=== PATIENT | female | born 1980 | race Caucasian/White ===

== ENCOUNTER → 2016-12-29 | Outpatient (CLI) | payer MEDICAID ==
[~2016-12-29] MED LIST: AMOX500C2 PO; BMSB30 PO; CYCL10TA9 PO; DIPH1TAB PO; DIPH1TAB25 PO; DIPH1TAB45 PO; HYDR-34 PO; HYDR-3812 PO; HYDR-623 PO; HYDR1TAB PO; LITH300C PO; LITH8SOL6 PO; LTH450TCR PO; METH4TAB PO; NAPR-243 PO; NAPR500T PO; PENI500T PO; PHEN16.297 PO; PRD20T PO; PRED20TA PO; THYR15TA PO; TRM50T PO; VENL75CA PO; VORT5TAB PO; ZOLP5TAB PO
[2016-12-29 13:12] LABS: ALANINE AMINOTRANSFERASE 8 U/L (0-55); ALBUMIN 3.8 G/DL (3.2-4.5); ANION GAP 7 MMOL/L (5-14); ASPARTATE AMINO TRANSFERASE 16 U/L (5-34); BILIRUBIN,TOTAL 0.2 MG/DL (0.1-1.0); BLOOD UREA NITROGEN 5 MG/DL (7-18); BUN/CREATININE RATIO 7; CARBON DIOXIDE 22 MMOL/L (21-32); CHLORIDE 108 MMOL/L (98-107); CREATININE SERUM 0.76 MG/DL (0.60-1.30); GFR ESTIMATED > 60; GLUCOSE 95 MG/DL (70-105); POTASSIUM 3.8 MMOL/L (3.6-5.0); SODIUM 137 MMOL/L (135-145); TOTAL PROTEIN 7.2 G/DL (6.4-8.2)
[2016-12-29 13:32] LABS: THYROID STIMULATING HORMONE 2.45 UIU/ML (0.35-4.94)
== END ==
LOC: LAB 12:37
PROVIDERS: ATTEND Nurse Practitioner Psychiatric/Mental Health
DX: Z51.81 Encounter for therapeutic drug level monitoring (principal); Z79.899 Other long term (current) drug therapy
CPT/HCPCS: 36415; 80053; 80178; 84443

== ENCOUNTER 2017-01-01 19:39 | Emergency (ER) | payer MEDICAID ==
[~2017-01-01] VITALS: Ht 162.6 cm; Wt 59.0 kg
[~2017-01-01 19:39] MED LIST changes: -NAPR500T PO
--- NOTE | 2017-01-01 19:51 | ED Hip Pain/Injury ---
General Chief Complaint: Hip/Pelvic Problems Stated Complaint: R LEG PAIN Source: patient Exam Limitations: no limitations History of Present Illness Time seen by provider: 19:48 Initial Comments To ER ambulatory with reports of right hip pain. She has intermittently had this problem for many years but states that it would be very brief and would go away on its own after only a few minutes. Today the pain has been persistent and worsened with any weightbearing of the right leg. She denies any known injury. Denies fevers or chills. She states that while she is walking she sometimes feels as though the hip is popped out of place and will go back into place. Timing/Duration: intermittent Severity: moderate Location: hip (R) Associated Symptoms: denies symptoms Allergies and Home Medications Allergies Coded Allergies: vancomycin (Unverified Allergy, Severe, 05/11/10) metoclopramide (Unverified Adverse Reaction, Intermediate, 05/11/10) Uncoded Allergies: DARVOCET (Allergy, Intermediate, 05/11/10) Home Medications No Active Prescriptions or Reported Meds Constitutional: see HPI EENTM: see HPI Respiratory: no symptoms reported Cardiovascular: no symptoms reported Genitourinary: no symptoms reported Musculoskeletal: see HPI Skin: no symptoms reported Psychiatric/Neurological: No Symptoms Reported Past Ioysfah-Gmjrns-Xmbccl Hx Patient Social History Type Used: Cigarettes Recent Foreign Travel: No Contact w/Someone Who Travel: No Recent Hopitalizations: No Immunizations Up To Date Tetanus Booster (TDap): Unknown Seasonal Allergies Seasonal Allergies: No Surgeries HX Surgeries: Yes (SMALL BOWEL RESECTION FOR CROHN'S ) Surgeries: Abdominal, Tubal Ligation Respiratory Hx Respiratory Disorders: No Cardiovascular Hx Cardiac Disorders: No Neurological Hx Neurological Disorders: No 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 System Hx 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 Disorders: 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 Genitourinary Hx Genitourinary Disorders: No Gastrointestinal Hx Gastrointestinal Disorders: Yes Gastrointestinal Disorders: Crohns Disease Musculoskeletal Hx Musculoskeletal Disorders: No Endocrine Hx Endocrine Disorders: Yes Endocrine Disorders: Hypothyroidsim HEENT HX ENT Disorders: No Cancer Hx Cancer: No Psychosocial Hx Psychiatric Problems: Yes (EXTREME NON-COMPLICANCE WITH MEDICATIONS ) Behavioral Health Disorders: Anxiety, Bipolar, Depression Integumentary HX Skin/Integumentary Disorder: No Blood Transfusions Hx Blood Disorders: No Adverse Reaction to a Blood Tr: No Physical Exam Vital Signs Vital Sign - Last 12Hours 01/01/17 19:45 Temp 97.9 Pulse 87 Resp 18 B/P (MAP) 145/97 Pulse Ox 99 O2 Delivery Room Air Capillary Refill : General Appearance: No Apparent Distress, WD/WN HEENT: PERRL/EOMI, TMs Normal Neck: Full Range of Motion, Normal Inspection Respiratory: No Accessory Muscle Use, No Respiratory Distress Gastrointestinal: Normal Bowel Sounds, Non Tender, Soft Extremity: Normal Capillary Refill, Normal Inspection Neurologic/Psychiatric: Alert, Oriented x3, No Motor/Sensory Deficits Skin: Normal Color, Warm/Dry Progress/Results/Core Measures Results/Orders My Orders Orders - IGOR MARIANO APRN Ct Extremity Lower Right Wo (01/01/17 19:47) Pelvis (01/01/17 19:47) Ketorolac Injection (Toradol Injection) (01/01/17 20:00) Orphenadrine Injection (Norflex Injectio (01/01/17 20:00) Medications Given in ED Current Medications Medications Dose Ordered Sig/Amaris Route Start Time Stop Time Status Last Admin Dose Admin Ketorolac Tromethamine 60 mg ONCE ONCE IM 01/01/17 20:00 01/01/17 20:01 DC 01/01/17 20:18 60 MG Orphenadrine Citrate 60 mg ONCE ONCE IM 01/01/17 20:00 01/01/17 20:01 DC 01/01/17 20:17 60 MG Vital Signs/I&O Vital Sign - Last 12Hours 01/01/17 19:45 Temp 97.9 Pulse 87 Resp 18 B/P (MAP) 145/97 Pulse Ox 99 O2 Delivery Room Air Departure Impression Impression: Primary Impression: Hip pain Qualified Codes: M25.551 - Pain in right hip Disposition: HOME, SELF-CARE Condition: Stable Departure-Patient Inst. Decision time for Depature: 20:31 Referrals: DAVID SNYDER MD [facility] (PCP/Family) Primary Care Physician KIM WOOD MD,ANGELA POTTS,NAHED Price MD Patient Instructions: Hip Pain Add. Discharge Instructions: 1. Medication as directed 2. Follow-up with one of the orthopedic surgeons next week. Call on Wednesday morning and orthopedic surgeon of your choosing to make an appointment for follow-up. All discharge instructions reviewed with patient and/or family. Voiced understanding. Scripts Naproxen (Naprosyn) 500 Mg Tablet 500 MG PO BID Y for PAIN, #30 TAB Prov: IGOR MARIANO APRN 01/01/17 IGOR MARIANO APRN Jan 01, 2017 19:50
[2017-01-01] MEDS ORDERED: KETOROLAC 60 MG/2 ML VIAL IM ONE (20:00)
[2017-01-01] MEDS ORDERED: ORPHENADRINE 60 MG/2 ML (NORFLEX) AMP IM ONE (20:00)
--- NOTE | 2017-01-01 20:28 | Diagnostic Imaging Report ---
PROCEDURE: CT right lower extremity without contrast. TECHNIQUE: Axially acquired CT was obtained through the right lower extremity without intravenous contrast. Coronal and sagittal reformations were also performed. INDICATION: Right hip pain. FINDINGS: The articular surfaces are smooth. The joint spaces appear even. There is no appreciable effusion. There is no fracture or dislocation. IMPRESSION: Negative CT of the right hip. Dictated by: Dictated on workstation # [id number]
--- NOTE | 2017-01-01 20:31 | Diagnostic Imaging Report ---
INDICATION: Right hip pain Shows asymmetric widening of the medial joint space of the hip. This could be due to an effusion. There is no fracture seen. IMPRESSION: Laterally displaced femur. Etiologies include possibility of an effusion. Dictated by: Dictated on workstation # [id number]
[2017-01-01] MEDS ORDERED: NAPR500T PO (20:32)
[2017-01-01 20:45] VITALS: BP 0/0
== END 2017-01-01 20:45 | disposition home or self-care (01) ==
LOC: EDUNIT# 19:39 → ER 19:40
DX: M25.551 Pain in right hip (principal)
CPT/HCPCS: 72170; 73700; 96372; 99283

== ENCOUNTER → 2017-02-08 | Outpatient (CLI) | payer MEDICAID ==
[~2017-02-08] MED LIST changes: +NAPR500T PO
--- NOTE | 2017-02-08 16:19 | Diagnostic Imaging Report ---
Bilateral breast ultrasound. Indication the left breast lump. Questionable asymmetry in the outer aspect of the right breast. Dense breasts. Findings: The four-quadrant and retroareolar region of each breast were scanned including the area of lump in the left breast at 2:00 zone 5 cm from the nipple with no underlying or mass seen. Impression: Negative study. Clinical followup of the palpable area is recommended. BI-RADS 1. Dictated by: Dictated on workstation # [id number]
--- NOTE | 2017-02-08 20:06 | Diagnostic Imaging Report ---
Bilateral diagnostic mammogram. INDICATION: Outer left breast palpable lump. The current study was also evaluated with a Computer Aided Detection (CAD) system. COMPARISON: No prior studies are available for comparison. FINDINGS: There is an asymmetry along the outer aspect of the right breast with focal compression view demonstrating no definite underlying abnormality which is suggestive of summation artifact of parenchyma. The palpable area is marked in the left breast with no underlying abnormality seen. IMPRESSION: Heterogeneously dense parenchyma with no definite underlying lesion. Ultrasound evaluation pending. ACR BI-RADS Category 0: Incomplete. (Needs additional imaging evaluation). Result letter will be mailed to the patient. Note: At least 10% of breast cancer is not imaged by mammography. Dictated by: Dictated on workstation # [id number]
== END ==
LOC: RAD 13:56
PROVIDERS: ATTEND Nurse Practitioner Adult Health
DX: N63 Unspecified lump in breast (principal)
CPT/HCPCS: 77066

== ENCOUNTER 2017-11-11 09:23 | Emergency (ER) | payer MEDICAID ==
[~2017-11-11] VITALS: Ht 162.6 cm; Wt 59.0 kg
[~2017-11-11 09:23] MED LIST changes: +ACHD5005 PO; -HYDR-3812 PO; +NAPR-1071 PO; -NAPR500T PO
[2017-11-11] MEDS ORDERED: LOPE1LIQ7 PO (09:53)
[2017-11-11] MEDS ORDERED: NS IV 1000 ML 1,000 ML IV ONE (10:04)
[2017-11-11] MEDS ORDERED: fentaNYL INJECTION 100 MCG/2 ML AMP IVP STA (10:05)
[2017-11-11 10:11] LABS: BASOPHILS % (AUTO) 1 % (0-10); EOSINOPHILS # (AUTO) 0.2 10^3/uL (0.0-0.3); EOSINOPHILS % (AUTO) 2 % (0-10); HEMATOCRIT 38 % (35-52); HEMOGLOBIN 12.6 G/DL (11.5-16.0); LYMPHOCYTES # (AUTO) 1.3 X 10^3 (1.0-4.0); LYMPHOCYTES % (AUTO) 15 % (12-44); MEAN CORPUSCULAR HEMOGLOBIN 27 PG (25-34); MEAN CORPUSCULAR HGB CONC 33 G/DL (32-36); MEAN CORPUSCULAR VOLUME 82 FL (80-99); MEAN PLATELET VOLUME 9.8 FL (7.4-10.4); MONOCYTES # (AUTO) 0.5 X 10^3 (0.0-1.0); MONOCYTES % (AUTO) 6 % (0-12); NEUTROPHILS # (AUTO) 6.5 X 10^3 (1.8-7.8); NEUTROPHILS % (AUTO) 76 % (42-75); PLATELET COUNT 433 10^3/uL (130-400); RED BLOOD COUNT 4.67 10^6/uL (4.35-5.85); RED CELL DISTRIBUTION WIDTH 13.7 % (10.0-14.5); WHITE BLOOD COUNT 8.6 10^3/uL (4.3-11.0)
[2017-11-11] MEDS ORDERED: NS 250 ML (IVPB) BAG IV ONE (10:30)
[2017-11-11] MEDS ORDERED: IOHEXOL 350 MG/ML 100 ML (OMNIPAQUE 350) VIAL IV ONE (10:30)
[2017-11-11 10:34] LABS: ALANINE AMINOTRANSFERASE 9 U/L (0-55); ALBUMIN 3.8 GM/DL (3.2-4.5); ALKALINE PHOSPHATASE 49 U/L (40-136); AMYLASE 92 U/L (25-125); BILIRUBIN,TOTAL 0.4 MG/DL (0.1-1.0); BUN/CREATININE RATIO 9; CALCIUM 8.9 MG/DL (8.5-10.1); CARBON DIOXIDE 23 MMOL/L (21-32); CHLORIDE 107 MMOL/L (98-107); CREATININE SERUM 0.69 MG/DL (0.60-1.30); GFR ESTIMATED > 60; GLUCOSE 87 MG/DL (70-105); LIPASE 26 U/L (8-78); POTASSIUM 4.4 MMOL/L (3.6-5.0); SODIUM 139 MMOL/L (135-145); TOTAL PROTEIN 7.2 GM/DL (6.4-8.2)
--- NOTE | 2017-11-11 10:35 | ED Abdominal Pain ---
General Chief Complaint: Abdominal/GI Problems Stated Complaint: PROBLEMS WITH CROHN'S Nursing Triage Note: PT HAS HX OF CROHN'S. DOES NOT SEE PCP FOR IT. SELF TREATS. TAKES IMODIUM DAILY. HAD GI "BUG" 2 WEEKS AGO. EVER SINCE, ABD HAS BEEN AN ISSUE. LAST NIGHT C/O GENERALIZED, DULL ABD PAIN ALL OVER. SHARP PAIN TO RUQ. Sepsis Screen: No Definite Risk Source of Information: Patient Exam Limitations: No Limitations History of Present Illness Date Seen by Provider: Nov 11, 2017 Time Seen by Provider: 10:32 Initial Comments To ER with diffuse abdominal pain nausea vomiting. Symptoms began last night. She vomited once last night has not vomited today. Last night the pain began sharp on the right side, today pain is more diffuse and she states her abdomen feels bloated. She denies fevers or chills. She denies bloody diarrhea. Timing/Duration: Getting Worse, Intermittent Severity/Quality: Moderate Radiation: No Radiation Activities at Onset: None Allergies and Home Medications Allergies Coded Allergies: vancomycin (Unverified Allergy, Severe, 05/11/10) metoclopramide (Unverified Adverse Reaction, Intermediate, 05/11/10) Uncoded Allergies: DARVOCET (Allergy, Intermediate, 05/11/10) Home Medications Loperamide HCl 1 Mg/7.5 Ml Liquid, 1 MG PO DAILY, (Reported) Review of Systems Constitutional: see HPI EENTM: No Symptoms Reported Respiratory: No Symptoms Reported Cardiovascular: No Symptoms Reported Gastrointestinal: See HPI, Abdominal Pain, Diarrhea, Nausea Genitourinary: No Symptoms Reported Skin: no symptoms reported Psychiatric/Neurological: No Symptoms Reported Past Mahnxje-Cilekp-Hhnwaw Hx Patient Social History Alcohol Use: Denies Use Number of Drinks Today: GG Alcohol Beverage of Choice: Whiskey Recreational Drug Use: Yes Type Used: Cigarettes Recent Foreign Travel: No Contact w/Someone Who Travel: No Recent Infectious Disease Expo: No Recent Hopitalizations: No Immunizations Up To Date Tetanus Booster (TDap): Unknown Seasonal Allergies Seasonal Allergies: No Surgeries History of Surgeries: Yes (SMALL BOWEL RESECTION FOR CROHN'S ) Surgeries: Abdominal, Tubal Ligation Respiratory History of Respiratory Disorde: No Cardiovascular History of Cardiac Disorders: No Neurological History of Neurological Disord: No 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 System Hx 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 Disorders: No 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 Genitourinary History of Genitourinary Disor: No Gastrointestinal History of Gastrointestinal Di: Yes Gastrointestinal Disorders: Crohns Disease Musculoskeletal History of Musculoskeletal Dis: No Endocrine History of Endocrine Disorders: Yes Endocrine Disorders: Hypothyroidsim HEENT History of HEENT Disorders: No Cancer History of Cancer: No Psychosocial History of Psychiatric Problem: Yes Behavioral Health Disorders: Bipolar Integumentary History of Skin or Integumenta: No Blood Transfusions History of Blood Disorders: No Adverse Reaction to a Blood Tr: No Physical Exam Vital Signs VS - Last 72 Hours, by Label 11/11/17 09:48 Temp 98.6 Pulse 82 Resp 18 B/P (MAP) 98/67 (77) Pulse Ox 98 O2 Delivery Room Air Capillary Refill : Less Than 3 Seconds General Appearance: WD/WN, no apparent distress HEENT: PERRL/EOMI, normal ENT inspection Neck: non-tender, full range of motion Respiratory: no respiratory distress, no accessory muscle use Gastrointestinal: normal bowel sounds, soft Extremities: normal range of motion, non-tender Neurologic/Psychiatric: alert, normal mood/affect, oriented x 3 Skin: normal color, warm/dry Progress/Results/Core Measures Results/Orders Lab Results Laboratory Tests Test 11/11/17 10:03 Range/Units White Blood Count 8.6 4.3-11.0 10^3/uL Red Blood Count 4.67 4.35-5.85 10^6/uL Hemoglobin 12.6 11.5-16.0 G/DL Hematocrit 38 35-52 % Mean Corpuscular Volume 82 80-99 FL Mean Corpuscular Hemoglobin 27 25-34 PG Mean Corpuscular Hemoglobin Concent 33 32-36 G/DL Red Cell Distribution Width 13.7 10.0-14.5 % Platelet Count 433 H 130-400 10^3/uL Mean Platelet Volume 9.8 7.4-10.4 FL Neutrophils (%) (Auto) 76 H 42-75 % Lymphocytes (%) (Auto) 15 12-44 % Monocytes (%) (Auto) 6 0-12 % Eosinophils (%) (Auto) 2 0-10 % Basophils (%) (Auto) 1 0-10 % Neutrophils # (Auto) 6.5 1.8-7.8 X 10^3 Lymphocytes # (Auto) 1.3 1.0-4.0 X 10^3 Monocytes # (Auto) 0.5 0.0-1.0 X 10^3 Eosinophils # (Auto) 0.2 0.0-0.3 10^3/uL Basophils # (Auto) 0.0 0.0-0.1 10^3/uL Erythrocyte Sedimentation Rate 12 0-20 MM/HR Sodium Level 139 135-145 MMOL/L Potassium Level 4.4 3.6-5.0 MMOL/L Chloride Level 107 98-107 MMOL/L Carbon Dioxide Level 23 21-32 MMOL/L Anion Gap 9 5-14 MMOL/L Blood Urea Nitrogen 6 L 7-18 MG/DL Creatinine 0.69 0.60-1.30 MG/DL Estimat Glomerular Filtration Rate > 60 BUN/Creatinine Ratio 9 Glucose Level 87 70-105 MG/DL Calcium Level 8.9 8.5-10.1 MG/DL Total Bilirubin 0.4 0.1-1.0 MG/DL Aspartate Amino Transf (AST/SGOT) 16 5-34 U/L Alanine Aminotransferase (ALT/SGPT) 9 0-55 U/L Alkaline Phosphatase 49 40-136 U/L C-Reactive Protein High Sensitivity 0.97 H 0.00-0.50 MG/DL Total Protein 7.2 6.4-8.2 GM/DL Albumin 3.8 3.2-4.5 GM/DL Amylase Level 92 25-125 U/L Lipase 26 8-78 U/L Serum Alcohol < 10 <10 MG/DL My Orders Orders - IGOR MARIANO APRN Alcohol (11/11/17 10:20) Erythrocyte Sedimentation Rate (11/11/17 10:20) Hs C Reactive Protein (11/11/17 10:20) Iohexol Injection (Omnipaque 350 Mg/Ml 1 (11/11/17 10:30) Ns (Ivpb) (Sodium Chloride 0.9%) (11/11/17 10:30) Ct Abdomen/Pelvis W (11/11/17 10:35) Diatrizoate Meglum/Sodium 37% (Gastrogra (11/11/17 11:15) Methylprednisolone Sod Succ (Solu-Medrol (11/11/17 12:30) Medications Given in ED Current Medications Medications Dose Ordered Sig/Amaris Route Start Time Stop Time Status Last Admin Dose Admin Diatrizoate Meglum/ Diatrizoate Sod 30 ml ONCE ONCE PO 11/11/17 11:15 11/11/17 11:16 DC 11/11/17 12:05 30 ML Iohexol 100 ml ONCE ONCE IV 11/11/17 10:30 11/11/17 10:31 DC 11/11/17 12:05 100 ML Sodium Chloride 250 ml ONCE ONCE IV 11/11/17 10:30 11/11/17 10:31 DC 11/11/17 12:05 80 ML Sodium Chloride 1,000 ml @ 0 mls/hr Q0M ONCE IV 11/11/17 10:04 11/11/17 10:05 DC 11/11/17 10:11 0 MLS/HR Vital Signs/I&O Vital Sign - Last 12Hours 11/11/17 09:48 Temp 98.6 Pulse 82 Resp 18 B/P (MAP) 98/67 (77) Pulse Ox 98 O2 Delivery Room Air Blood Pressure Mean: 77 Departure Communication (Admissions) Progress Notes 1241- I did review the CT images with Dr. Huertas on-call for surgery. He agrees with discharging patient to home on steroids plus or minus antibiotics. Impression Impression: Primary Impression: Crohns disease Disposition: HOME, SELF-CARE Condition: Improved Departure-Patient Inst. Decision time for Depature: 12:41 Referrals: MIKKI NANCE DO (PCP) Primary Care Physician FUNMILAYO SEO (Family) Primary Care Physician Patient Instructions: Crohn's Disease (DC) Add. Discharge Instructions: 1. You must follow-up with [facility] of next week. Call today to make an appointment. You will need referral to a neurological surgery teacher to better manage her Crohn's disease. If this is not better managed starting now he will end up with a second bowel resection in the very near future. Return to ER for any worsening pain or fevers. Take steroids antibiotics and pain medication as directed. Do not use alcohol with the antibiotics. All discharge instructions reviewed with patient and/or family. Voiced understanding. Scripts Prednisone (Prednisone) 5 Mg Tablet 60 MG PO UD, #78 TAB Prov: IGOR MARIANO PACKING AND FINAL ASSEMBLY SUPERVISOR 11/11/17 Metronidazole (Flagyl) 500 Mg Tablet 500 MG PO TID, #21 TAB Prov: IGOR MARIANO PACKING AND FINAL ASSEMBLY SUPERVISOR 11/11/17 Ciprofloxacin HCl (Cipro) 500 Mg Tablet 500 MG PO BID, #14 TAB Prov: IGOR MARIANO APRN 11/11/17 Hydrocodone/Acetaminophen ([place] 5-325 Tablet) 1 Each Tablet 1 EACH PO Q4H Y for PAIN-SEVERE, #14 TAB Do not fill unless Cipro, Flagyl, prednisone are also filled Prov: IGOR MARIANO APRN 11/11/17 IGOR MARIANO APRN Nov 11, 2017 10:34
[2017-11-11] MEDS ORDERED: DIATRIZOATE MEGLUM/SODIUM 37% 120 ML (GASTROGRAFIN) PO ONE (11:15)
[2017-11-11] MEDS ORDERED: methylPREDNISolone 125 MG (Solu-MEDROL) VIAL IVP ONE (12:30)
--- NOTE | 2017-11-11 12:35 | Diagnostic Imaging Report ---
PROCEDURE: CT abdomen and pelvis with contrast. TECHNIQUE: Multiple contiguous axial images were obtained through the abdomen and pelvis after administration of intravenous contrast. INDICATION: Abdominal pain for 2 days with nausea, vomiting and diarrhea. Patient has a history of Crohn's disease. Correlation is made with prior CT from 09/29/2015. FINDINGS: The lung bases are clear. No discrete liver mass is identified. The gallbladder is unremarkable. The pancreas and spleen are unremarkable. No adrenal mass is detected. The kidneys are unremarkable. Aorta is nonaneurysmal. Postsurgical changes in the right lower quadrant are again noted. There is a long segment of circumferential wall thickening involving the terminal ileum with adjacent inflammatory stranding and mucosal hyperenhancement suggestive of active Crohn's disease. There are prominent lymph nodes in the right lower quadrant as well. No fluid collection to suggest abscess formation is seen. No free air is identified. There is a small amount of free fluid in the dependent portion of the pelvis. A left adnexal cyst is seen measuring 3.7 cm. The bladder and uterus are unremarkable. IMPRESSION: 1. Long segment of circumferential wall thickening involving the terminal ileum with adjacent inflammatory stranding, mucosal hyperenhancement as well as adjacent right lower quadrant lymphadenopathy. Findings are suggestive of active inflammatory bowel disease. No abscess formation or free air is detected. 2. 3.7 cm left ovarian cyst. Dictated by: Dictated on workstation # [id number]
[2017-11-11] MEDS ORDERED: HYDR-757 PO (12:46)
[2017-11-11] MEDS ORDERED: METR500T PO (12:46)
[2017-11-11] MEDS ORDERED: PRED5TAB PO (12:46)
[2017-11-11] MEDS ORDERED: CIPR-225 PO (12:46)
[2017-11-11 13:07] VITALS: BP 123/70
== END 2017-11-11 13:07 | disposition home or self-care (01) ==
LOC: EDUNIT# 09:23 → ER 09:25
DX: K50.90 Crohn's disease, unspecified, without complications (principal); E03.9 Hypothyroidism, unspecified; F31.9 Bipolar disorder, unspecified; Z98.51 Tubal ligation status; Z87.19 Personal history of other diseases of the digestive system; Z88.1 Allergy status to other antibiotic agents; Z88.8 Allergy status to other drugs, medicaments and biological substances; Z88.6 Allergy status to analgesic agent
CPT/HCPCS: 36415; 74177; 80053; 80320; 82150; 83690; 85025; 85652; 86141; 96361; 96374; 96375

== ENCOUNTER 2018-01-02 01:59 | Emergency (ER) | payer MEDICAID ==
[~2018-01-02] VITALS: Ht 162.6 cm; Wt 59.0 kg
[~2018-01-02 01:59] MED LIST changes: +CIPR-225 PO; +HYDR-757 PO; +LOPE1LIQ7 PO; +METR500T PO; +PRED5TAB PO
[2018-01-02] MEDS ORDERED: LACTATED RINGERS 1,000 ML IV ONE (02:03)
[2018-01-02 02:05] VITALS: BP 169/118
[2018-01-02] MEDS ORDERED: LITH150C PO (02:05)
[2018-01-02] MEDS ORDERED: PANTOPRAZOLE 40 MG/10 ML (PROTONIX) VIAL IV ONE (02:15)
[2018-01-02] MEDS ORDERED: ONDANSETRON 4 MG/2 ML (SDV) Z0FRAN IVP ONE (02:15)
[2018-01-02 02:20] LABS: BILIRUBIN,URINE NEGATIVE (NEGATIVE); CLARITY,URINE CLEAR; GLUCOSE, URINE (UA) NEGATIVE (NEGATIVE); KETONES,URINE NEGATIVE (NEGATIVE); LEUKOCYTE ESTERASE ,URINE 1+ (NEGATIVE); NITRITE,URINE NEGATIVE (NEGATIVE); PH,URINE 6 (5-9); PROTEIN,URINE 2+ (NEGATIVE); UROBILINOGEN,URINE NORMAL (NORMAL)
--- NOTE | 2018-01-02 02:20 | ED General ---
General Chief Complaint: Abdominal/GI Problems Stated Complaint: GEN Nursing Triage Note: abdominal pain, Nursing Sepsis Screen: No Definite Risk Source of Information: Patient, Old Records Exam Limitations: Other (SOMEWHAT DIFFICULT HISTORIAN) History of Present Illness Date Seen by Provider: Jan 02, 2018 Time Seen by Provider: 01:58 Initial Comments PT ARRIVES VIA EMS FROM HOME PT WITH MULTIPLE COMPLAINTS PT STATES SHE IS BIPOLAR AND IS "FEELING OFF" STATES "I'M NOT MYSELF AT ALL" "DON'T FEEL LIKE MY MEDICINE IS WORKING AT ALL" STATES "I'M ON LITHIUM FOR BIPOLAR" STATES SHE THINKS HER MEDICATIONS ARE NOT BEING ABSORBED BECAUSE SHE HAS CROHN' S DENIES ANY MISSED DOSES OF MEDICATIONS OR CHANGES IN MEDICATIONS STATES SHE HAS HAD GENERALIZED ABDOMINAL PAIN FOR 12 HOURS C/O NAUSEA AND VOMITING X 1 WITH DRY HEAVES HAS CHRONIC DIARRHEA--HAS HAD 4 STOOLS TODAY. NO BLACK/BLOODY/TARRY STOOLS NO FEVER NO URINARY SYMPTOMS LMP--NOW ON REVIEW OF OLD RECORDS, PT HAS LONG HISTORY OF EXTREME NON-COMPLIANCE IN ALL ASPECTS OF CARE POLICE ARE FAMILIAR WITH PT PCP: DR. CURTIS PSYCH; Naseem LUCAS AT [facility] Allergies and Home Medications Allergies Coded Allergies: vancomycin (Unverified Allergy, Severe, 05/11/10) metoclopramide (Unverified Adverse Reaction, Intermediate, 05/11/10) Uncoded Allergies: DARVOCET (Allergy, Intermediate, 05/11/10) Home Medications Loperamide HCl 1 Mg/7.5 Ml Liquid, 1 MG PO DAILY, (Reported) Patient Home Medication List Home Medication List Reviewed: Yes Review of Systems Constitutional: no symptoms reported EENTM: no symptoms reported Respiratory: no symptoms reported Cardiovascular: no symptoms reported Gastrointestinal: see HPI, abdominal pain, diarrhea; No loss of appetite; nausea, vomiting Genitourinary: no symptoms reported LMP: Jan 02, 2018 Musculoskeletal: no symptoms reported Skin: no symptoms reported Psychiatric/Neurological: See HPI, Anxiety, Emotional Problems Hematologic/Lymphatic: No Symptoms Reported Immunological/Allergic: no symptoms reported Past Lrsjebp-Athfnb-Rbgzcl Hx Patient Social History Alcohol Use: Occasionally Uses (CLAIMS "OCCASIONAL" ALCOHOL USE--PT HAS BEEN HEAVILY INTOXICATED ON PREVIOUS ER VISITS) Number of Drinks Today: GG Alcohol Beverage of Choice: Whiskey Recreational Drug Use: No Smoking Status: Current Everyday Smoker (1 PPD) Type Used: Cigarettes 2nd Hand Smoke Exposure: Yes Recent Foreign Travel: No Contact w/Someone Who Travel: No Recent Infectious Disease Expo: No Recent Hopitalizations: No Immunizations Up To Date Tetanus Booster (TDap): Unknown Seasonal Allergies Seasonal Allergies: No Past Medical History Surgeries: Yes (SMALL BOWEL RESECTION FOR CROHN'S ) Abdominal, Bowel Surgery, Tubal Ligation Respiratory: No Cardiac: No Neurological: No : No 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 Disorders: No 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 ) Bipolar Integumentary: No Blood Disorders: No Adverse Reaction/Blood Tranf: No Physical Exam Vital Signs Capillary Refill : Less Than 3 Seconds General Appearance: No Apparent Distress, Anxious, Thin, Other (PT RANTING AND SCREAMING, NON-STOP DURING COURSE OF ER STAY; SPEECH CLEAR, GAIT STEADY; + ODOR OF ALCOHOL) HEENT: PERRL/EOMI, Other (ORAL MUCOSA MOIST) Neck: Normal Inspection Respiratory: Normal Breath Sounds, No Accessory Muscle Use, No Respiratory Distress Cardiovascular: Regular Rate, Rhythm, No Edema, No JVD, No Murmur, Normal Peripheral Pulses Gastrointestinal: Normal Bowel Sounds, No Organomegaly, No Pulsatile Mass, Non Tender, Soft Extremity: Normal Inspection Neurologic/Psychiatric: Alert, Oriented x3, No Motor/Sensory Deficits, anesthetist II- XII Norm as Tested, Other ( ABOVE) Skin: Normal Color, Warm/Dry Progress/Results/Core Measures Suspected Sepsis Recent Fever Within 48 Hours: No Infection Criteria Present: None New/Unexplained Altered Menta: No Sepsis Screen: No Definite Risk SIRS Temperature:98.5 Pulse: 119 Respiratory Rate: 22 Blood Pressure 169 /118 Mean: 135 Results/Orders My Orders Medications Given in ED Vital Signs/I&O Capillary Refill : Less Than 3 Seconds Blood Pressure Mean: 135 Progress Note : Progress Note [place] [employer] ALREADY HERE IN ER, AND ARE IN ROOM WITH PT, TRYING TO CALM HER DOWN PT CONTINUES TO RANT AND SCREAM FOR NO APPARENT REASON 0240--PT RIPPED OUT IV AND LEFT BUILDING, THEN CAME BACK IN A SHORT TIME LATER, SCREAMING AND YELLLING, EXTREMELY BELLIGERENT AND CURSING, STATING "NO ONE'S HELPING ME" ( PT HAD ALREADY BEEN SEEN AND EXAMINED AND TESTS ORDERED AND EXPLAINED WHAT WE WOULD BE DOING IN ER, AND NO RESULTS ARE BACK YET) 0258--PT SIGNED OUT AMA. PT HAS EXHIBITED THIS TYPE BEHAVIOR ON PREVIOUS ER VISITS--BELLIGERENT, CURSING , RIPPING OUT HER IV AND LEAVING AMA ECG Initial ECG Impression Date: Jan 02, 2018 Initial ECG Impression Time: 02:06 Initial ECG Rate: 103 Initial ECG Rhythm: Normal Sinus Departure Impression Primary Impression: Left against medical advice Additional Impressions: Alcohol intoxication BELLIGERENT BEHAVIOR HISTORY OF NON-COMPLIANCE Disposition: 09 ADMITTED INPATIENT Condition: Against Medical Advice Departure-Patient Inst. Referrals: MIKKI NANCE DO (PCP) Primary Care Physician FUNMILAYO SEO (Family) Primary Care Physician TRISH JOLLEY DO Jan 02, 2018 02:20
[2018-01-02 02:25] LABS: BASOPHILS % (AUTO) 0 % (0-10); EOSINOPHILS # (AUTO) 0.2 10^3/uL (0.0-0.3); EOSINOPHILS % (AUTO) 2 % (0-10); HEMATOCRIT 38 % (35-52); HEMOGLOBIN 12.7 G/DL (11.5-16.0); LYMPHOCYTES # (AUTO) 2.6 X 10^3 (1.0-4.0); LYMPHOCYTES % (AUTO) 27 % (12-44); MEAN CORPUSCULAR HEMOGLOBIN 27 PG (25-34); MEAN CORPUSCULAR HGB CONC 34 G/DL (32-36); MEAN CORPUSCULAR VOLUME 79 FL (80-99); MEAN PLATELET VOLUME 8.9 FL (7.4-10.4); MONOCYTES # (AUTO) 0.4 X 10^3 (0.0-1.0); MONOCYTES % (AUTO) 4 % (0-12); NEUTROPHILS # (AUTO) 6.3 X 10^3 (1.8-7.8); NEUTROPHILS % (AUTO) 66 % (42-75); PLATELET COUNT 567 10^3/uL (130-400); RED CELL DISTRIBUTION WIDTH 15.3 % (10.0-14.5); WHITE BLOOD COUNT 9.5 10^3/uL (4.3-11.0)
[2018-01-02 02:33] LABS: BACTERIA,URINE TRACE /HPF; COLOR,URINE DARK YELLOW; RBC,URINE >100 /HPF
[2018-01-02 02:36] LABS: AMPHETAMINE SCREEN, URINE NEGATIVE (NEGATIVE); BARBITURATE SCREEN URINE NEGATIVE (NEGATIVE); BENZODIAZEPINES SCREEN URINE NEGATIVE (NEGATIVE); CANNABINOID SCREEN, URINE NEGATIVE (NEGATIVE); COCAINE SCREEN URINE NEGATIVE (NEGATIVE); METHADONE STAT NEGATIVE (NEGATIVE); METHAMPHETAMINE SCREEN URINE S NEGATIVE (NEGATIVE); OPIATE SCREEN URINE NEGATIVE (NEGATIVE); OXYCODONE STAT NEGATIVE (NEGATIVE); PROPOXYPHENE STAT NEGATIVE (NEGATIVE); TRICYCLIC ANTIDEPRESSANTS SCRE NEGATIVE (NEGATIVE)
[2018-01-02 02:46] LABS: ALANINE AMINOTRANSFERASE 13 U/L (0-55); ALKALINE PHOSPHATASE 58 U/L (40-136); AMYLASE 69 U/L (25-125); BILIRUBIN,TOTAL 0.3 MG/DL (0.1-1.0); BUN/CREATININE RATIO 12; CALCIUM 8.5 MG/DL (8.5-10.1); CARBON DIOXIDE 21 MMOL/L (21-32); CHLORIDE 108 MMOL/L (98-107); CREATININE SERUM 0.68 MG/DL (0.60-1.30); GFR ESTIMATED > 60; GLUCOSE 86 MG/DL (70-105); LIPASE 33 U/L (8-78); MAGNESIUM 2.1 MG/DL (1.8-2.4); SALICYLATE < 5.0 MG/DL (5.0-20.0); SODIUM 140 MMOL/L (135-145); TOTAL PROTEIN 7.2 GM/DL (6.4-8.2)
[2018-01-02 02:48] LABS: ACETAMINOPHEN < 10 UG/ML (10-30)
[2018-01-02 03:05] LABS: TSH (THYROID ANALYZER) 1.42 UIU/ML (0.35-4.94)
--- NOTE | 2018-01-10 07:41 | Physician Query-Final Dx ---
BIA IRENE 01/10/18 0741: Clinic Account Progress/Dx Physician Query: Please give diagnosis Date of Service Jan 02, 2018 at 02:01 Progress Note: Bia [phone] TRISH JOLLEY DO 01/22/18 0818: Clinic Account Progress/Dx DIAGNOSIS: Diagnosis LEFT CAMIMarylin BIA IRENE Jan 10, 2018 07:41 TRISH JOLLEY DO Jan 22, 2018 08:18
== END 2018-01-02 03:00 | disposition left against medical advice (07) ==
LOC: EDUNIT# 01:59 → ER 02:01
DX: F10.129 Alcohol abuse with intoxication, unspecified (principal); F91.1 Conduct disorder, childhood-onset type; F31.9 Bipolar disorder, unspecified; E03.9 Hypothyroidism, unspecified; F17.210 Nicotine dependence, cigarettes, uncomplicated; Z98.51 Tubal ligation status; Z91.14 Patient's other noncompliance with medication regimen; Z87.19 Personal history of other diseases of the digestive system; Z88.1 Allergy status to other antibiotic agents; Z88.8 Allergy status to other drugs, medicaments and biological substances
CPT/HCPCS: 36415; 80053; 80178; 80306; 80320; 80329; 81000; 82150; 83690; 83735; 84443; 84484; 85025; 93005; 96374; 96375

== ENCOUNTER 2018-04-03 11:06 | Emergency (ER) | payer MEDICAID ==
[~2018-04-03] VITALS: Ht 160 cm; Wt 59.0 kg
[~2018-04-03 11:06] MED LIST changes: +LITH150C PO
[2018-04-03] MEDS ORDERED: LACTATED RINGERS 1,000 ML IV ONE ×2 (11:23→12:54)
[2018-04-03] MEDS ORDERED: ONDANSETRON 4 MG/2 ML (SDV) Z0FRAN IVP ONE (11:30)
[2018-04-03] MEDS ORDERED: fentaNYL INJECTION 100 MCG/2 ML AMP IVP ONE (11:30)
[2018-04-03] MEDS ORDERED: methylPREDNISolone 40 MG/ML (Solu-MEDROL) VIAL IV ONE (11:30)
--- NOTE | 2018-04-03 11:31 | ED Abdominal Pain ---
General Stated Complaint: CROHNS DISEASE/PAIN/BLEEDING Source of Information: Patient, Family Exam Limitations: No Limitations History of Present Illness Date Seen by Provider: Apr 03, 2018 Time Seen by Provider: 11:15 Initial Comments The patient presents to the ER by private conveyance with a chief complaint she' s been having for the past several days abdominal pain so she never right lower quadrant with copious loose stools, dumping syndrome, and now last couple days some bright red blood at the rectum when wiping. She does not have a history of fissures but she does have a history of Crohn's disease for several years now. She is not on any anti-rheumatologic's. She about 6 weeks ago finished a 6 week course of prednisone that was prescribed to her from this ER. 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 She's been having copious frequent loose stools and today she vomited times one. She's been using loperamide all day long with no significant benefit. Patient says she's had partial colectomy secondary to her Crohn's several years ago and at that time they took her gallbladder as well. She still has her appendix. She's also had a tubal ligation. Allergies and Home Medications Allergies Coded Allergies: vancomycin (Unverified Allergy, Severe, 05/11/10) metoclopramide (Unverified Adverse Reaction, Intermediate, 05/11/10) Uncoded Allergies: DARVOCET (Allergy, Intermediate, 05/11/10) Home Medications Loperamide HCl 1 Mg/7.5 Ml Liquid, 1 MG PO DAILY, (Reported) Patient Home Medication List Home Medication List Reviewed: Yes Review of Systems Constitutional: No chills, No diaphoresis, No fever; malaise EENTM: No Blurred Vision, No Double Vision Respiratory: Denies Cough, Denies Shortness of Air Cardiovascular: Denies Chest Pain, Denies Edema Gastrointestinal: Denies Abdomen Distended; Abdominal Pain; Denies Constipated ; Diarrhea; Denies Difficulty Swallowing; Nausea, Rectal Bleeding, Vomiting Genitourinary: Denies Burning, Denies Discharge, Denies Drainage Musculoskeletal: No back pain, No joint pain Skin: No pruritus, No rash Psychiatric/Neurological: Denies Anxiety, Denies Depressed, Denies Headache, Denies Numbness Past Znakqpc-Ekfvhb-Ovzyrp Hx Patient Social History Alcohol Use: Denies Use Smoking Status: Former Smoker Type Used: Cigarettes Former Smoker, Quit: Feb 25, 2018 2nd Hand Smoke Exposure: Yes Recent Foreign Travel: No Contact w/Someone Who Travel: No Recent Hopitalizations: No Immunizations Up To Date Tetanus Booster (TDap): Unknown Seasonal Allergies Seasonal Allergies: No Past Medical History Surgeries: Yes (SMALL BOWEL RESECTION FOR CROHN'S ) Abdominal, Bowel Surgery, Tubal Ligation Respiratory: No Cardiac: No Neurological: No 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 Disorders: No [employer] History: Tubal Ligation Genitourinary: No Gastrointestinal: Yes Crohns Disease Musculoskeletal: No Endocrine: Yes Hypothyroidsim HEENT: No Cancer: No Psychosocial: Yes Bipolar Integumentary: No Blood Disorders: No Adverse Reaction/Blood Tranf: No Physical Exam Vital Signs Vital Signs - First Documented 04/03/18 11:11 Pulse 122 Resp 20 B/P (MAP) 105/80 (88) Pulse Ox 98 O2 Delivery Room Air Capillary Refill : Height/Weight/BMI Height: 5', 4.00" Weight: 130lbs oz, 58.309000xa Method:Stated ,21.79BMI General Appearance: WD/WN, mild distress HEENT: PERRL/EOMI, pharynx normal (dry oral mucosa) Neck: non-tender, normal inspection Respiratory: chest non-tender, lungs clear, normal breath sounds, no respiratory distress, no accessory muscle use Cardiovascular: normal peripheral pulses, regular rate, rhythm, no edema Peripheral Pulses: 2+ Dorsalis Pedis (R), 2+ Left Dors-Pedis (L) Gastrointestinal: normal bowel sounds (active), no organomegaly, no pulsatile mass, guarding; No rebound; tenderness (right lower quadrant generally as well as McBurney's point); No mass; other (right psoas sign is positive. Rovsing sign positive.) Genital/Rectal: other (6:00 position small superficial fissure without involvement of the muscularis.) Extremities: normal range of motion, non-tender, normal inspection, normal capillary refill Neurologic/Psychiatric: alert, normal mood/affect Skin: normal color, warm/dry Progress/Results/Core Measures Results/Orders Lab Results Laboratory Tests Test 04/03/18 11:24 04/03/18 11:27 Range/Units Urine Color YELLOW Urine Clarity SLIGHTLY CLOUDY Urine pH 7 5-9 Urine Specific [place] 1.005 L 1.016-1.022 Urine Protein NEGATIVE NEGATIVE Urine Glucose (UA) 1+ H NEGATIVE Urine Ketones NEGATIVE NEGATIVE Urine Nitrite NEGATIVE NEGATIVE Urine Bilirubin NEGATIVE NEGATIVE Urine Urobilinogen NORMAL NORMAL MG/DL Urine Leukocyte Esterase NEGATIVE NEGATIVE Urine RBC (Auto) NEGATIVE NEGATIVE Urine RBC NONE /HPF Urine WBC NONE /HPF Urine Squamous Epithelial Cells RARE /HPF Urine Crystals NONE /LPF Urine Bacteria NEGATIVE /HPF Urine Casts NONE /LPF Urine Mucus NEGATIVE /LPF Urine Culture Indicated NO White Blood Count 7.9 4.3-11.0 10^3/uL Red Blood Count 4.84 4.35-5.85 10^6/uL Hemoglobin 12.7 11.5-16.0 G/DL Hematocrit 39 35-52 % Mean Corpuscular Volume 80 80-99 FL Mean Corpuscular Hemoglobin 26 25-34 PG Mean Corpuscular Hemoglobin Concent 33 32-36 G/DL Red Cell Distribution Width 14.7 H 10.0-14.5 % Platelet Count 460 H 130-400 10^3/uL Mean Platelet Volume 10.0 7.4-10.4 FL Neutrophils (%) (Auto) 76 H 42-75 % Lymphocytes (%) (Auto) 16 12-44 % Monocytes (%) (Auto) 7 0-12 % Eosinophils (%) (Auto) 1 0-10 % Basophils (%) (Auto) 1 0-10 % Neutrophils # (Auto) 6.0 1.8-7.8 X 10^3 Lymphocytes # (Auto) 1.3 1.0-4.0 X 10^3 Monocytes # (Auto) 0.5 0.0-1.0 X 10^3 Eosinophils # (Auto) 0.1 0.0-0.3 10^3/uL Basophils # (Auto) 0.0 0.0-0.1 10^3/uL Sodium Level 144 135-145 MMOL/L Potassium Level 2.8 L 3.6-5.0 MMOL/L Chloride Level 115 H 98-107 MMOL/L Carbon Dioxide Level 19 L 21-32 MMOL/L Anion Gap 10 5-14 MMOL/L Blood Urea Nitrogen 4 L 7-18 MG/DL Creatinine 0.75 0.60-1.30 MG/DL Estimat Glomerular Filtration Rate > 60 BUN/Creatinine Ratio 5 Glucose Level 117 H 70-105 MG/DL Calcium Level 9.7 8.5-10.1 MG/DL Magnesium Level 2.5 H 1.8-2.4 MG/DL Total Bilirubin 0.3 0.1-1.0 MG/DL Aspartate Amino Transf (AST/SGOT) 15 5-34 U/L Alanine Aminotransferase (ALT/SGPT) 7 0-55 U/L Alkaline Phosphatase 57 40-136 U/L Total Protein 7.4 6.4-8.2 GM/DL Albumin 4.1 3.2-4.5 GM/DL My Orders Orders - LOS HENSON Ct Abdomen/Pelvis W (04/03/18 11:23) Cbc With Automated Diff (04/03/18 11:23) Comprehensive Metabolic Panel (04/03/18 11:23) Magnesium (04/03/18 11:23) Ua Culture If Indicated (04/03/18 11:23) Saline Lock/Iv-Start (04/03/18 11:23) Lactated Ringers (Lr 1000 Ml Iv Solution (04/03/18 11:23) Fentanyl Injection (Sublimaze Injection (04/03/18 11:30) Ondansetron Injection (Zofran Injectio (04/03/18 11:30) Methylprednisolone Sod Succ (Solu-Medrol (04/03/18 11:30) Iohexol Injection (Omnipaque 350 Mg/Ml 1 (04/03/18 11:45) Ns (Ivpb) (Sodium Chloride 0.9%) (04/03/18 11:45) Pharmacy Communication (Pharmacy Communi (04/03/18 11:32) Potassium Cl 10meq/50ml Ivpb (Kcl 10 Meq (04/03/18 13:00) Saline Lock/Iv-Start (04/03/18 12:54) Lactated Ringers (Lr 1000 Ml Iv Solution (04/03/18 12:54) Ondansetron Oral Dissolve Tab (Zofran (04/03/18 13:15) Medications Given in ED Current Medications Medications Dose Ordered Sig/Amaris Route Start Time Stop Time Status Last Admin Dose Admin Fentanyl Citrate 50 mcg ONCE ONCE IVP 04/03/18 11:30 04/03/18 11:31 DC 04/03/18 11:36 50 MCG Iohexol 100 ml ONCE ONCE IV 04/03/18 11:45 04/03/18 11:46 DC 04/03/18 12:09 100 ML Lactated Ringer's 1,000 ml @ 0 mls/hr Q0M ONCE IV 04/03/18 11:23 04/03/18 11:28 DC 04/03/18 11:34 1,000 MLS/HR Lactated Ringer's 1,000 ml @ 0 mls/hr Q0M ONCE IV 04/03/18 12:54 04/03/18 12:55 DC 04/03/18 13:01 1,000 MLS/HR Methylprednisolone Sodium Succinate 40 mg ONCE ONCE IV 04/03/18 11:30 04/03/18 11:31 DC 04/03/18 11:35 40 MG Ondansetron HCl 4 mg ONCE ONCE IVP 04/03/18 11:30 04/03/18 11:31 DC 04/03/18 11:36 4 MG Ondansetron HCl 4 mg ONCE ONCE PO 04/03/18 13:15 04/03/18 13:16 DC 04/03/18 13:13 4 MG Potassium Chloride 50 ml @ 50 mls/hr ONCE ONCE IV 04/03/18 13:00 04/03/18 13:59 04/03/18 13:01 50 MLS/HR Sodium Chloride 250 ml ONCE ONCE IV 04/03/18 11:45 04/03/18 11:46 DC 04/03/18 12:09 80 ML Vital Signs/I&O 04/03/18 11:11 Pulse 122 Resp 20 B/P (MAP) 105/80 (88) Pulse Ox 98 O2 Delivery Room Air Progress Progress Note #1: Time: 11:39 Progress Note The patient's tachycardic. Crohn's flare versus appendicitis versus abscess. Really get a CT with contrast started with a liter of fluids and some fentanyl for pain. We'll also start her on some steroids and if necessary to start her on anti-infective. We'll give her some Zofran for her nausea and obtain basic labs and urinalysis. Because of her tubal ligation we can dispense with the hCG. Progress Note #2: Time: 12:03 Progress Note Crohn's disease activity index score of 376 putting her in the moderate to severe activity range for Crohn's disease. Progress Note #3: Time: 12:53 Progress Note Potassium is low at 2.8 or any give her 10 mEq IV since she's had dumping syndrome in addition to the LR she has received and another bag of LR for 2 L total. She's feeling better her nausea is improve or any give her 1 more dose and then let her go home with a plan to follow up outpatient with her primary care doctor. Diagnostic Imaging Diagonstic Imaging: CT (with contrast) Plain Films/CT/US/NM/MRI: abdomen, pelvis Comments VIA [facility]. [place], [place] NAME: ELLIS GANT [facility] REC#: [id number] PT STATUS: REG ER : 1980 PHYSICIAN: LOS HENSON MD ADMIT DATE: 04/03/18/ER Draft Date of Exam:04/03/18 CT ABDOMEN/PELVIS W PROCEDURE: CT abdomen and pelvis with contrast. TECHNIQUE: Multiple contiguous axial images were obtained through the abdomen and pelvis after administration of intravenous contrast. INDICATION: Crohn's disease. Stricture in the intestines. Loose painful stools and bleeding. EXAMINATION: CT abdomen and pelvis with contrast 04/03/2018 COMPARISON: 11/11/2017 FINDINGS: The lung bases demonstrate no evidence for acute abnormality. They appear clear. Within the abdomen and the pelvis the liver demonstrates fatty infiltration and is somewhat prominent in appearance. The spleen, adrenal glands and pancreas are unremarkable. The kidneys demonstrate no acute abnormality. The right ureter is slightly prominent but similar to previous with no distal obstructive process seen and contrast seen along its entire course into the bladder on delayed imaging. There is no free fluid or air in the abdomen. Within the lower abdomen into the pelvis, postoperative changes seen with a suture line in the cecum. There is an enlarged loop of bowel within the right lower quadrant which demonstrates marked wall thickening similar to the prior examination. No adjacent free air or fluid collection to suggest abscess noted. There is minimal free fluid in the pelvis, perhaps physiologic or reactive in nature. There is a cystic lesion in the left adnexa approximately 3.7 cm in greatest dimension. This is unchanged from the prior, likely ovarian in nature. Followup with sonography could be performed to assure resolution and/or stability at a short-term interval as clinically warranted. Within the right lower quadrant multiple prominent lymph nodes are seen which are likely reactive in nature. The osseous structures demonstrate no evidence for acute abnormality. IMPRESSION: 1. Circumferential wall thickening and enhancement in the terminal ileum and distal small bowel loops with minimal adjacent inflammatory change as well as reactive lymphadenopathy suggesting exacerbation of the patient's known Crohn's disease. No free air identified. 2. Stable-appearing cystic lesion, left adnexa. See above discussion. 3. Oval hypodense area noted anterior to the liver and immediately inferior to the ribs measuring almost 16 mm in greatest dimension and is stable from previous imaging. This is of uncertain etiology. It could represent a small hematoma. Abscess is felt to be unlikely given its stability in the last 5 months. A benign cystic lesion is possible, as well. Continued followup of this area would be recommended to exclude an enlarging cystic mass Dictated on workstation # [id number] Dict: 04/03/18 1212 Trans: 04/03/18 1235 [facility] [id number] Interpreted by: GÉNESIS DAVID MD Electronically signed by: Reviewed: Reviewed by Me Departure Impression Primary Impression: Crohn's colitis Qualified Codes: K50.111 - Crohn's disease of large intestine with rectal bleeding Additional Impressions: Fissure in ano Hypokalemia Dehydration, mild Disposition: 01 HOME, SELF-CARE Condition: Improved Departure-Patient Inst. Decision time for Depature: 13:52 Referrals: BARTOLO CURTIS MD (PCP/Family) Primary Care Physician MARY GRACE MARRERO DO Patient Instructions: Crohn's Disease (DC) Add. Discharge Instructions: Make sure drinking plenty of fluids. 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 catalyst supervisor the prednisone and start taking 40 mg a day for 2 weeks. Then start taking 3 of the 10 mg prednisone's daily for one. Then take one 20 mg tablet daily for one week. Finally take one 10 mg tablet daily for one week. Avoid NSAIDs such as ibuprofen, Naprosyn, Aleve. Take the prescription to a compounding pharmacy and have them make the nifedipine gel. Apply 1 g of the gel to the rectum up to 4 times a day for relief of your fissure pain until it goes away. Try and eat a high-fiber diet. If you have breakthrough pain you can use 1-2 tablets of the hydrocodone every 6 hours as needed to control your pain. Scripts Potassium Chloride (Potassium Chloride) 20 Meq Tablet.er 20 MEQ PO BID for 7 Days, #14 TAB 0 Refills Prov: LOS HENSON 04/03/18 Hydrocodone Bit/Acetaminophen (Hydrocodone/Acetaminophen 5/325mg Tablet) 1 Tab Tab 1-2 EACH PO Q6H PRN for BREAKTHROUGH PAIN, #15 TAB 0 Refills Prov: LOS HENSON 04/03/18 Ondansetron (Ondansetron Odt) 4 Mg Tab.rapdis 4 MG PO Q6H PRN for NAUSEA/VOMITING, #10 TAB 0 Refills Prov: LOS HENSON 04/03/18 Prednisone (Prednisone) 10 Mg Tab 10 MG PO DAILY, #28 TAB 40mg day for 2 weeks. 2x20mg tab 30mg day for 1 week. 3x10mg tab 20mg day for 1 week. 1x20mg tab 10mg day for 1 week. Prov: LOS HENSON 04/03/18 Prednisone (Prednisone) 20 Mg Tab 40 MG PO DAILY, #35 TAB 0 Refills 40mg day for 2 weeks. 2x20mg tab 30mg day for 1 week. 3x10mg tab 20mg day for 1 week. 1x20mg tab 10mg day for 1 week. Prov: LOS HENSON 04/03/18 Work/School Note: Work Release Form Date Seen in the Emergency Department: Apr 03, 2018 Return to Work: Apr 04, 2018 Restrictions: No Restrictions Copy Copies To 1: BARTOLO CURTIS MD, TITUS J Apr 03, 2018 11:31
[2018-04-03 11:34] LABS: BASOPHILS % (AUTO) 1 % (0-10); EOSINOPHILS # (AUTO) 0.1 10^3/uL (0.0-0.3); EOSINOPHILS % (AUTO) 1 % (0-10); HEMATOCRIT 39 % (35-52); HEMOGLOBIN 12.7 G/DL (11.5-16.0); LYMPHOCYTES # (AUTO) 1.3 X 10^3 (1.0-4.0); LYMPHOCYTES % (AUTO) 16 % (12-44); MEAN CORPUSCULAR HEMOGLOBIN 26 PG (25-34); MEAN CORPUSCULAR HGB CONC 33 G/DL (32-36); MEAN CORPUSCULAR VOLUME 80 FL (80-99); MONOCYTES # (AUTO) 0.5 X 10^3 (0.0-1.0); MONOCYTES % (AUTO) 7 % (0-12); NEUTROPHILS % (AUTO) 76 % (42-75); PLATELET COUNT 460 10^3/uL (130-400); RED BLOOD COUNT 4.84 10^6/uL (4.35-5.85); RED CELL DISTRIBUTION WIDTH 14.7 % (10.0-14.5); WHITE BLOOD COUNT 7.9 10^3/uL (4.3-11.0)
[2018-04-03 11:34] LABS: BILIRUBIN,URINE NEGATIVE (NEGATIVE); CLARITY,URINE SLIGHTLY CLOUDY; COLOR,URINE YELLOW; GLUCOSE, URINE (UA) 1+ (NEGATIVE); KETONES,URINE NEGATIVE (NEGATIVE); LEUKOCYTE ESTERASE ,URINE NEGATIVE (NEGATIVE); NITRITE,URINE NEGATIVE (NEGATIVE); PH,URINE 7 (5-9); PROTEIN,URINE NEGATIVE (NEGATIVE); UROBILINOGEN,URINE NORMAL (NORMAL)
[2018-04-03 11:40] LABS: BACTERIA,URINE NEGATIVE /HPF; SQUAMOUS EPITHELIAL CELL,UR RARE /HPF
[2018-04-03] MEDS ORDERED: NS 250 ML (IVPB) BAG IV ONE (11:45)
[2018-04-03] MEDS ORDERED: IOHEXOL 350 MG/ML 100 ML (OMNIPAQUE 350) VIAL IV ONE (11:45)
[2018-04-03 11:53] LABS: ALANINE AMINOTRANSFERASE 7 U/L (0-55); ALBUMIN 4.1 GM/DL (3.2-4.5); ALKALINE PHOSPHATASE 57 U/L (40-136); BILIRUBIN,TOTAL 0.3 MG/DL (0.1-1.0); BUN/CREATININE RATIO 5; CALCIUM 9.7 MG/DL (8.5-10.1); CARBON DIOXIDE 19 MMOL/L (21-32); CHLORIDE 115 MMOL/L (98-107); CREATININE SERUM 0.75 MG/DL (0.60-1.30); GFR ESTIMATED > 60; GLUCOSE 117 MG/DL (70-105); MAGNESIUM 2.5 MG/DL (1.8-2.4); POTASSIUM 2.8 MMOL/L (3.6-5.0); SODIUM 144 MMOL/L (135-145); TOTAL PROTEIN 7.4 GM/DL (6.4-8.2)
--- NOTE | 2018-04-03 12:35 | Diagnostic Imaging Report ---
PROCEDURE: CT abdomen and pelvis with contrast. TECHNIQUE: Multiple contiguous axial images were obtained through the abdomen and pelvis after administration of intravenous contrast. INDICATION: Crohn's disease. Stricture in the intestines. Loose painful stools and bleeding. EXAMINATION: CT abdomen and pelvis with contrast 04/03/2018 COMPARISON: 11/11/2017 FINDINGS: The lung bases demonstrate no evidence for acute abnormality. They appear clear. Within the abdomen and the pelvis the liver demonstrates fatty infiltration and is somewhat prominent in appearance. The spleen, adrenal glands and pancreas are unremarkable. The kidneys demonstrate no acute abnormality. The right ureter is slightly prominent but similar to previous with no distal obstructive process seen and contrast seen along its entire course into the bladder on delayed imaging. There is no free fluid or air in the abdomen. Within the lower abdomen into the pelvis, postoperative changes seen with a suture line in the cecum. There is an enlarged loop of bowel within the right lower quadrant which demonstrates marked wall thickening similar to the prior examination. No adjacent free air or fluid collection to suggest abscess noted. There is minimal free fluid in the pelvis, perhaps physiologic or reactive in nature. There is a cystic lesion in the left adnexa approximately 3.7 cm in greatest dimension. This is unchanged from the prior, likely ovarian in nature. Followup with sonography could be performed to assure resolution and/or stability at a short-term interval as clinically warranted. Within the right lower quadrant multiple prominent lymph nodes are seen which are likely reactive in nature. The osseous structures demonstrate no evidence for acute abnormality. IMPRESSION: 1. Circumferential wall thickening and enhancement in the terminal ileum and distal small bowel loops with minimal adjacent inflammatory change as well as reactive lymphadenopathy suggesting exacerbation of the patient's known Crohn's disease. No free air identified. 2. Stable-appearing cystic lesion, left adnexa. See above discussion. 3. Oval hypodense area noted anterior to the liver and immediately inferior to the ribs measuring almost 16 mm in greatest dimension and is stable from previous imaging. This is of uncertain etiology. It could represent a small hematoma. Abscess is felt to be unlikely given its stability in the last 5 months. A benign cystic lesion is possible, as well. Continued followup of this area would be recommended to exclude an enlarging cystic mass Dictated by: Dictated on workstation # [id number]
[2018-04-03] MEDS ORDERED: POTASSIUM CL 10MEQ/50ML IVPB 50 ML IV ONE (13:00)
[2018-04-03] MEDS ORDERED: ONDANSETRON 4 MG (ZOFRAN) ORAL DISSOLVE TAB PO ONE (13:15)
[2018-04-03] MEDS ORDERED: PRD20T PO (13:52)
[2018-04-03] MEDS ORDERED: ONDA4TAB11 PO (13:52)
[2018-04-03] MEDS ORDERED: PRD10T PO (13:52)
[2018-04-03] MEDS ORDERED: ACHD5005 PO (13:52)
[2018-04-03] MEDS ORDERED: POTA-51 PO (13:53)
[2018-04-03 14:03] VITALS: BP 105/80
== END 2018-04-03 14:03 | disposition home or self-care (01) ==
LOC: EDUNIT# 11:06 → ER 11:09
DX: K50.90 Crohn's disease, unspecified, without complications (principal); K60.2 Anal fissure, unspecified; E87.6 Hypokalemia; E86.0 Dehydration; E03.9 Hypothyroidism, unspecified; F31.9 Bipolar disorder, unspecified; Z98.51 Tubal ligation status; Z88.1 Allergy status to other antibiotic agents; Z88.8 Allergy status to other drugs, medicaments and biological substances; Z87.891 Personal history of nicotine dependence; Z90.49 Acquired absence of other specified parts of digestive tract
CPT/HCPCS: 36415; 74177; 80053; 81000; 83735; 85025; 96361; 96365; 96375

== ENCOUNTER 2018-11-02 11:31 | Emergency (ER) | payer BC, OTHER ==
[~2018-11-02] VITALS: Ht 162.6 cm; Wt 54.4 kg
[~2018-11-02 11:31] MED LIST changes: +HYDR-4226 PO; -HYDR-757 PO; +ONDA4TAB11 PO; +POTA-51 PO; +PRD10T PO
--- NOTE | 2018-11-02 11:33 | NUR ---
ATTEMPT TO CALL PT INTO TRIAGE ET PT WENT OUTSIDE TO GET HER PHONE.
[2018-11-02] MEDS ORDERED: ACETAMINOPHEN 325 MG TABLET PO STA (12:12)
[2018-11-02] MEDS ORDERED: TETANUS,DIPTH,PERTUSS P/F (BOOSTRIX) 0.5 ML VIAL IM STA (12:12)
[2018-11-02] MEDS ORDERED: CYCLOBENZAPRINE 10 MG (FLEXERIL) TAB PO STA (12:12)
--- NOTE | 2018-11-02 12:23 | ED Fall/Injury ---
General Chief Complaint: Trauma-Non Activation Stated Complaint: FALL Nursing Triage Note: PT SLIPPED ON ICE FALLING DOWN X6 STARIS CAUSING PAIN IN HER NECK AND PAIN IN TAIL BONE. HAS NOT TAKEN ANY MEDICATIONS FOR THE PAIN. History of Present Illness Date Seen by Provider: Nov 02, 2018 Time Seen by Provider: 12:05 Initial Comments 37 year old female reports that she was going down her stairs on the back of her house when she slipped on the ice causing her to fall and slide down approximately 6 stairs on her tailbone. She was trying to also catch her 10-year -old son who slipped and is unsure if she hit her head. She also has neck pain. She has not taken any medication prior to arrival. She was able to drive her to work but pain seems to be worsening. She is currently in a c-collar. She denies any paresthesias or radicular symptoms in her upper or lower extremities. She's had no previous neck or back problems. She denies a loss of consciousness, she has a mild headache since the incident, no nausea, vomiting, or seizure activity. Superficial abrasion above her right eyebrow. Occurred: this morning Injuries/Pain Location: head, neck, pelvis Context: slipped (ice) Loss of Consciousness: no loss of consciousness Associated Symptoms (Fall): Denies Symptoms Allergies and Home Medications Allergies Coded Allergies: vancomycin (Unverified Allergy, Severe, 05/11/10) metoclopramide (Unverified Adverse Reaction, Intermediate, 05/11/10) Uncoded Allergies: DARVOCET (Allergy, Intermediate, 05/11/10) Home Medications Cyclobenzaprine HCl 10 Mg Tablet, 10 MG PO Q8H Prescribed by: MIKE VERDUGO on 11/02/18 1304 Tramadol HCl 50 Mg Tablet, 50 MG PO Q8H Prescribed by: MIKE VERDUGO on 11/02/18 1304 Patient Home Medication List Home Medication List Reviewed: Yes Review of Systems Review of Systems Constitutional: no symptoms reported, see HPI Musculoskeletal: see HPI, back pain (coccyx), neck pain All Other Systems Reviewed Negative Unless Noted: Yes Past Udahowb-Ogyqtl-Okbmap Hx Past Med/Social Hx: Reviewed Nursing Past Med/Soc Hx Patient Social History Alcohol Use: Denies Use Recreational Drug Use: No Smoking Status: Current Everyday Smoker Type Used: Cigarettes Former Smoker, Quit: Feb 25, 2018 2nd Hand Smoke Exposure: Yes Recent Foreign Travel: No Contact w/Someone Who Travel: No Recent Infectious Disease Expo: No Recent Hopitalizations: No Immunizations Up To Date Tetanus Booster (TDap): Unknown Seasonal Allergies Seasonal Allergies: No Past Medical History Surgeries: Yes (SMALL BOWEL RESECTION FOR CROHN'S ) Abdominal, Bowel Surgery, Gallbladder, Tubal Ligation, Valve Replacement Respiratory: No Cardiac: No Neurological: No : No 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 Disorders: No 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 oz. 54.614309yj; 21.79 BMI Method:Stated General Appearance: WD/WN, no apparent distress HEENT: PERRL/EOMI, normal ENT inspection, TMs normal, pharynx normal Neck: normal inspection, limited range of motion (secondary to c-collar), tender lateral, tender midline Cardiovascular: normal peripheral pulses, regular rate, rhythm, no murmur Respiratory: chest non-tender, lungs clear, normal breath sounds Gastrointestinal: normal bowel sounds, non tender, soft Neurologic/Psychiatric: option trader II-XII nml as tested (grossly intact), no motor/ sensory deficits, alert, normal mood/affect, oriented x 3 Skin: normal color, warm/dry Lymphatic: no adenopathy Corwin Coma Score Best Eye Response: (4) Open Spontaneously Best Verbal Response: (5) Oriented Best Motor Response: (6) Obeys Commands Corwin Total: 15 Progress/Results/Core Measures Results/Orders My Orders Orders - MIKE VERDUGO Ct Head/Cervical Spine Wo (11/02/18 12:12) Pelvis (11/02/18 12:12) Sacrum And Coccyx (11/02/18 12:12) Acetaminophen Tablet/Caplet (Tylenol T (11/02/18 12:12) Cyclobenzaprine Tablet (Flexeril Tablet) (11/02/18 12:12) Dipht,Pertuss(Acell),Tet Adult (Boostrix (11/02/18 12:12) Vital Signs/I&O 11/02/18 11/02/18 11:42 13:17 Temp 98.3 Pulse 99 71 Resp 16 16 B/P (MAP) 123/75 (91) 105/53 (70) Pulse Ox 98 98 O2 Delivery Room Air Blood Pressure Mean: 91 Progress Progress Note : Time: 12:05 Progress Note Patient seen and evaluated will maintain c-collar. We'll obtain CT of head and neck. X-ray of the pelvis and sacrum/coccyx. Tylenol 650 mg orally for pain and Flexeril 10 mg orally for muscle spasms. Tetanus booster for abrasion to right for head. 1252 CT head and neck negative, C-collar removed. Patient had trace limitation of motion secondary to pain and points. No paresthesias or radicular symptoms with cervical range of motion. Her neurovascular status remained intact bilaterally, upper and lower extremities. She reports mild pain through the cervical spine and trapezius muscles bilaterally. She reports decreased pain and muscle spasms since her medication. 1300 discharge instructions and return precautions reviewed with the patient. All questions answered. Diagnostic Imaging Diagonstic Imaging: CT Plain Films/CT/US/NM/MRI: c-spine, head Comments NAME: ELLIS GANT [facility] REC#: [id number] PT STATUS: REG ER : 1980 PHYSICIAN: MIKE VERDUGO ADMIT DATE: 11/02/18/ER Draft Date of Exam:11/02/18 CT HEAD/CERVICAL SPINE WO PROCEDURE: CT head and CT cervical spine without contrast. TECHNIQUE: Multiple contiguous axial images were obtained through the brain and cervical spine without the use of intravenous contrast. Sagittal and coronal reformations through the cervical spine were then performed. INDICATION: Fall on ice, striking the head. FINDINGS: There is no intracranial hemorrhage. There is no hydrocephalus, edema, mass, or mass effect. No calvarial fracture deformity apparent. No hemo-sinus. The orbits are unremarkable. Basilar cisterns are patent. There is no sulcal effacement. No mass. CT cervical spine: There is straightening of cervical curvature without dislocation or jeannie listhesis. Degenerative changes to the discs, endplates, and facets, greatest at the C4-C5, C5-C6, and C6-C7 levels where there is unfa-xp-fgxqiqqh canal and mild biforaminal stenoses. No high-grade stenosis. No fracture. No paravertebral hemorrhage. The bony skull base appeared intact. IMPRESSION: 1. CT head: No hemorrhage, fracture, or acute finding. 2. CT cervical spine: Degenerative changes without fracture, high-grade stenosis, or traumatic malalignment. Dictated on workstation # [id number] Dict: 11/02/18 1236 Trans: 11/02/18 1250 [facility] [phone] Interpreted by: LEIDY PEARSON Electronically signed by: Reviewed: Reviewed by Me Diagonstic Imaging: Xray Plain Films/CT/US/NM/MRI: other (sacrum/coccyx) Comments NAME: ELLIS GANT MED REC#: [id number] PT STATUS: REG ER : 1980 PHYSICIAN: MIKE VERDUGO ADMIT DATE: 11/02/18/ER Draft Date of Exam:11/02/18 SACRUM AND COCCYX INDICATION: Fall with tailbone pain. TIME OF EXAM: 12:36 p.m. FINDINGS: Sacrococcygeal alignment appears normal. No definite fracture is identified. Sacral arcuate lines are intact. SI joints are non-widened. IMPRESSION: No acute bony abnormality is detected. Dictated on workstation # [id number] Dict: 11/02/18 1248 Trans: 11/02/18 1252 [id number] Interpreted by: RUTHIE LOPEZ MD Electronically signed by: Reviewed: Reviewed by Ca Diagonstic Imaging: Xray Plain Films/CT/US/NM/MRI: pelvis Comments NAME: ELLIS GANT MED REC#: [id number] PT STATUS: REG ER : 1980 PHYSICIAN: MIKE VERDUGO ADMIT DATE: 11/02/18/ER Draft Date of Exam:11/02/18 PELVIS INDICATION: Fall. Trauma. COMPARISON: None. FINDINGS: A single AP view of the pelvis was performed. There is no radiographic evidence of acute fracture or dislocation. Pubic symphysis is within normal limits. SI joints are symmetric. Proximal femurs are intact, bilaterally. The femoro-acetabular joint spaces appear maintained on this single frontal view. Remainder of the bony pelvis is intact as well. No unexpected radiopaque foreign bodies are seen. Included small bowel loops are nondistended. IMPRESSION: 1. No radiographic evidence of acute fracture or dislocation of the bony pelvis. Dictated on workstation # [id number] Dict: 11/02/18 1243 Trans: 11/02/18 1259 [id number] Interpreted by: MARYSOL FULLER MD Electronically signed by: Reviewed: Discussed w/Radiologist Departure Impression Primary Impression: Fall Qualified Codes: W19.XXXA - Unspecified fall, initial encounter Additional Impressions: Cervical strain, acute Qualified Codes: S16.1XXA - Strain of muscle, fascia and tendon at neck level , initial encounter Abrasion Contusion of coccyx Qualified Codes: S30.0XXA - Contusion of lower back and pelvis, initial encounter Disposition: HOME, SELF-CARE Condition: Improved Departure-Patient Inst. Decision time for Depature: 12:55 Referrals: BARTOLO CURTIS MD (PCP/Family) Primary Care Physician Patient Instructions: Cervical Muscle Strain (DC), Contusion (DC), Neck Sprain (DC) Add. Discharge Instructions: You may take Tylenol 650 mg alternating with ibuprofen 600 mg every 4 hours for pain. If your pain is not controlled with Tylenol and ibuprofen may take tramadol every 8 hours. Take Flexeril every 8 hours for muscle relaxant. Alternate between heat and ice to your neck and tailbone, 20 minutes every 2 hours as needed. Follow-up with your primary care provider in 2-3 days if symptoms are not improving or worsen. Gentle range of motion to your neck. Progress activity as tolerated. Return to emergency department for new, urgent health care needs. All discharge instructions reviewed with patient and/or family. Voiced understanding. 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 MIKE VERDUGO Nov 02, 2018 12:23
--- NOTE | 2018-11-02 12:50 | Diagnostic Imaging Report ---
PROCEDURE: CT head and CT cervical spine without contrast. TECHNIQUE: Multiple contiguous axial images were obtained through the brain and cervical spine without the use of intravenous contrast. Sagittal and coronal reformations through the cervical spine were then performed. INDICATION: Fall on ice, striking the head. FINDINGS: There is no intracranial hemorrhage. There is no hydrocephalus, edema, mass, or mass effect. No calvarial fracture deformity apparent. No hemo-sinus. The orbits are unremarkable. Basilar cisterns are patent. There is no sulcal effacement. No mass. CT cervical spine: There is straightening of cervical curvature without dislocation or jeannie listhesis. Degenerative changes to the discs, endplates, and facets, greatest at the C4-C5, C5-C6, and C6-C7 levels where there is dbys-ye-dsrzpniw canal and mild biforaminal stenoses. No high-grade stenosis. No fracture. No paravertebral hemorrhage. The bony skull base appeared intact. IMPRESSION: 1. CT head: No hemorrhage, fracture, or acute finding. 2. CT cervical spine: Degenerative changes without fracture, high-grade stenosis, or traumatic malalignment. Dictated by: Dictated on workstation # [id number]
--- NOTE | 2018-11-02 12:53 | Diagnostic Imaging Report ---
INDICATION: Fall with tailbone pain. TIME OF EXAM: 12:36 p.m. FINDINGS: Sacrococcygeal alignment appears normal. No definite fracture is identified. Sacral arcuate lines are intact. SI joints are non-widened. IMPRESSION: No acute bony abnormality is detected. Dictated by: Dictated on workstation # [id number]
--- NOTE | 2018-11-02 12:59 | Diagnostic Imaging Report ---
INDICATION: Fall. Trauma. COMPARISON: None. FINDINGS: A single AP view of the pelvis was performed. There is no radiographic evidence of acute fracture or dislocation. Pubic symphysis is within normal limits. SI joints are symmetric. Proximal femurs are intact, bilaterally. The femoro-acetabular joint spaces appear maintained on this single frontal view. Remainder of the bony pelvis is intact as well. No unexpected radiopaque foreign bodies are seen. Included small bowel loops are nondistended. IMPRESSION: 1. No radiographic evidence of acute fracture or dislocation of the bony pelvis. Dictated by: Dictated on workstation # [id number]
[2018-11-02] MEDS ORDERED: CYCL10TA9 PO (13:04)
[2018-11-02] MEDS ORDERED: TRAM50TA2 PO (13:04)
[2018-11-02 13:17] VITALS: BP 105/53
== END 2018-11-02 13:17 | disposition home or self-care (01) ==
LOC: EDUNIT# 11:31 → ER 11:33
DX: S16.1XXA Strain of muscle, fascia and tendon at neck level, initial encounter (principal); S30.0XXA Contusion of lower back and pelvis, initial encounter; S00.81XA Abrasion of other part of head, initial encounter; E03.9 Hypothyroidism, unspecified; F31.9 Bipolar disorder, unspecified; R40.2142 Coma scale, eyes open, spontaneous, at arrival to emergency department; R40.2252 Coma scale, best verbal response, oriented, at arrival to emergency department; R40.2362 Coma scale, best motor response, obeys commands, at arrival to emergency department; Z23 Encounter for immunization; Z87.891 Personal history of nicotine dependence; Z87.19 Personal history of other diseases of the digestive system; Z98.51 Tubal ligation status; Z95.0 Presence of cardiac pacemaker; Z98.890 Other specified postprocedural states; Z88.1 Allergy status to other antibiotic agents; Z88.8 Allergy status to other drugs, medicaments and biological substances; W00.1XXA Fall from stairs and steps due to ice and snow, initial encounter; Y92.009 Unspecified place in unspecified non-institutional (private) residence as the place of occurrence of the external cause
CPT/HCPCS: 70450; 72125; 72170; 72220; 90715

== ENCOUNTER → 2019-07-31 | Outpatient (CLI) | payer BC ==
[~2019-07-31] MED LIST changes: +TRAM50TA2 PO
== END ==
LOC: CARD 08:33
PROVIDERS: ATTEND Nurse Practitioner Family
DX: R01.1 Cardiac murmur, unspecified (principal)
CPT/HCPCS: 93306

== ENCOUNTER 2019-11-12 11:25 | Emergency (ER) | payer BC ==
[~2019-11-12 11:25] MED LIST changes: -TRAM50TA2 PO
== END 2019-11-12 11:39 | disposition left against medical advice (07) ==
LOC: ER 11:25 → EDUNIT# 11:25 → ER 11:39
DX: R05 Cough (principal); R50.9 Fever, unspecified

== ENCOUNTER 2020-01-20 05:00 | Emergency (ER) | payer SELFPAY ==
[~2020-01-20] VITALS: Ht 163 cm; Wt 55.0 kg
[2020-01-20 05:01] VITALS: BP 115/86
[2020-01-20] MEDS ORDERED: ALPR0.5T7 (05:11)
[2020-01-20] MEDS ORDERED: HYDR-3820 (05:11)
[2020-01-20 05:29] LABS: BASOPHILS % (AUTO) 1 % (0-10); EOSINOPHILS # (AUTO) 0.1 10^3/uL (0.0-0.3); EOSINOPHILS % (AUTO) 1 % (0-10); HEMATOCRIT 37 % (35-52); HEMOGLOBIN 12.1 G/DL (11.5-16.0); LYMPHOCYTES # (AUTO) 2.3 X 10^3 (1.0-4.0); LYMPHOCYTES % (AUTO) 45 % (12-44); MEAN CORPUSCULAR HEMOGLOBIN 25 PG (25-34); MEAN CORPUSCULAR HGB CONC 33 G/DL (32-36); MEAN CORPUSCULAR VOLUME 78 FL (80-99); MEAN PLATELET VOLUME 8.8 FL (7.4-10.4); MONOCYTES # (AUTO) 0.4 X 10^3 (0.0-1.0); MONOCYTES % (AUTO) 7 % (0-12); NEUTROPHILS # (AUTO) 2.3 X 10^3 (1.8-7.8); NEUTROPHILS % (AUTO) 46 % (42-75); PLATELET COUNT 368 10^3/uL (130-400); RED CELL DISTRIBUTION WIDTH 16.2 % (10.0-14.5); WHITE BLOOD COUNT 5.1 10^3/uL (4.3-11.0)
--- NOTE | 2020-01-20 05:29 | ED Psychosocial ---
General Chief Complaint: Substance Abuse Stated Complaint: ETOH Nursing Triage Note: BROUGHT IN BY [facility] REPORTS WANTING ASSISSTANCE WITH DETOX. PT REPORTS STOPPING LITHIUM APPROX. 1MTH AGO D/T PALPATATIONS. PT LOST JOB 1 WEEK AGO ET. HAS BEEN DRINKING DLY SINCE D/T DEPRESSION. Source: patient Exam Limitations: no limitations History of Present Illness Date Seen by Provider: Jan 20, 2020 Time Seen by Provider: 05:03 Initial Comments Here by EMS with report of wanting assistance with alcohol and bipolar disorder. Currently she lost her job within the last few weeks. She stopped taking her lithium about a month ago because it was giving her palpitations. She then started drinking to control her bipolar and this has caused problems with her family at home and she lost her job. She denies suicidal ideation but has had suicidal thoughts in the past. Main concern is her bipolar is uncontrolled. Tonight she drank at least a fifth of vodka and took some Xanax of unknown strength and unknown quantity. EMS was summoned and they brought her here. She is drowsy but protecting her airway. She is answering questions but does have slurred speech. Does admit to drinking alcohol and using Xanax and states it was in an effort to control her bipolar and not to harm herself. Apparently things have been difficult at home and her and son are sequestering themselves in a different part of the house due to patient's erratic behavior related to uncontrolled bipolar and alcohol abuse. She reports that she's allegedly drinking heavily for the last week or so although I am unsure if she is long- term alcoholic or not. Timing/Duration: this morning Severity: severe Associated Symptoms: anxiety, impaired concentration Allergies and Home Medications Allergies Coded Allergies: vancomycin (Unverified Allergy, Severe, 05/11/10) metoclopramide (Unverified Adverse Reaction, Intermediate, 05/11/10) Uncoded Allergies: DARVOCET (Allergy, Intermediate, 05/11/10) Home Medications Olanzapine 10 Mg Tablet, 10 MG PO DAILY Prescribed by: IGOR MARIANO on 01/20/201957 Patient Home Medication List Home Medication List Reviewed: Yes Review of Systems Constitutional: see HPI; No chills, No fever EENTM: No nose congestion, No throat pain Respiratory: No cough, No short of breath Cardiovascular: no symptoms reported Gastrointestinal: No abdominal pain, No nausea, No vomiting Genitourinary: no symptoms reported Musculoskeletal: no symptoms reported Skin: no symptoms reported Psychiatric/Neurological: See HPI, Anxiety, Depressed, Emotional Problems All Other Systems Reviewed Negative Unless Noted: Yes Past [employer]-Kpzszr-Xulmfb Hx Past Med/Social Hx: Reviewed Nursing Past Med/Soc Hx Patient Social History Alcohol Use: Regular Use Number of Drinks Today: GG Alcohol Beverage of Choice: Vodka Recreational Drug Use: No Smoking Status: Current Everyday Smoker Type Used: Cigarettes Former Smoker, Quit: Feb 25, 2018 2nd Hand Smoke Exposure: Yes Recent Foreign Travel: No Contact w/Someone Who Travel: No Recent Infectious Disease Expo: No Recent Hopitalizations: No Physical Abuse: No Sexual Abuse: No Mistreated: No Fear: No Immunizations Up To Date Tetanus Booster (TDap): Unknown Seasonal Allergies Seasonal Allergies: No Past Medical History Surgeries: Yes (SMALL BOWEL RESECTION FOR CROHN'S, HEART) Abdominal, Bowel Surgery, Gallbladder, Tubal Ligation, Valve Replacement Respiratory: No Cardiac: No Neurological: No : No 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 Disorders: No 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 oz. 54.103224fk; 20.00 BMI Method:Stated General Appearance: no apparent distress HEENT: PERRL/EOMI, pharynx normal Neck: full range of motion, supple Respiratory: lungs clear, normal breath sounds Cardiovascular: regular rate, rhythm, no murmur Peripheral Pulses: 2+ Dorsalis Pedis (R), 2+ Left Dors-Pedis (L), 2+ Radial Pulses (R), 2+ Radial Pulses (L) Gastrointestinal: non tender, soft Extremities: non-tender, normal inspection Neurologic/Psychiatric: alert, other (slurred speech and somewhat discoordinated movements) Appearance/Memory: disheveled, impaired recent memory Behavior/Eye Contact: decreased rate of speech, other (slurred speech) Thoughts/Hallucinations: no apparent hallucination Skin: normal color, warm/dry Progress/Results/Core Measures Results/Orders My Orders Vital Signs/I&O Blood Pressure Mean: 96 Progress Progress Note : Progress Note Seen and evaluated. IV by EMS labs, UDS and EKG ordered. We will continue IV fluids initiated by EMS 1 L normal saline bolus.Monitor patient. 0540: Patient now sitting up and states that she does not want to be here and she is not stay. She knows where she is at and where she lives. She knows the date and time. She understands her challenges. When I asked her what her plan was, she states that she will call her doctor on Wednesday and get restarted on her medicines for her bipolar disease. She does not want inpatient evaluation and she wants no further evaluation here. I offered her multiple times continuation of care which she has declined. She will sign AMA paperwork. Walking without difficulty. Initial ECG Impression Date: Jan 20, 2020 Initial ECG Impression Time: 05:22 Initial ECG Rate: 76 Initial ECG Rhythm: Normal Sinus Comment Sinus rhythm with normal axis. No evidence of ST elevation MA. Similar to previous of 01/02/18. Interpreted by me. Departure Impression Primary Impression: Alcohol intoxication Qualified Codes: F10.920 - Alcohol use, unspecified with intoxication, uncomplicated Additional Impression: Bipolar disorder with depression Disposition: 07 AGAINST MEDICAL ADVICE Condition: Stable/Unchanged Departure-Patient Inst. Decision time for Depature: 05:42 Referrals: BARTOLO CURTIS MD (PCP/Family) Primary Care Physician Patient Instructions: ALCOHOL AND SUBSTANCE ABUSE, Bipolar Disorder (DC) Add. Discharge Instructions: All discharge instructions reviewed with patient and/or family. Voiced understanding. Return for any concerns. You are signing out AGAINST MEDICAL ADVICE but this does not mean he cannot return for further assistance. Please return if you have any problems. It is very important that he follow up with your doctor on Wednesday for recheck and further evaluation and to restart her bipolar medication. Avoid alcohol and do not take other drugs that are not prescribed to you. Copy Copies To 1: BARTOLO CURTIS MD, TIMOTHY D MD Jan 20, 2020 05:29
--- NOTE | 2020-01-20 05:37 | NUR ---
PT SPEAKING WITH ERP. STATES SHE WANTS TO SIGN OUT AMA.
[2020-01-20 05:42] LABS: CHLORIDE 112 MMOL/L (98-107); POTASSIUM 3.6 MMOL/L (3.6-5.0); SODIUM 144 MMOL/L (135-145)
[2020-01-20 05:43] LABS: ALBUMIN 3.1 GM/DL (3.2-4.5)
[2020-01-20 05:44] LABS: CALCIUM 7.5 MG/DL (8.5-10.1)
[2020-01-20 05:44] LABS: BILIRUBIN,URINE NEGATIVE (NEGATIVE); CLARITY,URINE CLEAR; COLOR,URINE YELLOW; GLUCOSE, URINE (UA) NEGATIVE (NEGATIVE); KETONES,URINE NEGATIVE (NEGATIVE); LEUKOCYTE ESTERASE ,URINE NEGATIVE (NEGATIVE); NITRITE,URINE NEGATIVE (NEGATIVE); PH,URINE 6.5 (5-9); PROTEIN,URINE NEGATIVE (NEGATIVE)
[2020-01-20 05:45] LABS: GLUCOSE 99 MG/DL (70-105); TOTAL PROTEIN 6.1 GM/DL (6.4-8.2)
--- NOTE | 2020-01-20 05:45 | NUR ---
PT'S CALLED ET. INFORMED THAT PT WANTED TO LEAVE HOSPITAL.
[2020-01-20 05:46] LABS: CARBON DIOXIDE 20 MMOL/L (21-32)
[2020-01-20 05:47] LABS: BILIRUBIN,TOTAL 0.3 MG/DL (0.1-1.0)
[2020-01-20 05:49] LABS: ALKALINE PHOSPHATASE 53 U/L (40-136); CREATININE SERUM 0.67 MG/DL (0.60-1.30); GFR ESTIMATED > 60
[2020-01-20 05:50] LABS: BUN/CREATININE RATIO 7
[2020-01-20 05:52] LABS: ALANINE AMINOTRANSFERASE 10 U/L (0-55); SALICYLATE < 5.0 MG/DL (5.0-20.0)
[2020-01-20 05:55] LABS: BACTERIA,URINE NEGATIVE /HPF; SQUAMOUS EPITHELIAL CELL,UR 0-2 /HPF
[2020-01-20 05:57] LABS: AMPHETAMINE SCREEN, URINE NEGATIVE (NEGATIVE); BARBITURATE SCREEN URINE NEGATIVE (NEGATIVE); BENZODIAZEPINES SCREEN URINE NEGATIVE (NEGATIVE); CANNABINOID SCREEN, URINE NEGATIVE (NEGATIVE); COCAINE SCREEN URINE NEGATIVE (NEGATIVE); METHADONE STAT NEGATIVE (NEGATIVE); METHAMPHETAMINE SCREEN URINE S NEGATIVE (NEGATIVE); OPIATE SCREEN URINE NEGATIVE (NEGATIVE); OXYCODONE STAT NEGATIVE (NEGATIVE); PROPOXYPHENE STAT NEGATIVE (NEGATIVE); TRICYCLIC ANTIDEPRESSANTS SCRE NEGATIVE (NEGATIVE)
[2020-01-20 05:59] LABS: ACETAMINOPHEN < 10 UG/ML (10-30)
[2020-01-20 06:12] LABS: TSH (THYROID ANALYZER) 1.24 UIU/ML (0.35-4.94)
[2020-01-20] MEDS ORDERED: OLAN10TA3 PO (19:58)
== END 2020-01-20 05:51 | disposition left against medical advice (07) ==
LOC: EDUNIT# 05:00 → ER 05:02
DX: F10.129 Alcohol abuse with intoxication, unspecified (principal); F31.9 Bipolar disorder, unspecified; F17.210 Nicotine dependence, cigarettes, uncomplicated; Z88.1 Allergy status to other antibiotic agents; Z88.8 Allergy status to other drugs, medicaments and biological substances
CPT/HCPCS: 36415; 80053; 80306; 80320; 80329; 81000; 84443; 84703; 85025; 93005; 93041

== ENCOUNTER 2020-01-20 18:42 | Emergency (ER) | payer SELFPAY ==
[~2020-01-20] VITALS: Ht 167.5 cm; Wt 49.8 kg
[~2020-01-20 18:42] MED LIST changes: +ALPR0.5T7; +HYDR-3820
--- NOTE | 2020-01-20 18:56 | ED Psychosocial ---
General Chief Complaint: Psych/Social Disorder Stated Complaint: BIPOLAR, INTOXICATED, Nursing Triage Note: Pt to ED via EMS. Pt reports having bipolar. Pt has not taken lithium for several months. Pt reports being on four day vodka driking binge. Pt reports hearing voices this morning. Source: patient Exam Limitations: no limitations History of Present Illness Date Seen by Provider: Jan 20, 2020 Time Seen by Provider: 18:56 Initial Comments To ER by EMS with reports of "bipolar disorder and can't stop drinking". She's been drinking a lot of hard liquor over the past 4 days. She hasn't been taking her lithium for bipolar disorder in the past several months. She denies suicidal thoughts. She was formerly employed at [employer] that has, but has been low since cyst for the past 2-3 weeks. Timing/Duration: constant Severity: moderate Associated Symptoms: anxiety Allergies and Home Medications Allergies Coded Allergies: vancomycin (Unverified Allergy, Severe, 05/11/10) metoclopramide (Unverified Adverse Reaction, Intermediate, 05/11/10) Uncoded Allergies: DARVOCET (Allergy, Intermediate, 05/11/10) Home Medications Olanzapine 10 Mg Tablet, 10 MG PO DAILY Prescribed by: IGOR MARIANO on 01/20/201957 Patient Home Medication List Home Medication List Reviewed: Yes Review of Systems Constitutional: see HPI EENTM: see HPI Respiratory: no symptoms reported Cardiovascular: no symptoms reported Musculoskeletal: see HPI Skin: see HPI Psychiatric/Neurological: See HPI, Anxiety Past Ymwirac-Mfzdtv-Oatcak Hx Patient Social History Alcohol Beverage of Choice: Vodka Type Used: Cigarettes Former Smoker, Quit: Feb 25, 2018 2nd Hand Smoke Exposure: Yes Recent Foreign Travel: No Contact w/Someone Who Travel: No Recent Infectious Disease Expo: No Recent Hopitalizations: No Immunizations Up To Date Tetanus Booster (TDap): Unknown Seasonal Allergies Seasonal Allergies: No Past Medical History Surgeries: Yes (SMALL BOWEL RESECTION FOR CROHN'S, HEART) Abdominal, Bowel Surgery, Gallbladder, Tubal Ligation, Valve Replacement Respiratory: No Cardiac: No Neurological: No 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 oz. 54.157427uo; 17.00 BMI Method:Stated General Appearance: WD/WN, no apparent distress Neck: non-tender, full range of motion Respiratory: no respiratory distress, no accessory muscle use Gastrointestinal: normal bowel sounds, soft Neurologic/Psychiatric: alert, normal mood/affect, oriented x 3 Appearance/Memory: appropriate insight, disheveled Behavior/Eye Contact: cooperative, good eye contact Thoughts/Hallucinations: normal thought pattern, no apparent hallucination Skin: normal color, warm/dry Progress/Results/Core Measures Results/Orders Lab Results Laboratory Tests Test 01/20/20 18:51 01/20/20 19:32 Range/Units White Blood Count 5.3 4.3-11.0 10^3/uL Red Blood Count 4.96 4.35-5.85 10^6/uL Hemoglobin 12.8 11.5-16.0 G/DL Hematocrit 39 35-52 % Mean Corpuscular Volume 78 L 80-99 FL Mean Corpuscular Hemoglobin 26 25-34 PG Mean Corpuscular Hemoglobin Concent 33 32-36 G/DL Red Cell Distribution Width 16.6 H 10.0-14.5 % Platelet Count 407 H 130-400 10^3/uL Mean Platelet Volume 8.5 7.4-10.4 FL Neutrophils (%) (Auto) 59 42-75 % Lymphocytes (%) (Auto) 33 12-44 % Monocytes (%) (Auto) 7 0-12 % Eosinophils (%) (Auto) 1 0-10 % Basophils (%) (Auto) 1 0-10 % Neutrophils # (Auto) 3.1 1.8-7.8 X 10^3 Lymphocytes # (Auto) 1.7 1.0-4.0 X 10^3 Monocytes # (Auto) 0.4 0.0-1.0 X 10^3 Eosinophils # (Auto) 0.0 0.0-0.3 10^3/uL Basophils # (Auto) 0.0 0.0-0.1 10^3/uL Prothrombin Time 13.7 12.2-14.7 SEC INR Comment 1.0 0.8-1.4 Sodium Level 143 135-145 MMOL/L Potassium Level 3.5 L 3.6-5.0 MMOL/L Chloride Level 109 H 98-107 MMOL/L Carbon Dioxide Level 21 21-32 MMOL/L Anion Gap 13 5-14 MMOL/L Blood Urea Nitrogen 6 L 7-18 MG/DL Creatinine 0.81 0.60-1.30 MG/DL Estimat Glomerular Filtration Rate > 60 BUN/Creatinine Ratio 7 Glucose Level 107 H 70-105 MG/DL Calcium Level 7.7 L 8.5-10.1 MG/DL Corrected Calcium 8.3 L 8.5-10.1 MG/DL Total Bilirubin 0.3 0.1-1.0 MG/DL Aspartate Amino Transf (AST/SGOT) 22 5-34 U/L Alanine Aminotransferase (ALT/SGPT) 13 0-55 U/L Alkaline Phosphatase 57 40-136 U/L Total Protein 6.3 L 6.4-8.2 GM/DL Albumin 3.3 3.2-4.5 GM/DL Serum Alcohol 268 H <10 MG/DL My Orders Orders - IGOR MARIANO APRN Cbc With Automated Diff (01/20/20 18:48) Comprehensive Metabolic Panel (01/20/20 18:48) Ua Culture If Indicated (01/20/20 18:48) Alcohol (01/20/20 18:48) Salicylate (01/20/20 18:48) Acetaminophen (01/20/20 18:48) Protime With Inr (01/20/20 18:48) Olanzapine Orally Dissolve Tab (Zyprexa (01/20/20 19:00) Urinalysis (01/20/20 18:48) Drug Screen Urine Cl(Send Out) (01/20/20 19:43) Drug Screen Stat (Urine) (01/20/20 19:49) Medications Given in ED Current Medications Medications Dose Ordered Sig/Amaris Route Start Time Stop Time Status Last Admin Dose Admin Olanzapine 5 mg ONCE ONCE PO 01/20/20 19:00 01/20/20 19:01 DC 01/20/20 18:54 5 MG Vital Signs/I&O 01/20/20 18:45 Temp 37.4 Pulse 89 Resp 17 B/P (MAP) 145/137 (140) Pulse Ox 98 O2 Delivery Room Air Blood Pressure Mean: 140 Departure Communication (Admissions) 1958-states "I don't know what you gave me that it snapped me right out of it" she states she feels much better and would like a prescription for this, ready to go home. Impression Primary Impression: Bipolar disorder Qualified Codes: F31.60 - Bipolar disorder, current episode mixed, u nspecified Disposition: 01 HOME, SELF-CARE Condition: Stable Departure-Patient Inst. Decision time for Depature: 19:55 Referrals: BARTOLO CURTIS MD (PCP/Family) Primary Care Physician Patient Instructions: Bipolar Disorder (DC) Add. Discharge Instructions: 1. Medication as directed 2. Return here for any concerns 3. All discharge instructions reviewed with patient and/or family. Voiced understanding. Scripts Olanzapine (Zyprexa) 10 Mg Tablet 10 MG PO DAILY, #30 TAB Prov: IGOR MARIANO ROUTER OPERATOR 01/20/20 IGOR MARIANO APRN Jan 20, 2020 18:56
[2020-01-20 18:58] LABS: BASOPHILS % (AUTO) 1 % (0-10); EOSINOPHILS % (AUTO) 1 % (0-10); HEMATOCRIT 39 % (35-52); HEMOGLOBIN 12.8 G/DL (11.5-16.0); LYMPHOCYTES # (AUTO) 1.7 X 10^3 (1.0-4.0); LYMPHOCYTES % (AUTO) 33 % (12-44); MEAN CORPUSCULAR HEMOGLOBIN 26 PG (25-34); MEAN CORPUSCULAR HGB CONC 33 G/DL (32-36); MEAN CORPUSCULAR VOLUME 78 FL (80-99); MEAN PLATELET VOLUME 8.5 FL (7.4-10.4); MONOCYTES # (AUTO) 0.4 X 10^3 (0.0-1.0); MONOCYTES % (AUTO) 7 % (0-12); NEUTROPHILS # (AUTO) 3.1 X 10^3 (1.8-7.8); NEUTROPHILS % (AUTO) 59 % (42-75); PLATELET COUNT 407 10^3/uL (130-400); RED CELL DISTRIBUTION WIDTH 16.6 % (10.0-14.5); WHITE BLOOD COUNT 5.3 10^3/uL (4.3-11.0)
[2020-01-20] MEDS ORDERED: OLANZapine 5 MG ODT (ZyPREXA ZYDIS) PO ONE (19:00)
--- NOTE | 2020-01-20 19:02 | NUR ---
report given to BAY Eisenberg to assume care of pt at this time.
[2020-01-20 19:09] LABS: PROTHROMBIN TIME PATIENT 13.7 SEC (12.2-14.7)
[2020-01-20 19:10] LABS: ALBUMIN 3.3 GM/DL (3.2-4.5); CHLORIDE 109 MMOL/L (98-107); POTASSIUM 3.5 MMOL/L (3.6-5.0); SODIUM 143 MMOL/L (135-145)
[2020-01-20 19:11] LABS: CALCIUM 7.7 MG/DL (8.5-10.1)
[2020-01-20 19:12] LABS: GLUCOSE 107 MG/DL (70-105)
[2020-01-20 19:13] LABS: CARBON DIOXIDE 21 MMOL/L (21-32); TOTAL PROTEIN 6.3 GM/DL (6.4-8.2)
[2020-01-20 19:14] LABS: BILIRUBIN,TOTAL 0.3 MG/DL (0.1-1.0)
[2020-01-20 19:16] LABS: ALKALINE PHOSPHATASE 57 U/L (40-136); CREATININE SERUM 0.81 MG/DL (0.60-1.30); GFR ESTIMATED > 60
[2020-01-20 19:17] LABS: BUN/CREATININE RATIO 7
[2020-01-20 19:19] LABS: ALANINE AMINOTRANSFERASE 13 U/L (0-55); SALICYLATE < 5.0 MG/DL (5.0-20.0)
[2020-01-20 19:48] LABS: BILIRUBIN,URINE NEGATIVE (NEGATIVE); CLARITY,URINE CLEAR; COLOR,URINE YELLOW; GLUCOSE, URINE (UA) NEGATIVE (NEGATIVE); KETONES,URINE NEGATIVE (NEGATIVE); LEUKOCYTE ESTERASE ,URINE NEGATIVE (NEGATIVE); NITRITE,URINE NEGATIVE (NEGATIVE); PROTEIN,URINE NEGATIVE (NEGATIVE)
[2020-01-20 19:58] LABS: BACTERIA,URINE TRACE /HPF; RBC,URINE 50-100 /HPF; WBC,URINE 0-2 /HPF
[2020-01-20] MEDS ORDERED: OLAN10TA3 PO (19:58)
[2020-01-20 20:02] LABS: AMPHETAMINE SCREEN, URINE NEGATIVE (NEGATIVE); BARBITURATE SCREEN URINE NEGATIVE (NEGATIVE); BENZODIAZEPINES SCREEN URINE POSITIVE (NEGATIVE); CANNABINOID SCREEN, URINE NEGATIVE (NEGATIVE); COCAINE SCREEN URINE NEGATIVE (NEGATIVE); METHADONE STAT NEGATIVE (NEGATIVE); METHAMPHETAMINE SCREEN URINE S NEGATIVE (NEGATIVE); OPIATE SCREEN URINE NEGATIVE (NEGATIVE); OXYCODONE STAT NEGATIVE (NEGATIVE); PROPOXYPHENE STAT NEGATIVE (NEGATIVE); TRICYCLIC ANTIDEPRESSANTS SCRE NEGATIVE (NEGATIVE)
[2020-01-20 20:10] LABS: ACETAMINOPHEN < 10 UG/ML (10-30)
[2020-01-20 20:11] VITALS: BP 135/99
== END 2020-01-20 20:12 | disposition home or self-care (01) ==
LOC: EDUNIT# 18:42 → ER 18:46
DX: F31.9 Bipolar disorder, unspecified (principal); Z88.1 Allergy status to other antibiotic agents; Z88.8 Allergy status to other drugs, medicaments and biological substances; Z87.891 Personal history of nicotine dependence; Z77.22 Contact with and (suspected) exposure to environmental tobacco smoke (acute) (chronic)
CPT/HCPCS: 36415; 80053; 80306; 80320; 80329; 81000; 85025; 85610; 99283

== ENCOUNTER 2020-07-14 23:50 | Observation (INO) | payer BC ==
[~2020-07-14] VITALS: Ht 170 cm; Wt 56.6 kg
[~2020-07-14 23:50] MED LIST changes: +OLAN10TA3 PO
--- NOTE | 2020-07-14 23:50 | NUR ---
PT CHANGED INTO GOWN WITH VERY LITTLE ASSISTANCE FROM PT. CLOTHING, NECKLACE, AND 2 RINGS PLACED IN BELONGINGS BAG AND PLACED BEHIND "GARAGE STYLE" DOOR IN ROOM 8. ALL ITEMS REMOVED FROM ROOM AND UTILIZED SUICIDE PRECAUTION ROOM PT HAD STATED PREVIOUSLY TO DAUGHTER SUICIDIAL IDEATION. AT THIS TIME PT IS LAYING IN BED WITH EYES CLOSED. ONLY RESPONDS TO REPEATEDLY VERBAL STIMULI OR PAINFUL STIMULI. VSS.
[2020-07-14] MEDS ORDERED: LACTATED RINGERS 1,000 ML IV ONE (23:56)
--- NOTE | 2020-07-15 00:32 | NUR ---
RAPID COVID SWAB COLLECTED AT THIS TIME FOR FUTURE SCREENING PURPOSES FOR MENTAL HEALTH INPATIENT PLACEMENT.
[2020-07-15 00:34] LABS: BASOPHILS % (AUTO) 0 % (0-10); EOSINOPHILS # (AUTO) 0.1 10^3/uL (0.0-0.3); EOSINOPHILS % (AUTO) 2 % (0-10); HEMATOCRIT 36 % (35-52); HEMOGLOBIN 11.5 g/dL (11.5-16.0); LYMPHOCYTES # (AUTO) 2.4 10^3/uL (1.0-4.0); LYMPHOCYTES % (AUTO) 34 % (12-44); MEAN CORPUSCULAR HEMOGLOBIN 26 pg (25-34); MEAN CORPUSCULAR HGB CONC 32 g/dL (32-36); MEAN CORPUSCULAR VOLUME 82 fL (80-99); MEAN PLATELET VOLUME 9.5 fL (9.0-12.2); MONOCYTES # (AUTO) 0.4 10^3/uL (0.0-1.0); MONOCYTES % (AUTO) 6 % (0-12); NEUTROPHILS # (AUTO) 4.1 10^3/uL (1.8-7.8); NEUTROPHILS % (AUTO) 58 % (42-75); PLATELET COUNT 342 10^3/uL (130-400); WHITE BLOOD COUNT 7.1 10^3/uL (4.3-11.0)
[2020-07-15 00:46] LABS: ALBUMIN 3.6 GM/DL (3.2-4.5); CHLORIDE 106 MMOL/L (98-107); POTASSIUM 3.8 MMOL/L (3.6-5.0); SODIUM 144 MMOL/L (135-145)
[2020-07-15 00:48] LABS: AMYLASE 68 U/L (25-125); CALCIUM 8.3 MG/DL (8.5-10.1)
[2020-07-15 00:49] LABS: GLUCOSE 101 MG/DL (70-105); TOTAL PROTEIN 6.4 GM/DL (6.4-8.2)
[2020-07-15 00:50] LABS: CARBON DIOXIDE 25 MMOL/L (21-32)
[2020-07-15 00:51] LABS: BILIRUBIN,TOTAL 0.2 MG/DL (0.1-1.0)
[2020-07-15 00:51] LABS: BILIRUBIN,URINE NEGATIVE (NEGATIVE); CLARITY,URINE CLEAR; COLOR,URINE YELLOW; GLUCOSE, URINE (UA) NEGATIVE (NEGATIVE); KETONES,URINE NEGATIVE (NEGATIVE); LEUKOCYTE ESTERASE ,URINE NEGATIVE (NEGATIVE); NITRITE,URINE NEGATIVE (NEGATIVE); PROTEIN,URINE NEGATIVE (NEGATIVE)
[2020-07-15 00:52] LABS: ALKALINE PHOSPHATASE 58 U/L (40-136)
[2020-07-15 00:53] LABS: CREATININE SERUM 0.68 MG/DL (0.60-1.30); GFR ESTIMATED > 60
[2020-07-15 00:54] LABS: BUN/CREATININE RATIO 10
[2020-07-15 00:55] LABS: ALANINE AMINOTRANSFERASE 13 U/L (0-55)
[2020-07-15 00:56] LABS: BACTERIA,URINE NEGATIVE /HPF
[2020-07-15 00:56] LABS: MAGNESIUM 1.9 MG/DL (1.6-2.4)
[2020-07-15 00:57] LABS: LIPASE 22 U/L (8-78)
[2020-07-15 01:01] LABS: ACETAMINOPHEN < 10 UG/ML (10-30)
[2020-07-15 01:07] LABS: AMPHETAMINE SCREEN, URINE NEGATIVE (NEGATIVE); BARBITURATE SCREEN URINE NEGATIVE (NEGATIVE); BENZODIAZEPINES SCREEN URINE NEGATIVE (NEGATIVE); CANNABINOID SCREEN, URINE NEGATIVE (NEGATIVE); COCAINE SCREEN URINE NEGATIVE (NEGATIVE); METHADONE STAT NEGATIVE (NEGATIVE); METHAMPHETAMINE SCREEN URINE S NEGATIVE (NEGATIVE); OPIATE SCREEN URINE NEGATIVE (NEGATIVE); OXYCODONE STAT NEGATIVE (NEGATIVE); PROPOXYPHENE STAT NEGATIVE (NEGATIVE); TRICYCLIC ANTIDEPRESSANTS SCRE NEGATIVE (NEGATIVE)
--- NOTE | 2020-07-15 01:20 | ED Psychosocial ---
General Chief Complaint: Substance Abuse Stated Complaint: DRUNK/SUICIDAL Nursing Triage Note: TO ED VIA [facility] TO ROOM 8. PER EMS PATIENT'S DAUGHTER STATES SHE DRANK TONIGHT AND WANTED HELP FOR SUICIDAL IDEATION. UPON ARRIVAL PT HAS EYES CLOSED. WILL OPEN EYES WITH REPEATED VERBAL STIMULI AND REACTS TO PAINFUL STIMULI. PT DOES NOT ANSWER QUESTIONS. PAST MEDICAL HX RECALLED FROM PREVIOUS VISITS. Source: EMS, old records (ALL PMH IS FROM OLD RECORDS. ) Exam Limitations: intoxication (PT IS NOT TALKING, AND IS VERY INTOXICATED ON ARRIVAL.) History of Present Illness Date Seen by Provider: Jul 14, 2020 Time Seen by Provider: 23:53 Initial Comments PT ARRIVES VIA EMS FROM HOME POLICE HAVE BEEN AT HOME, AND EMS WAS CALLED TO HOME A COUPLE OF HOURS AGO WELL FOR THIS SAME COMPLAINT PT REPORTEDLY MADE SOME SUICIDAL COMMENTS TO DAUGHTER, WHO THEN CALLED POLICE, WHO CALLED EMS. PER OLD RECORDS, POLICE ARE VERY FAMILIAR WITH PT PT HAS LONG HISTORY OF ALCOHOL ABUSE, AND PT IS INTOXICATED AND HAS HAD UNKNOWN AMOUNT OF UNKNOWN ALCOHOL TONIGHT NO OTHER INFORMATION IS OBTAINABLE AT THIS TIME PER OLD RECORDS, PT HAS A VERY LONG HISTORY OF EXTREME NON-COMPLIANCE IN ALL ASPECTS OF CARE. PT HAS HAD MULTIPLE VISITS FOR ALCOHOL INTOXICATION AND NOT TAKING HER PSYCH MEDICATIONS PCP: [facility], PER OLD RECORDS [facility]ST. Allergies and Home Medications Allergies Coded Allergies: vancomycin (Unverified Allergy, Severe, 05/11/10) metoclopramide (Unverified Adverse Reaction, Intermediate, 05/11/10) Uncoded Allergies: DARVOCET (Allergy, Intermediate, 05/11/10) Home Medications Olanzapine 10 Mg Tablet, 10 MG PO DAILY Prescribed by: IGOR MARIANO on 01/20/201957 Patient Home Medication List Home Medication List Reviewed: Yes Review of Systems Constitutional: other (UNABLE TO OBTAIN) Past Otugvet-Mwmyki-Cwrzol Hx Past Med/Social Hx: Reviewed and Corrections made Patient Social History Alcohol Use: Regular Use Number of Drinks Today: FF Alcohol Beverage of Choice: Vodka Recreational Drug Use: No Drug of Choice: UNKNOWN R/T ETOH INTOXICATION Smoking Status: Current Everyday Smoker Type Used: Cigarettes, Electronic/Vapor 2nd Hand Smoke Exposure: Yes Recent Foreign Travel: No Contact w/Someone Who Travel: No Recent Hopitalizations: No Immunizations Up To Date Tetanus Booster (TDap): Unknown Seasonal Allergies Seasonal Allergies: No Past Medical History Surgeries: Yes (SMALL BOWEL RESECTION FOR CROHN'S, HEART) Abdominal, Bowel Surgery, Gallbladder, Tubal Ligation Respiratory: No Cardiac: No Neurological: No 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 Physical Exam Vital Signs - First Documented 07/14/20 23:50 Temp 35.7 Pulse 74 Resp 14 B/P (MAP) 106/68 (81) O2 Delivery Room Air Capillary Refill : Less Than 3 Seconds Height, Weight, BMI Height: 5'4.00" Weight: 120lbs. oz. 54.643912vq; 19.00 BMI Method:Stated General Appearance: thin, other (STRONG ODOR OF ETOH. PT APPEARS INTOXICATED. PT LETHARGIC, SLEEPING BUT EASILY AWAKENED TO VOICE AND TACTILE STIMULI. NO SNORING. PT IS NOT TALKING OTHER THAN SHE IS BARELY ABLE TO STATE HER NAME, OTHERWISE DOES NOT TALK AT ALL. PT ABLE TO FOLLOW A FEW VERY SIMPLE COMMANDS. ) HEENT: PERRL/EOMI Neck: normal inspection Respiratory: normal breath sounds, no respiratory distress, no accessory muscle use Cardiovascular: regular rate, rhythm, no murmur Gastrointestinal: normal bowel sounds, non tender, soft Extremities: normal inspection, normal capillary refill Neurologic/Psychiatric: other (MENTATION NOTED ABOVE. PT IS MOVING ALL EXTREMITIES.) Appearance/Memory: disheveled Skin: normal color, warm/dry; No ecchymosis; other (NO EXTERNAL EVIDENCE OF TRAUMA ANYWHERE) Progress/Results/Core Measures Results/Orders Lab Results Laboratory Tests Test 07/15/20 00:20 07/15/20 00:32 07/15/20 00:40 Range/Units White Blood Count 7.1 4.3-11.0 10^3/uL Red Blood Count 4.38 3.80-5.11 10^6/uL Hemoglobin 11.5 11.5-16.0 g/dL Hematocrit 36 35-52 % Mean Corpuscular Volume 82 80-99 fL Mean Corpuscular Hemoglobin 26 25-34 pg Mean Corpuscular Hemoglobin Concent 32 32-36 g/dL Red Cell Distribution Width 14.6 H 10.0-14.5 % Platelet Count 342 130-400 10^3/uL Mean Platelet Volume 9.5 9.0-12.2 fL Immature Granulocyte % (Auto) 0 % Neutrophils (%) (Auto) 58 42-75 % Lymphocytes (%) (Auto) 34 12-44 % Monocytes (%) (Auto) 6 0-12 % Eosinophils (%) (Auto) 2 0-10 % Basophils (%) (Auto) 0 0-10 % Neutrophils # (Auto) 4.1 1.8-7.8 10^3/uL Lymphocytes # (Auto) 2.4 1.0-4.0 10^3/uL Monocytes # (Auto) 0.4 0.0-1.0 10^3/uL Eosinophils # (Auto) 0.1 0.0-0.3 10^3/uL Basophils # (Auto) 0.0 0.0-0.1 10^3/uL Immature Granulocyte # (Auto) 0.0 0.0-0.1 10^3/uL Sodium Level 144 135-145 MMOL/L Potassium Level 3.8 3.6-5.0 MMOL/L Chloride Level 106 98-107 MMOL/L Carbon Dioxide Level 25 21-32 MMOL/L Anion Gap 13 5-14 MMOL/L Blood Urea Nitrogen 7 7-18 MG/DL Creatinine 0.68 0.60-1.30 MG/DL Estimat Glomerular Filtration Rate > 60 BUN/Creatinine Ratio 10 Glucose Level 101 70-105 MG/DL Calcium Level 8.3 L 8.5-10.1 MG/DL Corrected Calcium 8.6 8.5-10.1 MG/DL Magnesium Level 1.9 1.6-2.4 MG/DL Total Bilirubin 0.2 0.1-1.0 MG/DL Aspartate Amino Transf (AST/SGOT) 15 5-34 U/L Alanine Aminotransferase (ALT/SGPT) 13 0-55 U/L Alkaline Phosphatase 58 40-136 U/L Total Protein 6.4 6.4-8.2 GM/DL Albumin 3.6 3.2-4.5 GM/DL Amylase Level 68 25-125 U/L Lipase 22 8-78 U/L TSH [place] Testing 1.53 0.35-4.94 UIU/ML Serum Test, Qualitative NEGATIVE NEGATIVE Salicylates Level < 5.0 L 5.0-20.0 MG/DL Acetaminophen Level < 10 L 10-30 UG/ML Serum Alcohol 292 H <10 MG/DL Coronavirus 2019 ([place]) Negative Negative Urine Color YELLOW Urine Clarity CLEAR Urine pH 7.0 5-9 Urine Specific [place] 1.010 L 1.016-1.022 Urine Protein NEGATIVE NEGATIVE Urine Glucose (UA) NEGATIVE NEGATIVE Urine Ketones NEGATIVE NEGATIVE Urine Nitrite NEGATIVE NEGATIVE Urine Bilirubin NEGATIVE NEGATIVE Urine Urobilinogen 0.2 < = 1.0 MG/DL Urine Leukocyte Esterase NEGATIVE NEGATIVE Urine RBC (Auto) NEGATIVE NEGATIVE Urine RBC NONE /HPF Urine WBC NONE /HPF Urine Squamous Epithelial Cells 5-10 /HPF Urine Crystals NONE /LPF Urine Bacteria NEGATIVE /HPF Urine Casts NONE /LPF Urine Mucus SMALL H /LPF Urine Culture Indicated NO Urine Opiates Screen NEGATIVE NEGATIVE Urine Oxycodone Screen NEGATIVE NEGATIVE Urine Methadone Screen NEGATIVE NEGATIVE Urine Propoxyphene Screen NEGATIVE NEGATIVE Urine Barbiturates Screen NEGATIVE NEGATIVE Ur Tricyclic Antidepressants Screen NEGATIVE NEGATIVE Urine Phencyclidine Screen NEGATIVE NEGATIVE Urine Amphetamines Screen NEGATIVE NEGATIVE Urine Methamphetamines Screen NEGATIVE NEGATIVE Urine Benzodiazepines Screen NEGATIVE NEGATIVE Urine Cocaine Screen NEGATIVE NEGATIVE Urine Cannabinoids Screen NEGATIVE NEGATIVE My Orders Orders - TRISH JOLLEY DO Ed Iv/Invasive Line Start (07/14/20 23:56) Ekg Tracing (07/14/20 23:56) Monitor-Rhythm Ecg Trace Only (07/14/20 23:56) Straight Cath For Spec.-Adult (07/14/20 23:56) Acetaminophen (07/14/20 23:56) Alcohol (07/14/20 23:56) Amylase (07/14/20 23:56) Cbc With Automated Diff (07/14/20 23:56) Comprehensive Metabolic Panel (07/14/20 23:56) Drug Screen Stat (Urine) (07/14/20 23:56) Hcg,Qualitative Serum (07/14/20 23:56) Lipase (07/14/20 23:56) Magnesium (07/14/20 23:56) Ua Culture If Indicated (07/14/20 23:56) Ed Iv/Invasive Line Start (07/14/20 23:56) Lactated Ringers (Lr 1000 Ml Iv Solution (07/14/20 23:56) Covid 19 Inhouse Test (07/14/20 23:58) [place] Level (07/14/20 23:59) Coronavirus Sars-Cov-2 So 2019 (07/15/20 01:00) Salicylate (07/15/20 01:32) Thyroid Analyzer (07/15/20 01:32) Ed Iv/Invasive Line Start (07/15/20 01:36) Lactated Ringers (Lr 1000 Ml Iv Solution (07/15/20 01:36) Medications Given in ED Current Medications Medications Dose Ordered Sig/Amaris Route Start Time Stop Time Status Last Admin Dose Admin Lactated Ringer's 1,000 ml @ 0 mls/hr Q0M ONCE IV 07/14/20 23:56 07/14/20 23:59 DC 07/15/20 00:25 999 MLS/HR Vital Signs/I&O 07/14/20 23:50 Temp 35.7 Pulse 74 Resp 14 B/P (MAP) 106/68 (81) O2 Delivery Room Air Blood Pressure Mean: 81 Progress Progress Note : Progress Note PPE WORN AND RAPID COVID-19 TESTING DONE AND WAS NEGATIVE GIVEN IV FLUIDS NO DETERIORATION IN PT'S CONDITION DURING ER STAY Initial ECG Impression Date: Jul 15, 2020 Initial ECG Impression Time: 00:06 Initial ECG Rate: 73 Initial ECG Rhythm: Normal Sinus Departure Communication (Admissions) 0119--SPOKE WITH DR. QURESHI, HOSPITALIST FOR [facility]. ACCEPTS PT FOR ADMIT. Impression Primary Impression: REPORTED SUICIDAL IDEATION Additional Impressions: Alcohol intoxication Hx of bipolar disorder HX OF NON-COMPLIANCE Disposition: ADMITTED INPATIENT Condition: Stable Admissions Decision to Admit Reason: Admit from ER (General) Decision to Admit/Date: Jul 15, 2020 Time/Decision to Admit Time: 01:20 Departure-Patient Inst. Referrals: [facility] [place] Primary Care Physician Patient Instructions: ALCOHOL AND SUBSTANCE ABUSE TRISH JOLLEY DO Jul 15, 2020 01:20
--- NOTE | 2020-07-15 01:33 | NUR ---
SHAWANDA, PROJECT SAFETY MANAGER, CALLED IN NURSE FOR ICU FOR STAFFING.
[2020-07-15] MEDS ORDERED: LACTATED RINGERS 1,000 ML IV ONE (01:36)
[2020-07-15 01:54] LABS: SALICYLATE < 5.0 MG/DL (5.0-20.0)
[2020-07-15 02:14] LABS: TSH (THYROID ANALYZER) 1.53 UIU/ML (0.35-4.94)
[2020-07-15 03:05] VITALS: BP 110/72
--- NOTE | 2020-07-15 03:05 | NUR ---
PER EMS PT WAS WITH DAUGHTER WHEN SHE WAS PICKED UP FOR TRANSPORT TO THE ER. NO NUMBER AVAILABLE FOR DAUGHTER AT TIME OF ADMISSION TO INFORM OF PLAN.
[2020-07-15] MEDS ORDERED: D5 1/2 NS W/KCL 20 MEQ/L 1,000 ML IV ONE (03:24)
--- NOTE | 2020-07-15 03:30 | NUR ---
ON TRANSFER TO ICU PT MORE AWAKE AND ALERT AND QUESTIONING ADMIT TO ICU. EXPLAINED TO PT ICU ADMISSION FOR CLOSER MONITORING R/T PT ELEVATED ETOH LEVEL WELL STATED SUIDICIAL IDEATIONS BY DAUGHTER TO POLICE AND EMS. WHEN ASKED IF PT WANTED TO HARM HERSELF SHE STATED "YES". PT STATED SHE HAD NOT BEEN TAKING LITHIUM FOR SEVERAL DAYS. PT REQUESTS RODGER BE NOTIFIED OF ADMISSION. THIS INFORMATION REPORTED TO BAY MARQUEZ ON ARRIVAL TO ICU.
--- NOTE | 2020-07-15 03:35 | NUR ---
PT RODGER NOTIFIED OF PT CONDITION AND ADMISSION TO ICU. PASSWORD "MILO" CREATED AT THIS TIME AND WILL REPORT TO ICU.
--- NOTE | 2020-07-15 03:35 | NUR ---
PT REACHED AT [phone].
[2020-07-15] MEDS ORDERED: 1/2 NS IV SOLUTION 1,000 ML IV PRN (03:40)
[2020-07-15] MEDS ORDERED: LORazepam 1 MG (ATIVAN) TAB PO PRN (03:45)
[2020-07-15] MEDS ORDERED: SENNA W/DOCUSATE (SENOKOT S) TABLET PO PRN (03:45)
[2020-07-15] MEDS ORDERED: D5 1/2 NS 1000 ML IV SOLUTION 1,000 ML IV PRN (03:45)
[2020-07-15] MEDS ORDERED: D5 1/2 NS W/KCL 20 MEQ/L 1,000 ML IV SCH (03:45)
[2020-07-15] MEDS ORDERED: LORazepam INJ 2 MG/ML (ATIVAN) VIAL IV PRN (03:45)
[2020-07-15] MEDS ORDERED: LORazepam INJ 2 MG/ML (ATIVAN) VIAL IM/IV PRN (03:45)
[2020-07-15] MEDS ORDERED: ONDANSETRON 4 MG (ZOFRAN) ORAL DISSOLVE TAB SL PRN (03:45)
[2020-07-15] MEDS ORDERED: ANTACID SUSP 30 ML UDC (MYLANTA) PO PRN (03:45)
[2020-07-15] MEDS ORDERED: ONDANSETRON 4 MG/2 ML (SDV) Z0FRAN IV PRN ×2 (03:45)
--- NOTE | 2020-07-15 04:21 | Pulmonary Consultation ---
NAHED WOODS MED STUDENT 07/15/20 0421: History of Present Illness History of Present Illness Date Seen by Provider: Jul 15, 2020 Time Seen by Provider: 04:15 Date of Admission History of Present Illness Pt is a 39y/o female presenting for alcohol intoxication, depression, and suicidal ideation. She has a hx of coming in for similar presentations in the past, and has a hx of bipolar as well. She admitted to nurse that she still has suicidal ideation. To myself she admitted she "didn't know why she was here". She states that she last remembers getting into an argument with her daughter, but that it was "not a big fight". Admits to seeing someone for mental health in the past, but that it didn't really help her. Admits to drinking wine once a week. Pt was laid off at the start of [employer], but has not been looking for a job d/t 's concerns over covid. Spends all her time at home with family. update: pt denies suicidal ideation after becoming sober. Admitted to Dr. Fajardo that she drinks rum five times a week and sometimes gets shaky. Pt denies seizures. Allergies and Home Medications Allergies Coded Allergies: vancomycin (Unverified Allergy, Severe, 05/11/10) metoclopramide (Unverified Adverse Reaction, Intermediate, 05/11/10) Uncoded Allergies: DARVOCET (Allergy, Intermediate, 05/11/10) Home Medications Olanzapine 10 Mg Tablet, 10 MG PO DAILY Prescribed by: IGOR MARIANO on 01/20/201957 Past Fligmjf-Mddcdq-Ofapib Hx Past Med/Social Hx: Reviewed and Corrections made Patient Social History Alcohol Use: Regular Use (rum 5x/week) Number of Drinks Today: FF Alcohol Beverage of Choice: Rum, Vodka Recreational Drug Use: No Drug of Choice: UNKNOWN R/T ETOH INTOXICATION Smoking Status: Current Everyday Smoker Type Used: Cigarettes, Electronic/Vapor 2nd Hand Smoke Exposure: Yes Recent Foreign Travel: No Contact w/Someone Who Travel: No Recent Hopitalizations: No Immunizations Up To Date Tetanus Booster (TDap): Unknown Seasonal Allergies Seasonal Allergies: No Past Medical History Surgeries: Yes (SMALL BOWEL RESECTION FOR CROHN'S, HEART) Abdominal, Bowel Surgery, Gallbladder, Tubal Ligation Respiratory: No Cardiac: No Neurological: No 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 Review of Systems Constitutional: No: Fever, Chills Respiratory: No: Shortness of breath Cardiovascular: Palpitations (previous diagnosis of pulmonary stenosis); No: C hest Pain Gastrointestinal: Abdominal Pain (chronic w/ crohn's dz), Diarrhea (chronic d/t Crohn's dz) Other Psych ROS: positive for depression, anxiety, and hx of suicidal ideation Sepsis Event Evaluation Height, Weight, BMI Height: 5'4.00" Weight: 120lbs. oz. 54.571365cc; 19.00 BMI Method:Stated Exam Exam Vital Signs Date Time Temp Pulse Resp B/P (MAP) Pulse Ox O2 Delivery O2 Flow Rate FiO2 07/15/20 03:50 95 Room Air 07/15/20 03:26 71 07/15/20 03:05 35.7 78 14 110/72 (81) 98 Room Air 07/14/20 23:50 35.7 74 14 106/68 (81) Room Air I & O 07/15/20 07:00 Intake Total 2000 ml Balance 2000 ml Height & Weight Height: 5'4.00" Weight: 120lbs. oz. 54.811989zi; 19.00 BMI Method:Stated General Appearance: No Apparent Distress, WD/WN HEENT: PERRL/EOMI Respiratory: Chest Non Tender, Lungs Clear, Normal Breath Sounds, No Accessory Muscle Use, No Respiratory Distress Cardiovascular: Regular Rate, Rhythm, No Edema, No Gallop, No JVD, Normal Peripheral Pulses, Systolic Murmur (2/6 pulmonary stenosis) Capillary Refill: Less Than 3 Seconds Peripheral Pulses: 2+ Dorsalis Pedis (R), 2+ Left Dors-Pedis (L), 2+ Radial Pulses (R), 2+ Radial Pulses (L) Gastrointestinal: normal bowel sounds, non tender, soft Extremity: Normal Capillary Refill, Normal Inspection, Non Tender, No Pedal Edema Neurologic/Psychiatric: Alert, Oriented x3, Normal Mood/Affect Skin: Normal Color, Warm/Dry Results Lab Laboratory Tests 07/15/20 00:20 SHIRA FAJARDO DO 07/15/20 0536: History of Present Illness History of Present Illness Time Seen by Provider: 05:36 Allergies and Home Medications Allergies Coded Allergies: vancomycin (Unverified Allergy, Severe, 05/11/10) metoclopramide (Unverified Adverse Reaction, Intermediate, 05/11/10) Uncoded Allergies: DARVOCET (Allergy, Intermediate, 05/11/10) Home Medications Olanzapine 10 Mg Tablet, 10 MG PO DAILY Prescribed by: IGOR MARIANO on 01/20/201957 Review of Systems Time Seen by Provider: 05:35 Assessment/Plan Assessment/Plan Acute OD with suicidal ideation and alcohol intoxication -Pt currently denies suicidal ideation. -D/C CIWA protocol unless pt clearly starts to have withdrawals -Continue vitamins -Rapid COVID is negative Depression and hx of BiPolar Probable discharge home today. Supervisory-Addendum Brief Verification & Attestation Participated in pt care: history, MDM, physical Personally performed: exam, history, MDM Care discussed with: Medical Student Procedures: n/a Verification and Attestation of Medical Student E/M Service A medical student performed and documented this service in my presence. I reviewed and verified all information documented by the medical student and made modifications to such information, when appropriate. I personally performed the physical exam and medical decision making. Shira Fajardo, Jul 15, 2020,05:30 NAHED OWODS MED STUDENT Jul 15, 2020 04:21 SHIRA AFJARDO DO Jul 15, 2020 05:36
--- NOTE | 2020-07-15 04:31 | NUR ---
Patient is alert and oriented. No harm contract read to patient by this nurse with contract in front of patient, patient agreed to no harm contract and signed agreement. Will continue to closely monitor.
[2020-07-15] MEDS ORDERED: KCL 20 MEQ TAB (K-DUR) PO SCH (06:00)
[2020-07-15] MEDS ORDERED: POTASSIUM CL 10MEQ/50ML IVPB 50 ML IV SCH (06:00)
[2020-07-15] MEDS ORDERED: MAGNESIUM 1 GM/100 ML IVPB 100 ML IV SCH (06:00)
[2020-07-15] MEDS ORDERED: FLU QUADRIvalent (3YOA+) 60 mcg/0.5 ml 2020-21 (AFLURIA) IM ONE (08:00)
[2020-07-15] MEDS ORDERED: THIAMINE INJECTION 100 MG, FOLIC ACID INJECTION 1 MG, MAGNESIUM SULFATE 2 GM, VITAMIN M... IV SCH ×5 (09:00)
--- NOTE | 2020-07-15 09:47 | Short Stay Summary-Hospitalist ---
CADY GARCIA MED STUDENT 07/15/20 0947: History of Present Illness HPI/Chief Complaint Anna Sims is a 39 y/o female with Hx of EtOH intoxication, anxiety, depression and bipolar disorder who presented for acute intoxication and suicidal ideation last night(07/14/20). Patient was arguing with daughter and stated she was suicidal, daughter called EMS who brought her here. Patient was given IV fluids in the ER, unable to give accurate history secondary to intoxication, no withdrawl symptoms noted. This morning patient is able to provide more hx, admits to drinking rum daily, noting she was more stressed since being laid off with the onset of COVID. Patient laying comfortably in room at the moment, denies suicidal ideation, SOB or other acute complaints. She notes minor abdominal pain which is normal for her crohn's disease. Dr. Tana tabor onsulted, no interventions recommended. Patient states she is ready to go home and her has called her mental healthcare provider (DESMOND Huang at [facility]) for f/u. Source: patient, RN notes reviewed, other (ED note) Exam Limitations: no limitations Date Seen 07/15/20 Time Seen by a Provider: 08:10 Attending Physician Pola Campbell MD [facility] Referring Physician Date of Admission Jul 15, 2020 at 01:20 Home Medications & Allergies Home Medications Reviewed patient Home Medication Reconciliation performed by pharmacy medication reconciliations dictaphone technician and/or nursing. Patients Allergies have been reviewed. Allergies Allergies Coded Allergies vancomycin (Unverified Allergy, Severe, 05/11/10) metoclopramide (Unverified Adverse Reaction, Intermediate, 05/11/10) Uncoded Allergies DARVOCET ( Allergy, Intermediate, 05/11/10) Past Vuliyab-Zviyix-Fscbpq Hx Past Med/Social Hx: Reviewed and Corrections made Patient Social History Marrital Status: Employed/Student: unemployed (recent, COVID) Alcohol Use: Regular Use (rum 5x/week) Alcohol Beverage of Choice: Rum, Vodka Recreational Drug Use: No Smoking Status: Current Everyday Smoker Type Used: Cigarettes, Electronic/Vapor 2nd Hand Smoke Exposure: Yes Recent Foreign Travel: No Contact w/other who traveled: No Recent Hopitalizations: No Immunizations Up To Date Tetanus Booster (TDap): Unknown Seasonal Allergies Seasonal Allergies: No Past Medical History Surgeries: Abdominal, Bowel Surgery, Gallbladder, Tubal Ligation 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: No Tubal Ligation Gastrointestinal: Crohns Disease Endocrine: Hypothyroidsim Psychosocial: Anxiety, Bipolar, Depression History of Blood Disorders: No Adverse Reaction to Blood Carlin: No Family History No Pertinent Family Hx Review of Systems Constitutional: No chills, No fever EENTM: No ear pain, No eye pain Respiratory: No cough, No dyspnea on exertion, No short of breath Cardiovascular: No chest pain, No edema Gastrointestinal: No abdominal pain, No heartburn Genitourinary: No dysuria, No hematuria Musculoskeletal: No joint pain, No muscle pain Skin: No change in hair/nails, No rash Psychiatric/Neurological: Denies Headache, Denies Numbness Physical Exam Physical Exam Vital Signs Vital Signs - First Documented 07/14/20 07/15/20 23:50 03:05 Temp 35.7 Pulse 74 Resp 14 B/P (MAP) 106/68 (81) Pulse Ox 98 O2 Delivery Room Air Capillary Refill : Less Than 3 Seconds Height, Weight, BMI Height: 5'4.00" Weight: 120lbs. oz. [id number]; 19.00 BMI Method:Stated General Appearance: No Apparent Distress, WD/WN HEENT: No Scleral Icterus (L), No Scleral Icterus (R) Neck: Normal Inspection, Non Tender Respiratory: Chest Non Tender, No Accessory Muscle Use, No Respiratory Distress Cardiovascular: Regular Rate, Rhythm, No Edema, Normal Peripheral Pulses, Systolic Murmur (pulmonary stenosis) Gastrointestinal: No Pulsatile Mass, Non Tender Extremity: Normal Inspection, Non Tender, No Pedal Edema Neurologic/Psychiatric: Alert, Oriented x3, Normal Mood/Affect Skin: Normal Color, Warm/Dry Results Results/Procedures Labs Laboratory Tests 07/15/20 00:20 Patient resulted labs reviewed. Short Stay Diagnosis Discharge Diagnosis-Short Stay Admission Diagnosis Acute alcohol intoxication -fluids -replace vitamins as needed Suicidal ideation -currently denies -appointment scheduled with outpatient mental health Chronic -bipolar -crohn's -EtOH abuse -medication noncompliance Clinical Quality Measures DVT/VTE Risk/Contraindication: Risk Factor Score Per Nursin RFS Level Per Nursing on Admit: 1=Low/No VTE PPX FLORI STEWARD DO 07/16/20 0504: Past Jhaulnq-Nuixvx-Tgccpp Hx Past Med/Social Hx: Reviewed Nursing Past Med/Soc Hx, Reviewed and Corrections made Review of Systems Constitutional: see HPI Physical Exam Physical Exam General Appearance: No Apparent Distress, WD/WN, Chronically ill Respiratory: Lungs Clear Short Stay Diagnosis Discharge Diagnosis-Short Stay Admission Diagnosis ETOH intoxication Final Discharge Diagnosis ETOH intoxication Conclusion Plan DC home Diagnosis/Problems Diagnosis/Problems (1) Alcohol intoxication Status: Acute (2) Hx of bipolar disorder Status: Acute (3) Depression Status: Acute Supervisory-Addendum Brief Verification & Attestation Participated in pt care: history, MDM, physical Personally performed: exam, history, MDM, supervision of care Care discussed with: Medical Student Procedures: n/a Results interpretation: Verified all documentation Verification and Attestation of Medical Student E/M Service A medical student performed and documented this service in my presence. I reviewed and verified all information documented by the medical student and made modifications to such information, when appropriate. I personally performed the physical exam and medical decision making. Flori Steward, Jul 16, 2020,05:05 CADY GARCIA MED STUDENT Jul 15, 2020 09:47 FLORI STEWARD DO Jul 16, 2020 05:04
--- NOTE | 2020-07-15 09:58 | NUR ---
Pt awake, alert et oriented. Pt given discharge instructions at this time. Verbalizes understanding and states she will follow up with mental health after discharge, as she sees someone regularly for medications. Encouraged medication compliance also during this time. Pt verbalizes understanding. Pt currently awaiting flu shot then will be discharged post flu shot.
--- NOTE | 2020-07-15 10:35 | NUR ---
CM/SURENDRA visited with the patient for social service consult. Plan: Patient will return home with substance use resources and will follow up with Cathleen at [facility]. Patient denies suicidal ideation at this time. DCF report ID: [id number]. A DCF report was made due to concern for 12-year-old son living in the home and doing virtual learning at home. Home: Patient lives at home with her and her 12-year-old son. Substance Use: The patient states that she has been drinking alcohol for the past 10 years "on and off". She states that she has been to an inpatient treatment facility many years ago but does not feel she would like to do that at this time. She reports being interested in intensive outpatient treatment. CM/SURENDRA provided patient with outpatient program education for [facility]. She verbalized understanding. The patient denies drug use. Mental Health: The patient states that she see a psychiatrist (Cathleen) at [facility]. Her next appointment is set for June,. MULUGETA/SURENDRA discussed having the appointment moved up. The patient states she will call to schedule one sooner. She verbalized that she was in [facility] last week and they started her on some new medications. SI: The patient denies wanting to hurt or kill herself at time time. Denies suicidal ideation. She believes it is due to the alcohol. Supports: The patient states that her , daughter, and mother are a good support for her. No further needs at this time.
--- NOTE | 2020-07-15 11:13 | NUR ---
ELLIS GANT demonstrates understanding of discharge instructions and accurately returns instructions upon questioning. Copy of Post-Discharge Instructions and Medication Discharge Instructions given to patient. ELLIS GANT is able to manage continuing needs after discharge. Patients belongings returned to patient. Skin dry and intact; no breakdown noted. Patient discharged from [facility]- on 07/15/20 at 1100 . ELLIS GANT left floor via wheelchair, accompanied by PCT.
== END 2020-07-15 11:00 | disposition home or self-care (01) ==
LOC: EDUNIT# 23:53 → ER 23:55 → ICU 07-15 01:20
PROVIDERS: ADMIT Internal Medicine; ATTEND Internal Medicine
DX: F10.129 Alcohol abuse with intoxication, unspecified (principal); R45.851 Suicidal ideations; F32.9 Major depressive disorder, single episode, unspecified; F41.9 Anxiety disorder, unspecified; E03.9 Hypothyroidism, unspecified; K50.90 Crohn's disease, unspecified, without complications; F17.290 Nicotine dependence, other tobacco product, uncomplicated; Z79.899 Other long term (current) drug therapy; Z88.1 Allergy status to other antibiotic agents; Z88.5 Allergy status to narcotic agent; Z88.8 Allergy status to other drugs, medicaments and biological substances
CPT/HCPCS: 51701; 80053; 80178; 80306; 81000; 82150; 83690; 83735; 84443; 84703; 85025; 87081; 93005; 93041; 96360; 96361; 99285; G0378; G0480 ×3; U0002; 36415; 80320; 80329; 87635; 90686

== ENCOUNTER 2020-08-16 20:25 | Emergency (ER) | payer BC ==
[~2020-08-16] VITALS: Ht 162.5 cm; Wt 54.4 kg
[2020-08-16] MEDS ORDERED: LIDOCAINE 2% VISCOUS 15 ML UDC PO ONE (20:45)
[2020-08-16] MEDS ORDERED: LORazepam INJ 2 MG/ML (ATIVAN) VIAL IVP ONE (20:45)
[2020-08-16] MEDS ORDERED: PANTOPRAZOLE 40 MG (PROTONIX) VIAL IV ONE (20:45)
[2020-08-16] MEDS ORDERED: ONDANSETRON 4 MG/2 ML (SDV) Z0FRAN IVP ONE (20:45)
[2020-08-16] MEDS ORDERED: ANTACID SUSP 30 ML UDC (MYLANTA) PO ONE (20:45)
[2020-08-16] MEDS ORDERED: NS IV 1000 ML 1,000 ML IV SCH (20:45)
--- NOTE | 2020-08-16 20:49 | ED General ---
General Stated Complaint: ETOH RELAPSE, POSS DETOX Source of Information: Patient Exam Limitations: No Limitations History of Present Illness Date Seen by Provider: Aug 16, 2020 Time Seen by Provider: 20:45 Initial Comments To ER with reports of being on a "velazquez" r/t etoh use. Has been drinking over a pint of vodka daily and "feels like ". Hasnt eaten much or drank much water. Feels very anxious. C/o LUQ abdominal pain, n/v as well. Reports currently on menstrual cycle. Timing/Duration: 3-4 Days Severity: Moderate Associated Systoms: Nausea/Vomiting Allergies and Home Medications Allergies Coded Allergies: vancomycin (Unverified Allergy, Severe, 05/11/10) metoclopramide (Unverified Adverse Reaction, Intermediate, 05/11/10) Uncoded Allergies: DARVOCET (Allergy, Intermediate, 05/11/10) Home Medications Chlordiazepoxide HCl 25 Mg Capsule, 25 MG PO UD Day 1 two tablets every 6 hours Day 2 one tablet every 6 hours Day 3 one tablet every 12 hours Day 4 one tablet at bedtime Prescribed by: IGOR MARIANO on 08/16/202123 Olanzapine 10 Mg Tablet, 10 MG PO DAILY Prescribed by: IGOR MARIANO on 01/20/201957 Thiamine Mononitrate 100 Mg Tablet, 100 MG PO DAILY Prescribed by: IGOR MARIANO on 08/16/202122 Patient Home Medication List Home Medication List Reviewed: Yes Review of Systems Review of Systems Constitutional: see HPI EENTM: see HPI Respiratory: no symptoms reported Cardiovascular: no symptoms reported Gastrointestinal: nausea, vomiting Genitourinary: no symptoms reported Musculoskeletal: no symptoms reported Skin: no symptoms reported Psychiatric/Neurological: No Symptoms Reported Hematologic/Lymphatic: No Symptoms Reported Past Oasuvmk-Zyvqoq-Xwjbur Hx Patient Social History Alcohol Beverage of Choice: Rum, Vodka Type Used: Cigarettes, Electronic/Vapor 2nd Hand Smoke Exposure: Yes Recent Foreign Travel: No Contact w/Someone Who Travel: No Recent Hopitalizations: No Immunizations Up To Date Tetanus Booster (TDap): Unknown Seasonal Allergies Seasonal Allergies: No Past Medical History Surgeries: Yes (SMALL BOWEL RESECTION FOR CROHN'S, HEART) Abdominal, Bowel Surgery, Gallbladder, Tubal Ligation Respiratory: No Cardiac: No Neurological: No 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 Disorders: No 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 oz. 54.439577rc; 19.00 BMI Method:Stated General Appearance: No Apparent Distress, WD/WN, Chronically ill, Thin Eyes: Bilateral Eye Normal Inspection, Bilateral Eye PERRL, Bilateral Eye EOMI Neck: Full Range of Motion, Normal Inspection Respiratory: Normal Breath Sounds, No Accessory Muscle Use, No Respiratory Di stress Cardiovascular: Normal Peripheral Pulses, Tachycardia Gastrointestinal: Normal Bowel Sounds, Non Tender, Soft Extremity: Normal Capillary Refill, Normal Inspection Neurologic/Psychiatric: Alert, Oriented x3 Skin: Normal Color, Warm/Dry Progress/Results/Core Measures Suspected Sepsis SIRS Temperature: Pulse: Respiratory Rate: Laboratory Tests 08/16/20 20:41: White Blood Count 10.5 Blood Pressure / Mean: Laboratory Tests 08/16/20 20:41: Creatinine 0.69, INR Comment 1.0, Platelet Count 371, Total Bilirubin 0.7 Results/Orders Lab Results Laboratory Tests Test 08/16/20 20:41 08/16/20 20:45 Range/Units White Blood Count 10.5 4.3-11.0 10^3/uL Red Blood Count 5.25 H 3.80-5.11 10^6/uL Hemoglobin 13.8 11.5-16.0 g/dL Hematocrit 42 35-52 % Mean Corpuscular Volume 79 L 80-99 fL Mean Corpuscular Hemoglobin 26 25-34 pg Mean Corpuscular Hemoglobin Concent 33 32-36 g/dL Red Cell Distribution Width 14.6 H 10.0-14.5 % Platelet Count 371 130-400 10^3/uL Mean Platelet Volume 9.0 9.0-12.2 fL Immature Granulocyte % (Auto) 0 % Neutrophils (%) (Auto) 92 H 42-75 % Lymphocytes (%) (Auto) 4 L 12-44 % Monocytes (%) (Auto) 3 0-12 % Eosinophils (%) (Auto) 0 0-10 % Basophils (%) (Auto) 0 0-10 % Neutrophils # (Auto) 9.7 H 1.8-7.8 10^3/uL Lymphocytes # (Auto) 0.4 L 1.0-4.0 10^3/uL Monocytes # (Auto) 0.3 0.0-1.0 10^3/uL Eosinophils # (Auto) 0.0 0.0-0.3 10^3/uL Basophils # (Auto) 0.0 0.0-0.1 10^3/uL Immature Granulocyte # (Auto) 0.0 0.0-0.1 10^3/uL Neutrophils % (Manual) 82 % Lymphocytes % (Manual) 5 % Monocytes % (Manual) 3 % Band Neutrophils 10 % Blood Morphology Comment NORMAL Prothrombin Time 13.7 12.2-14.7 SEC INR Comment 1.0 0.8-1.4 Sodium Level 131 L 135-145 MMOL/L Potassium Level 3.1 L 3.6-5.0 MMOL/L Chloride Level 88 L 98-107 MMOL/L Carbon Dioxide Level 18 L 21-32 MMOL/L Anion Gap 25 H 5-14 MMOL/L Blood Urea Nitrogen 10 7-18 MG/DL Creatinine 0.69 0.60-1.30 MG/DL Estimat Glomerular Filtration Rate > 60 BUN/Creatinine Ratio 14 Glucose Level 123 H 70-105 MG/DL Calcium Level 7.9 L 8.5-10.1 MG/DL Corrected Calcium 8.1 L 8.5-10.1 MG/DL Total Bilirubin 0.7 0.1-1.0 MG/DL Aspartate Amino Transf (AST/SGOT) 22 5-34 U/L Alanine Aminotransferase (ALT/SGPT) 11 0-55 U/L Alkaline Phosphatase 87 40-136 U/L Total Protein 7.0 6.4-8.2 GM/DL Albumin 3.7 3.2-4.5 GM/DL Lipase 109 H 8-78 U/L Serum Test, Qualitative NEGATIVE NEGATIVE Serum Alcohol 236 H <10 MG/DL Urine Color YELLOW Urine Clarity CLEAR Urine pH 6.0 5-9 Urine Specific Bonnyman 1.025 H 1.016-1.022 Urine Protein 1+ H NEGATIVE Urine Glucose (UA) NEGATIVE NEGATIVE Urine Ketones 1+ H NEGATIVE Urine Nitrite NEGATIVE NEGATIVE Urine Bilirubin NEGATIVE NEGATIVE Urine Urobilinogen 0.2 < = 1.0 MG/DL Urine Leukocyte Esterase NEGATIVE NEGATIVE Urine RBC (Auto) 3+ H NEGATIVE Urine RBC 25-50 H /HPF Urine WBC NONE /HPF Urine Squamous Epithelial Cells 5-10 /HPF Urine Crystals NONE /LPF Urine Bacteria TRACE /HPF Urine Casts NONE /LPF Urine Mucus SMALL H /LPF Urine Culture Indicated NO Urine Opiates Screen NEGATIVE NEGATIVE Urine Oxycodone Screen NEGATIVE NEGATIVE Urine Methadone Screen NEGATIVE NEGATIVE Urine Propoxyphene Screen NEGATIVE NEGATIVE Urine Barbiturates Screen NEGATIVE NEGATIVE Ur Tricyclic Antidepressants Screen NEGATIVE NEGATIVE Urine Phencyclidine Screen NEGATIVE NEGATIVE Urine Amphetamines Screen NEGATIVE NEGATIVE Urine Methamphetamines Screen NEGATIVE NEGATIVE Urine Benzodiazepines Screen NEGATIVE NEGATIVE Urine Cocaine Screen NEGATIVE NEGATIVE Urine Cannabinoids Screen NEGATIVE NEGATIVE My Orders Orders - IGOR MARIANO [employer] SYSTEMS TECHNICIAN Cbc With Automated Diff (08/16/20 20:43) Protime With Inr (08/16/20 20:43) Comprehensive Metabolic Panel (08/16/20 20:43) Alcohol (08/16/20 20:43) Lipase (08/16/20 20:43) Ed Iv/Invasive Line Start (08/16/20 20:43) Hcg,Qualitative Serum (08/16/20 20:43) Ns Iv 1000 Ml (Sodium Chloride 0.9%) (08/16/20 20:45) Lorazepam Injection (Ativan Injection) (08/16/20 20:45) Ondansetron Injection (Zofran Injectio (08/16/20 20:45) Pantoprazole Injection (Protonix Injecti (08/16/20 20:45) Antacid Suspension (Mylanta Suspension (08/16/20 20:45) Lidocaine 2% Viscous 15 Ml (Xylocaine Vi (08/16/20 20:45) Ua Culture If Indicated (08/16/20 20:50) Drug Screen Stat (Urine) (08/16/20 20:50) Manual Differential (08/16/20 20:41) Rx-Lorazepam (Rx-Ativan) (08/16/20 21:24) Lorazepam Injection (Ativan Injection) (08/16/20 21:30) Thiamine Tablet (Vitamin B-1 Tablet) (08/16/20 21:45) Folic Acid Tablet (Folic Acid Tablet) (08/16/20 21:45) Medications Given in ED Current Medications Medications Dose Ordered Sig/Amaris Route Start Time Stop Time Status Last Admin Dose Admin Al Hydrox/Mg Hydrox/Simethicone 30 ml ONCE ONCE PO 08/16/20 20:45 08/16/20 20:46 DC 08/16/20 20:58 30 ML Lidocaine HCl 15 ml ONCE ONCE PO 08/16/20 20:45 08/16/20 20:46 DC 08/16/20 20:59 15 ML Lorazepam 2 mg ONCE ONCE IVP 08/16/20 20:45 08/16/20 20:46 DC 08/16/20 20:58 2 MG Ondansetron HCl 8 mg ONCE ONCE IVP 08/16/20 20:45 08/16/20 20:46 DC 08/16/20 20:58 8 MG Pantoprazole 40 mg ONCE ONCE IV 08/16/20 20:45 08/16/20 20:46 DC 08/16/20 20:58 40 MG Vital Signs/I&O 08/16/20 20:30 Temp 36.6 Pulse 119 Resp 18 B/P (MAP) 130/96 (107) Pulse Ox 98 Capillary Refill : Departure Communication (Admissions) 8-Sitting up in bed, much more calm after 2mg iV ativan. Still feels a little shakey. Very pleasant and appreciative of care. No n/v here. Agrees with outpatient management using tranxene. Confirms shes detoxed several times in the past and has never had seizures. She has no contraindications to outpatient therapy and admission to the hospital would serve to expose her to Covid as we currently have a large volume of Covid patients hospitalized. Impression Primary Impression: Alcoholism Disposition: HOME, SELF-CARE Condition: Stable Departure-Patient Inst. Decision time for Depature: 21:16 Referrals: [facility] (PCP/Family) Primary Care Physician AMBER ALVES MD Patient Instructions: Alcohol Use - When Is Drinking a Problem?, Alcohol Abuse and Alcoholism (DC) Add. Discharge Instructions: . Call Dr Amber Alves on Wednesday to make an appointment to be seen to for help with detox which may include inpatient treatment pending bed availability. Use the chlordiazepoxide as directed below: Day 1 take two tablets every 6 hours Day 2 take 1 tablet every 6 hours Day 3 take 1 tablet every 12 hours Day 4 take 1 tablet at bedtime Also, take Thiamine vitamin daily x3 days. Scripts Thiamine Mononitrate (Vitamin B-1) 100 Mg Tablet 100 MG PO DAILY, #3 TAB . Prov: IGOR MARIANO APRN 08/16/20 Copy Copies To 1: AMBER ALVES MD, PETER J APRN Aug 16, 2020 20:49
[2020-08-16 20:51] LABS: BASOPHILS % (AUTO) 0 % (0-10); EOSINOPHILS % (AUTO) 0 % (0-10); HEMATOCRIT 42 % (35-52); HEMOGLOBIN 13.8 g/dL (11.5-16.0); LYMPHOCYTES # (AUTO) 0.4 10^3/uL (1.0-4.0); LYMPHOCYTES % (AUTO) 4 % (12-44); MEAN CORPUSCULAR HEMOGLOBIN 26 pg (25-34); MEAN CORPUSCULAR HGB CONC 33 g/dL (32-36); MEAN CORPUSCULAR VOLUME 79 fL (80-99); MONOCYTES # (AUTO) 0.3 10^3/uL (0.0-1.0); MONOCYTES % (AUTO) 3 % (0-12); NEUTROPHILS # (AUTO) 9.7 10^3/uL (1.8-7.8); NEUTROPHILS % (AUTO) 92 % (42-75); PLATELET COUNT 371 10^3/uL (130-400); WHITE BLOOD COUNT 10.5 10^3/uL (4.3-11.0)
[2020-08-16 20:55] LABS: BILIRUBIN,URINE NEGATIVE (NEGATIVE); CLARITY,URINE CLEAR; COLOR,URINE YELLOW; GLUCOSE, URINE (UA) NEGATIVE (NEGATIVE); KETONES,URINE 1+ (NEGATIVE); LEUKOCYTE ESTERASE ,URINE NEGATIVE (NEGATIVE); NITRITE,URINE NEGATIVE (NEGATIVE); PROTEIN,URINE 1+ (NEGATIVE)
[2020-08-16 20:59] LABS: PROTHROMBIN TIME PATIENT 13.7 SEC (12.2-14.7)
[2020-08-16 21:02] LABS: BACTERIA,URINE TRACE /HPF; RBC,URINE 25-50 /HPF
[2020-08-16 21:06] LABS: ALANINE AMINOTRANSFERASE 11 U/L (0-55); ALBUMIN 3.7 GM/DL (3.2-4.5); ALKALINE PHOSPHATASE 87 U/L (40-136); BILIRUBIN,TOTAL 0.7 MG/DL (0.1-1.0); BUN/CREATININE RATIO 14; CALCIUM 7.9 MG/DL (8.5-10.1); CARBON DIOXIDE 18 MMOL/L (21-32); CHLORIDE 88 MMOL/L (98-107); CREATININE SERUM 0.69 MG/DL (0.60-1.30); GFR ESTIMATED > 60; GLUCOSE 123 MG/DL (70-105); LIPASE 109 U/L (8-78); POTASSIUM 3.1 MMOL/L (3.6-5.0); SODIUM 131 MMOL/L (135-145)
[2020-08-16 21:10] LABS: BAND NEUTROPHILS 10 %; LYMPHOCYTES % (MANUAL) 5 %; MONOCYTES % (MANUAL) 3 %; NEUTROPHILS % (MANUAL) 82 %
[2020-08-16 21:11] LABS: RBC MORPH NORMAL
[2020-08-16 21:12] LABS: AMPHETAMINE SCREEN, URINE NEGATIVE (NEGATIVE); BARBITURATE SCREEN URINE NEGATIVE (NEGATIVE); BENZODIAZEPINES SCREEN URINE NEGATIVE (NEGATIVE); CANNABINOID SCREEN, URINE NEGATIVE (NEGATIVE); COCAINE SCREEN URINE NEGATIVE (NEGATIVE); METHADONE STAT NEGATIVE (NEGATIVE); METHAMPHETAMINE SCREEN URINE S NEGATIVE (NEGATIVE); OPIATE SCREEN URINE NEGATIVE (NEGATIVE); OXYCODONE STAT NEGATIVE (NEGATIVE); PROPOXYPHENE STAT NEGATIVE (NEGATIVE); TRICYCLIC ANTIDEPRESSANTS SCRE NEGATIVE (NEGATIVE)
[2020-08-16] MEDS ORDERED: CHLO25CA10 PO ×2 (21:23→21:51)
[2020-08-16] MEDS ORDERED: THIA100T68 PO ×2 (21:23→21:51)
[2020-08-16] MEDS ORDERED: RX-LORAZEPAM (ATIVAN) 0.5 MG TAB PPK#4 PO STA (21:24)
[2020-08-16] MEDS ORDERED: LORazepam INJ 2 MG/ML (ATIVAN) VIAL IVP PRN (21:30)
[2020-08-16] MEDS ORDERED: FOLIC ACID 1 MG TAB PO ONE (21:45)
[2020-08-16] MEDS ORDERED: THIAMINE 100 MG (VITAMIN B-1) TAB PO ONE (21:45)
[2020-08-16 21:56] VITALS: BP 135/93
[2020-08-17] MEDS ORDERED: CHLO25CA10 PO (09:45)
== END 2020-08-16 21:56 | disposition home or self-care (01) ==
LOC: EDUNIT# 20:25 → ER 20:27
DX: F10.20 Alcohol dependence, uncomplicated (principal); F41.9 Anxiety disorder, unspecified; F31.9 Bipolar disorder, unspecified; Z77.22 Contact with and (suspected) exposure to environmental tobacco smoke (acute) (chronic); Z88.8 Allergy status to other drugs, medicaments and biological substances
CPT/HCPCS: 80053; 80306; 81000; 83690; 84703; 85007; 85027; 85610; 96361; 96374; 96375; 96376; 99284; G0480; 36415; 80320

== ENCOUNTER 2020-08-18 16:26 | Emergency (ER) | payer BC ==
[~2020-08-18] VITALS: Ht 160 cm; Wt 54.0 kg
[~2020-08-18 16:26] MED LIST changes: +CHLO25CA10 PO; +THIA100T68 PO
--- NOTE | 2020-08-18 16:33 | NUR ---
NOTIFIED TATE Gayle PT [facility] IS RACING AND FEELS LIKE GOING TO PASS OUT IN WAITING ROOM
[2020-08-18] MEDS ORDERED: NS IV 1000 ML 1,000 ML IV SCH (17:05)
[2020-08-18 17:13] LABS: BASOPHILS % (AUTO) 0 % (0-10); EOSINOPHILS # (AUTO) 0.1 10^3/uL (0.0-0.3); EOSINOPHILS % (AUTO) 1 % (0-10); HEMATOCRIT 34 % (35-52); HEMOGLOBIN 11.2 g/dL (11.5-16.0); LYMPHOCYTES % (AUTO) 15 % (12-44); MEAN CORPUSCULAR HEMOGLOBIN 27 pg (25-34); MEAN CORPUSCULAR HGB CONC 33 g/dL (32-36); MEAN CORPUSCULAR VOLUME 81 fL (80-99); MEAN PLATELET VOLUME 9.5 fL (9.0-12.2); MONOCYTES # (AUTO) 0.3 10^3/uL (0.0-1.0); MONOCYTES % (AUTO) 5 % (0-12); NEUTROPHILS # (AUTO) 5.3 10^3/uL (1.8-7.8); NEUTROPHILS % (AUTO) 79 % (42-75); PLATELET COUNT 258 10^3/uL (130-400); WHITE BLOOD COUNT 6.7 10^3/uL (4.3-11.0)
[2020-08-18 17:22] LABS: ALBUMIN 3.5 GM/DL (3.2-4.5); CHLORIDE 90 MMOL/L (98-107); SODIUM 130 MMOL/L (135-145)
[2020-08-18 17:23] LABS: BILIRUBIN,URINE NEGATIVE (NEGATIVE); CLARITY,URINE CLEAR; COLOR,URINE YELLOW; GLUCOSE, URINE (UA) NEGATIVE (NEGATIVE); KETONES,URINE NEGATIVE (NEGATIVE); LEUKOCYTE ESTERASE ,URINE NEGATIVE (NEGATIVE); NITRITE,URINE NEGATIVE (NEGATIVE); PROTEIN,URINE NEGATIVE (NEGATIVE)
[2020-08-18 17:23] LABS: CALCIUM 7.7 MG/DL (8.5-10.1)
[2020-08-18 17:24] LABS: AMYLASE 44 U/L (25-125)
[2020-08-18 17:25] VITALS: BP 171/105
[2020-08-18 17:25] LABS: GLUCOSE 84 MG/DL (70-105); TOTAL PROTEIN 6.6 GM/DL (6.4-8.2)
--- NOTE | 2020-08-18 17:25 | NUR ---
PT LEAVING AMA, IV DC'D PT SIGNED AMA PAPER WORK. DISCHARGED
[2020-08-18 17:26] LABS: BILIRUBIN,TOTAL 0.3 MG/DL (0.1-1.0); CARBON DIOXIDE 21 MMOL/L (21-32)
[2020-08-18 17:28] LABS: ALKALINE PHOSPHATASE 85 U/L (40-136); CREATININE SERUM 0.74 MG/DL (0.60-1.30); GFR ESTIMATED > 60
[2020-08-18 17:29] LABS: POTASSIUM 2.4 MMOL/L (3.6-5.0)
[2020-08-18 17:30] LABS: BUN/CREATININE RATIO 5
[2020-08-18 17:31] LABS: SALICYLATE < 5.0 MG/DL (5.0-20.0)
[2020-08-18 17:32] LABS: ALANINE AMINOTRANSFERASE 10 U/L (0-55)
[2020-08-18 17:35] LABS: BACTERIA,URINE NEGATIVE /HPF; SQUAMOUS EPITHELIAL CELL,UR RARE /HPF
[2020-08-18 17:37] LABS: HCG,QUALITATIVE URINE NEGATIVE (NEGATIVE)
[2020-08-18 17:38] LABS: AMPHETAMINE SCREEN, URINE NEGATIVE (NEGATIVE); BARBITURATE SCREEN URINE NEGATIVE (NEGATIVE); BENZODIAZEPINES SCREEN URINE POSITIVE (NEGATIVE); CANNABINOID SCREEN, URINE NEGATIVE (NEGATIVE); COCAINE SCREEN URINE NEGATIVE (NEGATIVE); METHADONE STAT NEGATIVE (NEGATIVE); METHAMPHETAMINE SCREEN URINE S NEGATIVE (NEGATIVE); OPIATE SCREEN URINE NEGATIVE (NEGATIVE); OXYCODONE STAT NEGATIVE (NEGATIVE); PROPOXYPHENE STAT NEGATIVE (NEGATIVE); TRICYCLIC ANTIDEPRESSANTS SCRE NEGATIVE (NEGATIVE)
[2020-08-18 17:43] LABS: ACETAMINOPHEN < 10 UG/ML (10-30)
--- NOTE | 2020-08-18 18:36 | NUR ---
Poison Control called for follow up on pt's labs.
--- NOTE | 2020-08-19 00:22 | ED Psychosocial ---
General Chief Complaint: Substance Abuse Stated Complaint: DRANK ENTIRE BOTTLE OF LISTERINE Nursing Triage Note: PT TO ROOM 5 STATES DRANK LARGE BOTTLE OF LISTERINE AT 0300 THIS AM, STATES NEEDED ALCHOL AND DIDNT HAVE ANY AT HOME. CO OF STOMACH PAIN Source: other (RN ) History of Present Illness Date Seen by Provider: Aug 19, 2020 Time Seen by Provider: 17:15 Initial Comments Patient presents to ER after drinking 5 large bottles of Listerine today. Reportedly told RN that she needed alcohol and didn't have any home. Additionally she reportedly c/o abdominal pain. She left AMA prior to me performing an evaluation. Allergies and Home Medications Allergies Coded Allergies: vancomycin (Unverified Allergy, Severe, 05/11/10) metoclopramide (Unverified Adverse Reaction, Intermediate, 05/11/10) Uncoded Allergies: DARVOCET (Allergy, Intermediate, 05/11/10) Home Medications Chlordiazepoxide HCl 25 Mg Capsule, 25 MG PO UD Day 1 two tablets every 6 hours Day 2 one tablet every 6 hours Day 3 one tablet every 12 hours Day 4 one tablet at bedtime. Prescribed by: LOS HENSON on 08/17/20 0946 Olanzapine 10 Mg Tablet, 10 MG PO DAILY Prescribed by: IGOR MARIANO on 01/20/201957 Thiamine Mononitrate 100 Mg Tablet, 100 MG PO DAILY . Prescribed by: IGOR MARIANO on 08/16/202150 Patient Home Medication List Home Medication List Reviewed: Yes Review of Systems Constitutional: see HPI Past Rimjigh-Vbtxnw-Chrkzf Hx Patient Social History Alcohol Use: Regular Use Number of Drinks Today: FF Alcohol Beverage of Choice: Vodka Recreational Drug Use: Yes (Alcohol ) Drug of Choice: vodka Smoking Status: Current Everyday Smoker Type Used: Cigarettes, Electronic/Vapor Former Smoker, Quit: Feb 25, 2018 2nd Hand Smoke Exposure: Yes Recent Foreign Travel: No Contact w/Someone Who Travel: No Recent Infectious Disease Expo: No Recent Hopitalizations: No Physical Abuse: No Sexual Abuse: No Immunizations Up To Date Tetanus Booster (TDap): Unknown Seasonal Allergies Seasonal Allergies: No Past Medical History Surgeries: Yes (SMALL BOWEL RESECTION FOR CROHN'S) Abdominal, Bowel Surgery, Gallbladder, Tubal Ligation Respiratory: No Cardiac: No Neurological: No : No Last Menstrual Period: Aug 11, 2020 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 Disorders: No 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 oz. 54.586690hy; 21.00 BMI Method:Stated General Appearance: other (See HPI) Progress/Results/Core Measures Results/Orders Lab Results Laboratory Tests Test 08/18/20 17:02 08/18/20 17:15 Range/Units White Blood Count 6.7 4.3-11.0 10^3/uL Red Blood Count 4.18 3.80-5.11 10^6/uL Hemoglobin 11.2 L 11.5-16.0 g/dL Hematocrit 34 L 35-52 % Mean Corpuscular Volume 81 80-99 fL Mean Corpuscular Hemoglobin 27 25-34 pg Mean Corpuscular Hemoglobin Concent 33 32-36 g/dL Red Cell Distribution Width 14.3 10.0-14.5 % Platelet Count 258 130-400 10^3/uL Mean Platelet Volume 9.5 9.0-12.2 fL Immature Granulocyte % (Auto) 0 % Neutrophils (%) (Auto) 79 H 42-75 % Lymphocytes (%) (Auto) 15 12-44 % Monocytes (%) (Auto) 5 0-12 % Eosinophils (%) (Auto) 1 0-10 % Basophils (%) (Auto) 0 0-10 % Neutrophils # (Auto) 5.3 1.8-7.8 10^3/uL Lymphocytes # (Auto) 1.0 1.0-4.0 10^3/uL Monocytes # (Auto) 0.3 0.0-1.0 10^3/uL Eosinophils # (Auto) 0.1 0.0-0.3 10^3/uL Basophils # (Auto) 0.0 0.0-0.1 10^3/uL Immature Granulocyte # (Auto) 0.0 0.0-0.1 10^3/uL Sodium Level 130 L 135-145 MMOL/L Potassium Level 2.4 *L 3.6-5.0 MMOL/L Chloride Level 90 L 98-107 MMOL/L Carbon Dioxide Level 21 21-32 MMOL/L Anion Gap 19 H 5-14 MMOL/L Blood Urea Nitrogen 4 L 7-18 MG/DL Creatinine 0.74 0.60-1.30 MG/DL Estimat Glomerular Filtration Rate > 60 BUN/Creatinine Ratio 5 Glucose Level 84 70-105 MG/DL Calcium Level 7.7 L 8.5-10.1 MG/DL Corrected Calcium 8.1 L 8.5-10.1 MG/DL Total Bilirubin 0.3 0.1-1.0 MG/DL Aspartate Amino Transf (AST/SGOT) 21 5-34 U/L Alanine Aminotransferase (ALT/SGPT) 10 0-55 U/L Alkaline Phosphatase 85 40-136 U/L Total Protein 6.6 6.4-8.2 GM/DL Albumin 3.5 3.2-4.5 GM/DL Amylase Level 44 25-125 U/L TSH [facility] Testing 0.97 0.35-4.94 UIU/ML Salicylates Level < 5.0 L 5.0-20.0 MG/DL Acetaminophen Level < 10 L 10-30 UG/ML Serum Alcohol 41 H <10 MG/DL Urine Color YELLOW Urine Clarity CLEAR Urine pH 7.0 5-9 Urine Specific [place] <=1.005 1.016-1.022 Urine Protein NEGATIVE NEGATIVE Urine Glucose (UA) NEGATIVE NEGATIVE Urine Ketones NEGATIVE NEGATIVE Urine Nitrite NEGATIVE NEGATIVE Urine Bilirubin NEGATIVE NEGATIVE Urine Urobilinogen 0.2 < = 1.0 MG/DL Urine Leukocyte Esterase NEGATIVE NEGATIVE Urine RBC (Auto) 1+ H NEGATIVE Urine RBC NONE /HPF Urine WBC NONE /HPF Urine Squamous Epithelial Cells RARE /HPF Urine Crystals NONE /LPF Urine Bacteria NEGATIVE /HPF Urine Casts NONE /LPF Urine Mucus NEGATIVE /LPF Urine Culture Indicated NO Urine Test NEGATIVE NEGATIVE Urine Opiates Screen NEGATIVE NEGATIVE Urine Oxycodone Screen NEGATIVE NEGATIVE Urine Methadone Screen NEGATIVE NEGATIVE Urine Propoxyphene Screen NEGATIVE NEGATIVE Urine Barbiturates Screen NEGATIVE NEGATIVE Ur Tricyclic Antidepressants Screen NEGATIVE NEGATIVE Urine Phencyclidine Screen NEGATIVE NEGATIVE Urine Amphetamines Screen NEGATIVE NEGATIVE Urine Methamphetamines Screen NEGATIVE NEGATIVE Urine Benzodiazepines Screen POSITIVE H NEGATIVE Urine Cocaine Screen NEGATIVE NEGATIVE Urine Cannabinoids Screen NEGATIVE NEGATIVE My Orders Orders - JUDE MUNOZ APRN Ua Culture If Indicated (08/18/20 17:05) Cbc With Automated Diff (08/18/20 17:05) Comprehensive Metabolic Panel (08/18/20 17:05) Alcohol (08/18/20 17:05) Drug Screen Stat (Urine) (08/18/20 17:05) Acetaminophen (08/18/20 17:05) Salicylate (08/18/20 17:05) Ekg Tracing (08/18/20 17:05) Hcg,Qualitative Urine (08/18/20 17:05) Ed Iv/Invasive Line Start (08/18/20 17:05) Thyroid Analyzer (08/18/20 17:05) Amylase (08/18/20 17:05) Cbc No Diff (08/18/20 17:05) Monitor-Rhythm Ecg Trace Only (08/18/20 17:05) Ns Iv 1000 Ml (Sodium Chloride 0.9%) (08/18/20 17:05) Vital Signs/I&O 08/18/20 08/18/20 16:44 17:25 Temp 36.4 36.4 Pulse 115 115 Resp 24 24 B/P (MAP) 171/105 (127) 171/105 (127) Pulse Ox 100 100 Blood Pressure Mean: 127 Progress Progress Note : Progress Note Upon ED arrival, RN obtained history and contacted poison control. Poison control recommended ordering basic labs, drug screen, EtOH, Tylenol and Salicylate level, which were all ordered. However patient left without being seen by provider (myself) and before labs returned. Upon review of labs. Patient noted to be severely hypokalemic. Attempted to contact via phone number provided, but was directed to voicemail. Contact made with spouse at [phone] at this time, recommended patient return to ED for potassium replacement. Discussed this with the patient and she is agreeable with returning to the ER. Initial ECG Impression Date: Aug 18, 2020 Initial ECG Impression Time: 17:15 Initial ECG Rate: 93 Initial ECG Rhythm: Normal Sinus Comment Borderline T abnormalities, anterior leads. Departure Impression Primary Impression: Alcohol intoxication Disposition: AGAINST MEDICAL ADVICE Condition: Against Medical Advice Departure-Patient Inst. Referrals: [facility] (PCP) Primary Care Physician Patient Instructions: ALCOHOL AND SUBSTANCE ABUSE JUDE MUNOZ CIGAR PATCHER Aug 19, 2020 00:21
== END 2020-08-18 17:25 | disposition left against medical advice (07) ==
LOC: EDUNIT# 16:26 → ER 16:28
DX: F10.129 Alcohol abuse with intoxication, unspecified (principal); F31.9 Bipolar disorder, unspecified; F41.9 Anxiety disorder, unspecified; F17.210 Nicotine dependence, cigarettes, uncomplicated; F17.290 Nicotine dependence, other tobacco product, uncomplicated; Z88.8 Allergy status to other drugs, medicaments and biological substances
CPT/HCPCS: 80053; 80306; 81000; 82150; 84443; 84703; 85025; 85027; 93005; 93041; 99284; G0480 ×3; 36415; 80320; 80329

== ENCOUNTER 2020-08-19 14:34 | Emergency (ER) | payer BC | END 2020-08-19 15:20 | disposition left against medical advice (07) | LOC: EDUNIT# 14:34 → ER 14:36 | DX: R45.851 Suicidal ideations (principal); F10.99 Alcohol use, unspecified with unspecified alcohol-induced disorder ==

== ENCOUNTER 2020-08-20 12:16 | Emergency (ER) | payer BC ==
[~2020-08-20] VITALS: Ht 162.5 cm; Wt 54.4 kg
--- NOTE | 2020-08-20 12:20 | ED General ---
General Chief Complaint: Altered Mental Status Stated Complaint: OVERDOSE Source of Information: Patient Exam Limitations: No Limitations History of Present Illness Date Seen by Provider: Aug 20, 2020 Time Seen by Provider: 12:18 Initial Comments To ER by EMS after police found her stumbling around on the street. They report that she had several bottles of alcohol with clear liquid in them. She has been here daily for the past 3 days for alcohol related complaints. Timing/Duration: 1-2 Days Severity: Moderate Associated Systoms: Denies Symptoms Allergies and Home Medications Allergies Coded Allergies: vancomycin (Unverified Allergy, Severe, 05/11/10) metoclopramide (Unverified Adverse Reaction, Intermediate, 05/11/10) Uncoded Allergies: DARVOCET (Allergy, Intermediate, 05/11/10) Home Medications Chlordiazepoxide HCl 25 Mg Capsule, 25 MG PO UD Day 1 two tablets every 6 hours Day 2 one tablet every 6 hours Day 3 one tablet every 12 hours Day 4 one tablet at bedtime. Prescribed by: LOS HENSON on 08/17/20 0946 Olanzapine 10 Mg Tablet, 10 MG PO DAILY Prescribed by: IGOR MARIANO on 01/20/201957 Thiamine Mononitrate 100 Mg Tablet, 100 MG PO DAILY . Prescribed by: IGOR MARIANO on 08/16/202150 Patient Home Medication List Home Medication List Reviewed: Yes Review of Systems Review of Systems Constitutional: see HPI EENTM: see HPI Respiratory: no symptoms reported Cardiovascular: no symptoms reported Genitourinary: no symptoms reported Musculoskeletal: no symptoms reported Skin: no symptoms reported Psychiatric/Neurological: See HPI Hematologic/Lymphatic: No Symptoms Reported Past Swhxkja-Pjcpyg-Ahglff Hx Patient Social History Alcohol Use: Regular Use Number of Drinks Today: FF Alcohol Beverage of Choice: Vodka Recreational Drug Use: Yes (Alcohol ) Drug of Choice: vodka Smoking Status: Current Everyday Smoker Type Used: Cigarettes, Electronic/Vapor Former Smoker, Quit: Feb 25, 2018 2nd Hand Smoke Exposure: Yes Recent Hopitalizations: No Immunizations Up To Date Tetanus Booster (TDap): Unknown Seasonal Allergies Seasonal Allergies: No Past Medical History Surgeries: Yes (SMALL BOWEL RESECTION FOR CROHN'S) Abdominal, Bowel Surgery, Gallbladder, Tubal Ligation Respiratory: No Cardiac: No Neurological: No 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 Genitourinary: No Gastrointestinal: Yes (S/P SMALL BOWEL RESECTION; S/P CHOLECYSTECTOMY) Crohns Disease, Gall Bladder Disease Musculoskeletal: No Endocrine: Yes Hypothyroidsim HEENT: No Cancer: No Psychosocial: Yes (ALCOHOLISM) Anxiety, Bipolar, Depression Integumentary: No Blood Disorders: No Adverse Reaction/Blood Tranf: No Family Medical History No Pertinent Family Hx Physical Exam Vital Signs Vital Signs - First Documented 08/20/20 12:16 Temp 35.6 Pulse 103 Resp 20 B/P (MAP) 132/86 (101) Pulse Ox 94 O2 Delivery Room Air Capillary Refill : Height, Weight, BMI Height: 5'4.00" Weight: 120lbs. oz. 54.509766nu; 21.00 BMI Method:Stated General Appearance: No Apparent Distress, WD/WN, Other (Eyes open, looking around the room, slow to respond verbally. GCS 11.) HEENT: PERRL/EOMI, TMs Normal, Pale Conjunctivae (L) Neck: Full Range of Motion, Normal Inspection Respiratory: No Accessory Muscle Use, No Respiratory Distress Cardiovascular: Regular Rate, Rhythm, Normal Peripheral Pulses Gastrointestinal: Normal Bowel Sounds, Non Tender, Soft Extremity: Normal Capillary Refill, Normal Inspection Neurologic/Psychiatric: Alert Skin: Normal Color, Warm/Dry, Other (Subacute laceration of the volar aspect of the left wrist measuring 1.5 cm. Depth is to the subcutaneous tissue. Superficial abrasions down the volar aspect of each forearm.) Progress/Results/Core Measures Suspected Sepsis SIRS Temperature: Pulse: Respiratory Rate: Laboratory Tests 08/20/20 12:23: White Blood Count 5.5 Blood Pressure / Mean: Laboratory Tests 08/20/20 12:23: Creatinine 0.81, INR Comment 0.9, Platelet Count 249, Total Bilirubin 0.2 Results/Orders Lab Results Laboratory Tests Test 08/20/20 12:23 08/20/20 12:35 Range/Units White Blood Count 5.5 4.3-11.0 10^3/uL Red Blood Count 5.01 3.80-5.11 10^6/uL Hemoglobin 13.2 11.5-16.0 g/dL Hematocrit 40 35-52 % Mean Corpuscular Volume 81 80-99 fL Mean Corpuscular Hemoglobin 26 25-34 pg Mean Corpuscular Hemoglobin Concent 33 32-36 g/dL Red Cell Distribution Width 14.8 H 10.0-14.5 % Platelet Count 249 130-400 10^3/uL Mean Platelet Volume 9.8 9.0-12.2 fL Immature Granulocyte % (Auto) 0 % Neutrophils (%) (Auto) 67 42-75 % Lymphocytes (%) (Auto) 25 12-44 % Monocytes (%) (Auto) 6 0-12 % Eosinophils (%) (Auto) 2 0-10 % Basophils (%) (Auto) 0 0-10 % Neutrophils # (Auto) 3.7 1.8-7.8 10^3/uL Lymphocytes # (Auto) 1.4 1.0-4.0 10^3/uL Monocytes # (Auto) 0.3 0.0-1.0 10^3/uL Eosinophils # (Auto) 0.1 0.0-0.3 10^3/uL Basophils # (Auto) 0.0 0.0-0.1 10^3/uL Immature Granulocyte # (Auto) 0.0 0.0-0.1 10^3/uL Prothrombin Time 12.4 12.2-14.7 SEC INR Comment 0.9 0.8-1.4 Sodium Level 137 135-145 MMOL/L Potassium Level 2.5 *L 3.6-5.0 MMOL/L Chloride Level 98 98-107 MMOL/L Carbon Dioxide Level 22 21-32 MMOL/L Anion Gap 17 H 5-14 MMOL/L Blood Urea Nitrogen 4 L 7-18 MG/DL Creatinine 0.81 0.60-1.30 MG/DL Estimat Glomerular Filtration Rate > 60 BUN/Creatinine Ratio 5 Glucose Level 228 H 70-105 MG/DL Calcium Level 7.8 L 8.5-10.1 MG/DL Corrected Calcium 8.0 L 8.5-10.1 MG/DL Total Bilirubin 0.2 0.1-1.0 MG/DL Aspartate Amino Transf (AST/SGOT) 27 5-34 U/L Alanine Aminotransferase (ALT/SGPT) 12 0-55 U/L Alkaline Phosphatase 91 40-136 U/L Total Protein 7.0 6.4-8.2 GM/DL Albumin 3.7 3.2-4.5 GM/DL Serum Test, Qualitative NEGATIVE NEGATIVE Salicylates Level < 5.0 L 5.0-20.0 MG/DL Acetaminophen Level < 10 L 10-30 UG/ML Serum Alcohol 398 *H <10 MG/DL Urine Color YELLOW Urine Clarity CLEAR Urine pH 7.0 5-9 Urine Specific [place] <=1.005 1.016-1.022 Urine Protein NEGATIVE NEGATIVE Urine Glucose (UA) NEGATIVE NEGATIVE Urine Ketones NEGATIVE NEGATIVE Urine Nitrite NEGATIVE NEGATIVE Urine Bilirubin NEGATIVE NEGATIVE Urine Urobilinogen 0.2 < = 1.0 MG/DL Urine Leukocyte Esterase NEGATIVE NEGATIVE Urine RBC (Auto) TRACE-L NEGATIVE Urine RBC 0-2 /HPF Urine WBC 0-2 /HPF Urine Squamous Epithelial Cells 0-2 /HPF Urine Crystals NONE /LPF Urine Bacteria TRACE /HPF Urine Casts NONE /LPF Urine Mucus NEGATIVE /LPF Urine Culture Indicated NO Urine Opiates Screen NEGATIVE NEGATIVE Urine Oxycodone Screen NEGATIVE NEGATIVE Urine Methadone Screen NEGATIVE NEGATIVE Urine Propoxyphene Screen NEGATIVE NEGATIVE Urine Barbiturates Screen NEGATIVE NEGATIVE Ur Tricyclic Antidepressants Screen NEGATIVE NEGATIVE Urine Phencyclidine Screen NEGATIVE NEGATIVE Urine Amphetamines Screen NEGATIVE NEGATIVE Urine Methamphetamines Screen NEGATIVE NEGATIVE Urine Benzodiazepines Screen POSITIVE H NEGATIVE Urine Cocaine Screen NEGATIVE NEGATIVE Urine Cannabinoids Screen NEGATIVE NEGATIVE My Orders Orders - IGOR MARIANO FUR SCRAPER Ua Culture If Indicated (08/20/20 12:17) Cbc With Automated Diff (08/20/20 12:17) Protime With Inr (08/20/20 12:17) Comprehensive Metabolic Panel (08/20/20 12:17) Hcg,Qualitative Serum (08/20/20 12:17) Salicylate (08/20/20 12:17) Acetaminophen (08/20/20 12:17) Alcohol (08/20/20 12:17) Drug Screen Stat (Urine) (08/20/20 12:17) Ekg Tracing (08/20/20 12:17) Thiamine Injection (Vitamin B-1 Injectio (08/21/20 09:00) Ondansetron Injection (Zofran Injectio (08/20/20 12:45) Ondansetron Injection (Zofran Injectio (08/20/20 12:37) Potassium Cl 10meq/50ml Ivpb (Kcl 10 Meq (08/20/20 13:15) Magnesium Oxide Tablet (Mag Ox Tablet) (08/20/20 13:15) Potassium Chloride (Tablet) (Klor Con Ta (08/20/20 13:15) Medications Given in ED Current Medications Medications Dose Ordered Sig/Amaris Route Start Time Stop Time Status Last Admin Dose Admin Ondansetron HCl 8 mg ONCE ONCE IVP 08/20/20 12:45 08/20/20 12:46 DC 08/20/20 12:40 8 MG Vital Signs/I&O 08/20/20 08/20/20 12:16 13:10 Temp 35.6 Pulse 103 78 Resp 20 18 B/P (MAP) 132/86 (101) 123/89 Pulse Ox 94 99 O2 Delivery Room Air Capillary Refill : Departure Communication (Admissions) 1302-patient pulled out her IV and wants her Mckeon catheter removed as she was going to sign out against advice. I discussed with her the risks of leaving AGAINST MEDICAL ADVICE including arrhythmia and . She was able to repeat these risks back to me. She then spoke with her on the phone who convinced her to stay. I restarted a 22g IV in right EJ. 1312-Pt ripped her IV out again prior to starting potassium. States she leaving. Impression Primary Impression: Alcoholism Disposition: 07 AGAINST MEDICAL ADVICE Condition: Against Medical Advice Departure-Patient Inst. Referrals: [facility] (PCP/Family) Primary Care Physician IGOR MARIANO APRN Aug 20, 2020 12:20
[2020-08-20 12:31] LABS: BASOPHILS % (AUTO) 0 % (0-10); EOSINOPHILS # (AUTO) 0.1 10^3/uL (0.0-0.3); EOSINOPHILS % (AUTO) 2 % (0-10); HEMATOCRIT 40 % (35-52); HEMOGLOBIN 13.2 g/dL (11.5-16.0); LYMPHOCYTES # (AUTO) 1.4 10^3/uL (1.0-4.0); LYMPHOCYTES % (AUTO) 25 % (12-44); MEAN CORPUSCULAR HEMOGLOBIN 26 pg (25-34); MEAN CORPUSCULAR HGB CONC 33 g/dL (32-36); MEAN CORPUSCULAR VOLUME 81 fL (80-99); MEAN PLATELET VOLUME 9.8 fL (9.0-12.2); MONOCYTES # (AUTO) 0.3 10^3/uL (0.0-1.0); MONOCYTES % (AUTO) 6 % (0-12); NEUTROPHILS # (AUTO) 3.7 10^3/uL (1.8-7.8); NEUTROPHILS % (AUTO) 67 % (42-75); PLATELET COUNT 249 10^3/uL (130-400); WHITE BLOOD COUNT 5.5 10^3/uL (4.3-11.0)
[2020-08-20 12:37] LABS: BILIRUBIN,URINE NEGATIVE (NEGATIVE); CLARITY,URINE CLEAR; COLOR,URINE YELLOW; GLUCOSE, URINE (UA) NEGATIVE (NEGATIVE); KETONES,URINE NEGATIVE (NEGATIVE); LEUKOCYTE ESTERASE ,URINE NEGATIVE (NEGATIVE); NITRITE,URINE NEGATIVE (NEGATIVE); PROTEIN,URINE NEGATIVE (NEGATIVE)
[2020-08-20] MEDS ORDERED: ONDANSETRON 4 MG/2 ML (SDV) Z0FRAN ONE (12:37)
[2020-08-20 12:38] LABS: ALBUMIN 3.7 GM/DL (3.2-4.5); CHLORIDE 98 MMOL/L (98-107); SODIUM 137 MMOL/L (135-145)
[2020-08-20 12:40] LABS: CALCIUM 7.8 MG/DL (8.5-10.1)
[2020-08-20 12:41] LABS: GLUCOSE 228 MG/DL (70-105)
[2020-08-20 12:42] LABS: CARBON DIOXIDE 22 MMOL/L (21-32); INR 0.9 (0.8-1.4); PROTHROMBIN TIME PATIENT 12.4 SEC (12.2-14.7)
[2020-08-20 12:43] LABS: BILIRUBIN,TOTAL 0.2 MG/DL (0.1-1.0)
[2020-08-20 12:45] LABS: ALKALINE PHOSPHATASE 91 U/L (40-136); CREATININE SERUM 0.81 MG/DL (0.60-1.30); GFR ESTIMATED > 60
[2020-08-20] MEDS ORDERED: ONDANSETRON 4 MG/2 ML (SDV) Z0FRAN IVP ONE (12:45)
[2020-08-20 12:46] LABS: BUN/CREATININE RATIO 5
[2020-08-20 12:47] LABS: SALICYLATE < 5.0 MG/DL (5.0-20.0)
[2020-08-20 12:48] LABS: ALANINE AMINOTRANSFERASE 12 U/L (0-55)
--- NOTE | 2020-08-20 12:48 | NUR ---
pt sitting up in bed requesting catheter be removed at this time. deann omer informed. 300 ml clear yellow urine drained from bladder prior to removal. 1250- pt also grabbing at iv line and removing ecg leads. pt informed the iv is there to give her medication to help her symptoms. pt request it to be removed and started removing iv line dressing. IV removed and gauze placed. Pt removes hospital gown and starts getting dressed at this time. 1255-Pt reports she want to call her for a ride. Pt talks to pt on the phone and convinces her to stay.
[2020-08-20 12:52] LABS: ACETAMINOPHEN < 10 UG/ML (10-30); POTASSIUM 2.5 MMOL/L (3.6-5.0)
[2020-08-20 12:52] LABS: BACTERIA,URINE TRACE /HPF; RBC,URINE 0-2 /HPF; SQUAMOUS EPITHELIAL CELL,UR 0-2 /HPF; WBC,URINE 0-2 /HPF
[2020-08-20 13:00] LABS: AMPHETAMINE SCREEN, URINE NEGATIVE (NEGATIVE); BARBITURATE SCREEN URINE NEGATIVE (NEGATIVE); BENZODIAZEPINES SCREEN URINE POSITIVE (NEGATIVE); CANNABINOID SCREEN, URINE NEGATIVE (NEGATIVE); COCAINE SCREEN URINE NEGATIVE (NEGATIVE); METHADONE STAT NEGATIVE (NEGATIVE); METHAMPHETAMINE SCREEN URINE S NEGATIVE (NEGATIVE); OPIATE SCREEN URINE NEGATIVE (NEGATIVE); OXYCODONE STAT NEGATIVE (NEGATIVE); PROPOXYPHENE STAT NEGATIVE (NEGATIVE); TRICYCLIC ANTIDEPRESSANTS SCRE NEGATIVE (NEGATIVE)
--- NOTE | 2020-08-20 13:08 | NUR ---
pt pulling at lines, removing bp cuff. pt reports she is leaving and going home. Pt starts pulling at r EJ at this time and removes it. yamile placed. Pt signs ama form and is informed of risks of leaving. Pt then walks out of ED department. Dee Martin APRN informed.
[2020-08-20 13:10] VITALS: BP 123/89
[2020-08-20] MEDS ORDERED: KCL 10 MEQ TAB (MICRO K) PO ONE (13:15)
[2020-08-20] MEDS ORDERED: MAGNESIUM OXIDE (MAG-OX)400 MG TAB PO ONE (13:15)
[2020-08-20] MEDS ORDERED: POTASSIUM CL 10MEQ/50ML IVPB 50 ML IV SCH (13:15)
[2020-08-21] MEDS ORDERED: THIAMINE INJECTION 100 MG, FOLIC ACID INJECTION 1 MG, VITAMIN MULTI INJECTION 10 ML, MA... IV SCH ×5 (09:00)
== END 2020-08-20 13:10 | disposition left against medical advice (07) ==
LOC: EDUNIT# 12:16 → ER 12:17
DX: F10.20 Alcohol dependence, uncomplicated (principal); F17.210 Nicotine dependence, cigarettes, uncomplicated; F17.290 Nicotine dependence, other tobacco product, uncomplicated; F41.9 Anxiety disorder, unspecified; F31.9 Bipolar disorder, unspecified; Z88.8 Allergy status to other drugs, medicaments and biological substances
CPT/HCPCS: 80053; 80306; 81000; 84703; 85025; 85610; 93005; 99284; G0480 ×3; 36415; 80320; 80329

== ENCOUNTER 2020-08-23 18:57 | Emergency (ER) | payer BC ==
[~2020-08-23] VITALS: Ht 162.5 cm; Wt 52.6 kg
--- NOTE | 2020-08-23 19:05 | ED General ---
General Chief Complaint: Dizziness/Syncope Stated Complaint: N/V/INSOMNIA Source of Information: Patient Exam Limitations: No Limitations History of Present Illness Date Seen by Provider: Aug 23, 2020 Time Seen by Provider: 19:04 Initial Comments To ER by EMS from home with reports of insomnia nausea and vomiting. She believes her potassium is low because it was the other day and she has not had this resolved yet. She left AGAINST MEDICAL ADVICE. She denies having any alcohol to drink for 4 days. She is been living with her mother since then. Timing/Duration: 1-2 Days Severity: Moderate Associated Systoms: Denies Symptoms Allergies and Home Medications Allergies Coded Allergies: vancomycin (Unverified Allergy, Severe, 05/11/10) metoclopramide (Unverified Adverse Reaction, Intermediate, 05/11/10) Uncoded Allergies: DARVOCET (Allergy, Intermediate, 05/11/10) Home Medications Chlordiazepoxide HCl 25 Mg Capsule, 25 MG PO UD Day 1 two tablets every 6 hours Day 2 one tablet every 6 hours Day 3 one tablet every 12 hours Day 4 one tablet at bedtime. Prescribed by: LOS HENSON on 08/17/20 09 Diazepam 5 Mg Tablet, 5 MG PO UD 2 tablets twice a day tomorrow 1 tablet twice a day Wednesday 1 tablet once Wednesday Prescribed by: IGOR MARIANO on 08/23/202001 Olanzapine 10 Mg Tablet, 10 MG PO DAILY Prescribed by: IGOR MARIANO on 01/20/201957 Thiamine Mononitrate 100 Mg Tablet, 100 MG PO DAILY . Prescribed by: IGOR MARIANO on 08/16/202150 Patient Home Medication List Home Medication List Reviewed: Yes Review of Systems Review of Systems Constitutional: see HPI EENTM: see HPI Respiratory: no symptoms reported Cardiovascular: no symptoms reported Genitourinary: no symptoms reported Musculoskeletal: no symptoms reported Skin: no symptoms reported Psychiatric/Neurological: No Symptoms Reported Hematologic/Lymphatic: No Symptoms Reported Immunological/Allergic: no symptoms reported Past Ijemnkk-Bvwpyl-Vgptht Hx Patient Social History Alcohol Beverage of Choice: Vodka Drug of Choice: vodka Type Used: Cigarettes, Electronic/Vapor Former Smoker, Quit: Feb 25, 2018 2nd Hand Smoke Exposure: Yes Recent Hopitalizations: No Immunizations Up To Date Tetanus Booster (TDap): Unknown Seasonal Allergies Seasonal Allergies: No Past Medical History Surgeries: Yes (SMALL BOWEL RESECTION FOR CROHN'S) Abdominal, Bowel Surgery, Gallbladder, Tubal Ligation Respiratory: No Cardiac: No Neurological: No 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 Genitourinary: No Gastrointestinal: Yes (S/P SMALL BOWEL RESECTION; S/P CHOLECYSTECTOMY) Crohns Disease, Gall Bladder Disease Musculoskeletal: No Endocrine: Yes Hypothyroidsim HEENT: No Cancer: No Psychosocial: Yes (ALCOHOLISM) Anxiety, Bipolar, Depression Integumentary: No Blood Disorders: No Adverse Reaction/Blood Tranf: No Family Medical History No Pertinent Family Hx Physical Exam Vital Signs Vital Signs - First Documented 08/23/20 08/23/20 19:04 20:15 Temp 36.7 Pulse 94 Resp 14 B/P (MAP) 151/110 (124) Pulse Ox 97 O2 Delivery Room Air Capillary Refill : Height, Weight, BMI Height: 5'4.00" Weight: 120lbs. oz. 54.699876rt; 20.00 BMI Method:Stated General Appearance: No Apparent Distress, WD/WN, Anxious Eyes: Bilateral Eye Normal Inspection, Bilateral Eye PERRL, Bilateral Eye EOMI Neck: Full Range of Motion, Normal Inspection Respiratory: Lungs Clear, Normal Breath Sounds, No Accessory Muscle Use, No Respiratory Distress Gastrointestinal: Normal Bowel Sounds, Non Tender, Soft Extremity: Normal Capillary Refill, Normal Inspection Neurologic/Psychiatric: Alert, Oriented x3 Skin: Normal Color, Warm/Dry Progress/Results/Core Measures Suspected Sepsis SIRS Temperature: Pulse: Respiratory Rate: Laboratory Tests 08/23/20 18:52: White Blood Count 4.6 Blood Pressure / Mean: Laboratory Tests 08/23/20 18:52: Creatinine 0.76, Platelet Count 212, Total Bilirubin 0.3 Results/Orders Lab Results My Orders Orders - IGOR MARIANO APRN Diazepam Tablet (Valium Tablet) (08/23/20 20:00) Medications Given in ED Vital Signs/I&O Capillary Refill : Departure Communication (Admissions) Her potassium is quite a bit better today. She has never had seizures with alcohol withdrawal before. We will give diazepam 10 mg here then discharged home with a prescription for diazepam. Impression Primary Impression: Alcohol withdrawal Disposition: 01 HOME, SELF-CARE Condition: Stable Departure-Patient Inst. Decision time for Depature: 19:59 Referrals: [facility] (PCP/Family) Primary Care Physician Patient Instructions: Alcohol Withdrawal Scripts Diazepam (Diazepam) 5 Mg Tablet 5 MG PO UD, #7 TAB 2 tablets twice a day tomorrow 1 tablet twice a day Wednesday 1 tablet once Wednesday Prov: IGOR MARIANO APRN 08/23/20 IGOR MARIANO APRN Aug 23, 2020 19:05
[2020-08-23] MEDS ORDERED: KCL 10 MEQ TAB (MICRO K) PO ONE (19:15)
[2020-08-23] MEDS ORDERED: POTASSIUM CL 10MEQ/50ML IVPB 50 ML IV SCH (19:15)
[2020-08-23] MEDS ORDERED: PROMETHAZINE INJ 25 MG/ML (PHENERGAN) AMP IVP ONE (19:15)
[2020-08-23] MEDS ORDERED: NS IV 1000 ML 1,000 ML IV SCH (19:15)
[2020-08-23 19:32] LABS: BASOPHILS % (AUTO) 0 % (0-10); EOSINOPHILS % (AUTO) 1 % (0-10); HEMATOCRIT 33 % (35-52); HEMOGLOBIN 10.7 g/dL (11.5-16.0); LYMPHOCYTES # (AUTO) 0.8 10^3/uL (1.0-4.0); LYMPHOCYTES % (AUTO) 18 % (12-44); MEAN CORPUSCULAR HEMOGLOBIN 27 pg (25-34); MEAN CORPUSCULAR HGB CONC 32 g/dL (32-36); MEAN CORPUSCULAR VOLUME 83 fL (80-99); MEAN PLATELET VOLUME 9.9 fL (9.0-12.2); MONOCYTES # (AUTO) 0.3 10^3/uL (0.0-1.0); MONOCYTES % (AUTO) 7 % (0-12); NEUTROPHILS # (AUTO) 3.4 10^3/uL (1.8-7.8); NEUTROPHILS % (AUTO) 74 % (42-75); PLATELET COUNT 212 10^3/uL (130-400); WHITE BLOOD COUNT 4.6 10^3/uL (4.3-11.0)
[2020-08-23 19:34] LABS: BILIRUBIN,URINE NEGATIVE (NEGATIVE); CLARITY,URINE CLEAR; COLOR,URINE YELLOW; GLUCOSE, URINE (UA) NEGATIVE (NEGATIVE); KETONES,URINE NEGATIVE (NEGATIVE); LEUKOCYTE ESTERASE ,URINE TRACE (NEGATIVE); NITRITE,URINE NEGATIVE (NEGATIVE); PROTEIN,URINE NEGATIVE (NEGATIVE)
[2020-08-23 19:40] LABS: BACTERIA,URINE TRACE /HPF; SQUAMOUS EPITHELIAL CELL,UR 0-2 /HPF; WBC,URINE RARE /HPF
[2020-08-23 19:46] LABS: ALBUMIN 3.4 GM/DL (3.2-4.5); CHLORIDE 105 MMOL/L (98-107); POTASSIUM 3.4 MMOL/L (3.6-5.0); SODIUM 137 MMOL/L (135-145)
[2020-08-23 19:47] LABS: CALCIUM 8.2 MG/DL (8.5-10.1)
[2020-08-23 19:48] LABS: GLUCOSE 120 MG/DL (70-105); TOTAL PROTEIN 6.6 GM/DL (6.4-8.2)
[2020-08-23 19:49] LABS: CARBON DIOXIDE 19 MMOL/L (21-32)
[2020-08-23 19:50] LABS: BILIRUBIN,TOTAL 0.3 MG/DL (0.1-1.0)
[2020-08-23 19:52] LABS: ALKALINE PHOSPHATASE 80 U/L (40-136); CREATININE SERUM 0.76 MG/DL (0.60-1.30); GFR ESTIMATED > 60
[2020-08-23 19:53] LABS: BUN/CREATININE RATIO 7
[2020-08-23 19:55] LABS: ALANINE AMINOTRANSFERASE 11 U/L (0-55); MAGNESIUM 1.7 MG/DL (1.6-2.4)
[2020-08-23] MEDS ORDERED: DIAZEPAM 5 MG (VALIUM) TABLET PO ONE (20:00)
[2020-08-23] MEDS ORDERED: DIAZ5TAB49 PO (20:01)
[2020-08-23 20:15] VITALS: BP 160/108
== END 2020-08-23 20:15 | disposition home or self-care (01) ==
LOC: EDUNIT# 18:57 → ER 19:01
DX: F10.239 Alcohol dependence with withdrawal, unspecified (principal); F41.9 Anxiety disorder, unspecified; F31.9 Bipolar disorder, unspecified; Z87.891 Personal history of nicotine dependence; Z88.8 Allergy status to other drugs, medicaments and biological substances
CPT/HCPCS: 80053; 81000; 83735; 85025; 99284; G0480; 36415; 80320; 93005

== ENCOUNTER → 2020-09-09 | Outpatient (CLI) | payer BC ==
[~2020-09-09] MED LIST changes: +DIAZ5TAB49 PO
[2020-09-09 12:19] LABS: ABSOLUTE RETIC # 70 10e9/uL (24-90); BASOPHILS % (AUTO) 1 % (0-10); EOSINOPHILS # (AUTO) 0.1 10^3/uL (0.0-0.3); EOSINOPHILS % (AUTO) 1 % (0-10); HEMATOCRIT 37 % (35-52); HEMOGLOBIN 11.3 g/dL (11.5-16.0); LYMPHOCYTES # (AUTO) 1.2 10^3/uL (1.0-4.0); LYMPHOCYTES % (AUTO) 23 % (12-44); MEAN CORPUSCULAR HEMOGLOBIN 27 pg (25-34); MEAN CORPUSCULAR HGB CONC 31 g/dL (32-36); MEAN CORPUSCULAR VOLUME 87 fL (80-99); MEAN PLATELET VOLUME 9.2 fL (9.0-12.2); MONOCYTES # (AUTO) 0.4 10^3/uL (0.0-1.0); MONOCYTES % (AUTO) 8 % (0-12); NEUTROPHILS # (AUTO) 3.6 10^3/uL (1.8-7.8); NEUTROPHILS % (AUTO) 68 % (42-75); PLATELET COUNT 444 10^3/uL (130-400); RETICULOCYTE % 1.66 % (0.50-2.40); WHITE BLOOD COUNT 5.4 10^3/uL (4.3-11.0)
[2020-09-09 13:06] LABS: ANISOCYTOSIS SLIGHT; BAND NEUTROPHILS 5 %; BASOPHILS % (MANUAL) 0 %; EOSINOPHILS % (MANUAL) 0 %; LYMPHOCYTES % (MANUAL) 18 %; MONOCYTES % (MANUAL) 12 %; NEUTROPHILS % (MANUAL) 65 %
== END ==
LOC: LAB 11:13
PROVIDERS: ATTEND Nurse Practitioner Family
DX: R79.89 Other specified abnormal findings of blood chemistry (principal)
CPT/HCPCS: 36415; 85007; 85027; 85045; 85055

== ENCOUNTER 2022-04-03 19:14 | Emergency (ER) | payer BC ==
[~2022-04-03] VITALS: Ht 162.6 cm; Wt 52.2 kg
[~2022-04-03 19:14] MED LIST changes: +CYCL10TA25 PO
[2022-04-03] MEDS ORDERED: RABIES IMMUNE GLOBULIN (KEDRAB) 1,500 UNITS/10 ML IM ONE (19:30)
[2022-04-03] MEDS ORDERED: RABIES VACCINE HUMAN DIPL CELL 1 ML/2.5 UNITS SYR IM ONE (19:30)
--- NOTE | 2022-04-03 19:53 | ED General ---
General Chief Complaint: General Problems/Pain Stated Complaint: NEEDS RABIES SHOT Nursing Triage Note: PT AMBULATE TO TRIAGE FOR RABIES VACCINE. PT SENT FROM [facility] AFTER BEING EVALUATED FOR A BITE FROM A RACCOON. Source of Information: Patient Exam Limitations: No Limitations History of Present Illness Date Seen by Provider: Apr 03, 2022 Time Seen by Provider: 19:49 Initial Comments To ER for rabies vaccine. She was bitten by a raccoon this morning while feeding some stray cats outside. She did not see the mother raccoon there, there were some baby raccoons and the mother raccoon snuck out of the bushes and attacked her. She has an abrasion/puncture wound right lower leg. She was seen at [facility] and had her tetanus updated and given a prescription for Augmentin. Timing/Duration: 4-6 Hours Severity: Mild Associated Systoms: Denies Symptoms Allergies and Home Medications Allergies Coded Allergies: vancomycin (Unverified Allergy, Severe, 05/11/10) metoclopramide (Unverified Adverse Reaction, Intermediate, 05/11/10) Uncoded Allergies: DARVOCET (Allergy, Intermediate, 05/11/10) Patient Home Medication List Home Medication List Reviewed: Yes Alprazolam (Alprazolam) 0.5 Mg Tablet, (Reported) Entered as Reported by: CHIKA PERAZA on 01/20/20510 Chlordiazepoxide HCl (Chlordiazepoxide HCl) 25 Mg Capsule, 25 MG PO UD Prescribed by: LOS HENSON on 08/17/20 0946 Diazepam (Diazepam) 5 Mg Tablet, 5 MG PO UD Prescribed by: IGOR MARIANO on 08/23/202001 Hydrocodone/Acetaminophen (Hydrocodone-Acetamin 10-325 mg) 1 Each Tablet, (Reported) Entered as Reported by: CHIKA PERAZA on 01/20/20510 [place] Carbonate ([place] Carbonate) 150 Mg Capsule, Unknown Dose PO, (Reported) Entered as Reported by: CHIKA PERAZA on 01/02/18204 Olanzapine (Zyprexa) 10 Mg Tablet, 10 MG PO DAILY Prescribed by: IGOR MARIANO on 01/20/201957 Thiamine Mononitrate (Vitamin B-1) 100 Mg Tablet, 100 MG PO DAILY Prescribed by: IGOR MARIANO on 08/16/202150 Review of Systems Review of Systems Constitutional: see HPI EENTM: see HPI Respiratory: no symptoms reported Cardiovascular: no symptoms reported Genitourinary: no symptoms reported Musculoskeletal: no symptoms reported Skin: no symptoms reported Psychiatric/Neurological: No Symptoms Reported Past Eayubqp-Jbbjgn-Qkypeg Hx Patient Social History Tobacco Use?: No Smoking Status: Never a Smoker Smokeless Tobacco Frequency: Never a User Use of E-Cig and/or Vaping dev: Yes E-Cig or Vaping type used: Nicotine Use of E-Cig and/or Vaping Angel: Current Everyday User Substance use?: No Alcohol Use?: No Pt feels they are or have been: No Immunizations Up To Date Tetanus Booster (TDap): Unknown COVID19 Vaccine 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: MODERNA Seasonal Allergies Seasonal Allergies: No Past Medical History Surgeries: Yes (SMALL BOWEL RESECTION FOR CROHN'S) Abdominal, Bowel Surgery, Gallbladder, Tubal Ligation Respiratory: No Cardiac: No Neurological: No 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 Disorders: No 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 History: Tubal Ligation Genitourinary: No Gastrointestinal: Yes (S/P SMALL BOWEL RESECTION; S/P CHOLECYSTECTOMY) Crohns Disease, Gall Bladder Disease Musculoskeletal: No Endocrine: Yes Hypothyroidsim HEENT: No Cancer: No Psychosocial: Yes (ALCOHOLISM) Anxiety, Bipolar, Depression Integumentary: No Blood Disorders: No Adverse Reaction/Blood Tranf: No Family Medical History No Pertinent Family Hx Physical Exam Vital Signs Vital Signs - First Documented 04/03/22 19:21 Temp 35.8 Pulse 94 Resp 17 B/P (MAP) 119/64 (82) O2 Delivery Room Air Capillary Refill : Less Than 3 Seconds Height, Weight, BMI Height: 5'4.00" Weight: 120lbs. oz. 54.342780lj; 19.00 BMI Method:Stated General Appearance: No Apparent Distress, WD/WN Eyes: Bilateral Eye Normal Inspection, Bilateral Eye PERRL, Bilateral Eye EOMI Neck: Full Range of Motion, Normal Inspection Respiratory: No Accessory Muscle Use, No Respiratory Distress Cardiovascular: Regular Rate, Rhythm, Normal Peripheral Pulses Gastrointestinal: Normal Bowel Sounds, Non Tender, Soft Extremity: Normal Capillary Refill, Normal Inspection, Other (2 superficial abrasions to the right lateral lower leg. Around this 3 mL of the total 7 mL (total 1045 international units rabies immunoglobulin) was infiltrated around this. The remaining 4 mL was injected into the right vastus lateralis. Rabies vaccine was injected into the right deltoid by me.) Neurologic/Psychiatric: Alert, Oriented x3 Skin: Normal Color, Warm/Dry Progress/Results/Core Measures Suspected Sepsis SIRS Temperature: Pulse: 94 Respiratory Rate: 17 Blood Pressure 119 /64 Mean: 82 Results/Orders My Orders Orders - IGOR MARIANO APRN Rabies Immune Globulin/Pf 10ml (Kedrab 1 (04/03/22 19:30) Rabies Vaccine Human Dipl Cell (Rabavert (04/03/22 19:30) Vital Signs/I&O 04/03/22 19:21 Temp 35.8 Pulse 94 Resp 17 B/P (MAP) 119/64 (82) O2 Delivery Room Air Capillary Refill : Less Than 3 Seconds Blood Pressure Mean: 82 Departure Impression Primary Impression: Raccoon bite Additional Impression: Rabies, need for prophylactic vaccination against Disposition: HOME, SELF-CARE Condition: Stable Departure-Patient Inst. Decision time for Depature: 19:52 Referrals: [facility] (PCP/Family) Primary Care Physician Patient Instructions: Animal Bites ED Add. Discharge Instructions: 1. Antibiotics as directed. Tylenol and ibuprofen for pain. Return to ER for any concerns. Otherwise return to the hospital on Wednesday the at any time during normal business hours for rabies vaccine. Then return again on the , and May 01. All discharge instructions reviewed with patient and/or family. Voiced understanding. IGOR MARIANO APRN Apr 03, 2022 19:53
[2022-04-03 20:00] VITALS: BP 134/76
== END 2022-04-03 20:00 | disposition home or self-care (01) ==
LOC: EDUNIT# 19:14 → ER 19:17
DX: S81.851A Open bite, right lower leg, initial encounter (principal); Z29.14 Encounter for prophylactic rabies immune globulin; Z23 Encounter for immunization; F17.290 Nicotine dependence, other tobacco product, uncomplicated; W55.51XA Bitten by raccoon, initial encounter
CPT/HCPCS: 90675; 90676; 99284

== ENCOUNTER 2022-04-17 13:56 | Outpatient (RCR) | payer BC ==
[2022-04-07 11:50] VITALS: BP 108/72
[2022-04-10 14:25] VITALS: BP 120/81
[~2022-04-17] VITALS: Ht 170.1 cm; Wt 52.2 kg
[~2022-04-17 13:56] MED LIST changes: +RABIES VACCINE HUMAN DIPL CELL 1 ML/2.5 UNITS SYR INJ ONE
[2022-04-17 14:10] VITALS: BP 117/80
[2022-05-01] MEDS ORDERED: RABIES VACCINE HUMAN DIPL CELL 1 ML/2.5 UNITS SYR INJ ONE (12:15)
== END 2022-04-26 | disposition home or self-care (01) ==
LOC: SDC 13:56
PROVIDERS: ATTEND Emergency Medicine
DX: Z29.14 Encounter for prophylactic rabies immune globulin (principal); W55.51XA Bitten by raccoon, initial encounter
CPT/HCPCS: 90675; 96372

== ENCOUNTER 2022-07-29 18:20 | Emergency (ER) | payer BC ==
[~2022-07-29] VITALS: Ht 162 cm; Wt 49.0 kg
[2022-07-29 18:20] VITALS: BP 127/81
[~2022-07-29 18:20] MED LIST changes: -RABIES VACCINE HUMAN DIPL CELL 1 ML/2.5 UNITS SYR INJ ONE
--- NOTE | 2022-07-29 18:32 | ED Psychosocial ---
General Chief Complaint: Psych/Social Disorder Stated Complaint: DEPRESSION Nursing Triage Note: PT TOOK X3 0.5MG XANAX AT [facility] 1748 IN ATTEMPT TO KILL HERSELF. PT ALSO STATES SHE HAS BEEN DRINKING VODKA TODAY. PT HAS AN ABRASION ON HER CHIN AND STATES SHE FELL THE OTHER DAY CAUSING IT. History of Present Illness Date Seen by Provider: Jul 29, 2022 Time Seen by Provider: 18:32 Initial Comments Patient presents to the emergency department for alcohol intoxication and suicidal ideations. States that she has been drinking vodka today. Has an abrasion on her chin from a fall a few days ago. Was reported that she took 3 0.5mg Xanax to hurt herself. When patient is asked about this she denies that it was in an attempt to hurt herself. Denies having a specific plan at this time. Denies suicidal or homicidal ideations at this time. Timing/Duration: constant Severity: mild Associated Symptoms: ingestion (alcohol), suicidal ideation Allergies and Home Medications Allergies Coded Allergies: vancomycin (Unverified Allergy, Severe, 05/11/10) metoclopramide (Unverified Adverse Reaction, Intermediate, 05/11/10) Uncoded Allergies: DARVOCET (Allergy, Intermediate, 05/11/10) Patient Home Medication List Home Medication List Reviewed: Yes Alprazolam (Alprazolam) 0.5 Mg Tablet, (Reported) Entered as Reported by: CHIKA PERAZA on 01/20/20510 Chlordiazepoxide HCl (Chlordiazepoxide HCl) 25 Mg Capsule, 25 MG PO UD Prescribed by: LOS HENSON on 08/17/2046 Diazepam (Diazepam) 5 Mg Tablet, 5 MG PO UD Prescribed by: IGOR MARIANO on 08/23/202001 Hydrocodone/Acetaminophen (Hydrocodone-Acetamin 10-325 mg) 1 Each Tablet, (Reported) Entered as Reported by: CHIKA PERAZA on 01/20/20510 [place] Carbonate ([place] Carbonate) 150 Mg Capsule, Unknown Dose PO, (Reported) Entered as Reported by: CHIKA PERAZA on 01/02/18204 Olanzapine (Zyprexa) 10 Mg Tablet, 10 MG PO DAILY Prescribed by: IGOR MARIANO on 01/20/201957 Thiamine Mononitrate (Vitamin B-1) 100 Mg Tablet, 100 MG PO DAILY Prescribed by: IGOR MARIANO on 08/16/202150 Review of Systems Constitutional: No chills, No fever EENTM: No ear pain, No mouth pain, No nose congestion, No throat pain Respiratory: No cough, No short of breath Cardiovascular: No chest pain, No palpitations Gastrointestinal: No abdominal pain, No nausea, No vomiting Musculoskeletal: No joint pain, No joint swelling Skin: No pruritus, No rash All Other Systems Reviewed Negative Unless Noted: Yes Past Acvsakj-Xhpoyu-Rjtqmg Hx Patient Social History Tobacco Use?: Yes Use of E-Cig and/or Vaping dev: Yes Substance use?: No Alcohol Use?: Yes Alcohol type: Hard Liquor Alcohol Frequency: Couple times a week Immunizations Up To Date Tetanus Booster (TDap): Unknown Third COVID19 Vaccination Date: UNKNOWN COVID19 Vaccine 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: UNKNOWN Seasonal Allergies Seasonal Allergies: No Past Medical History Surgeries: Yes (SMALL BOWEL RESECTION FOR CROHN'S) Abdominal, Bowel Surgery, Gallbladder, Tubal Ligation Respiratory: No Cardiac: No Neurological: No 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 Disorders: No 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 Genitourinary: No Gastrointestinal: Yes (S/P SMALL BOWEL RESECTION; S/P CHOLECYSTECTOMY) Crohns Disease, Gall Bladder Disease Musculoskeletal: No Endocrine: Yes Hypothyroidsim HEENT: No Cancer: No Psychosocial: Yes (ALCOHOLISM) Anxiety, Bipolar, Depression Integumentary: No Blood Disorders: No Adverse Reaction/Blood Tranf: No Family Medical History Reviewed Nursing Family Hx No Pertinent Family Hx Physical Exam Vital Signs - First Documented 07/29/22 18:20 Temp 36.8 Pulse 105 Resp 16 B/P (MAP) 127/81 (96) Pulse Ox 97 O2 Delivery Room Air Capillary Refill : Less Than 3 Seconds Height, Weight, BMI Height: 5'4.00" Weight: 120lbs. oz. 54.475794ps; 18.00 BMI Method:Stated General Appearance: WD/WN, no apparent distress, other (smells ETOH) Neck: non-tender, full range of motion, supple, normal inspection Respiratory: chest non-tender, lungs clear, normal breath sounds, no respiratory distress, no accessory muscle use Cardiovascular: regular rate, rhythm, no edema Gastrointestinal: normal bowel sounds, non tender, soft, no organomegaly Extremities: normal range of motion, non-tender, normal inspection Neurologic/Psychiatric: alert, depressed affect Skin: normal color, warm/dry Progress/Results/Core Measures Results/Orders Lab Results Laboratory Tests Test 07/29/22 18:43 07/29/22 18:55 Range/Units Urine Color YELLOW Urine Clarity CLEAR Urine pH 6.5 5-9 Urine Specific [place] <=1.005 1.016-1.022 Urine Protein NEGATIVE NEGATIVE Urine Glucose (UA) NEGATIVE NEGATIVE Urine Ketones NEGATIVE NEGATIVE Urine Nitrite NEGATIVE NEGATIVE Urine Bilirubin NEGATIVE NEGATIVE Urine Urobilinogen 0.2 < = 1.0 MG/DL Urine Leukocyte Esterase NEGATIVE NEGATIVE Urine RBC (Auto) TRACE-I H NEGATIVE Urine RBC RARE /HPF Urine WBC NONE /HPF Urine Squamous Epithelial Cells NONE /HPF Urine Crystals NONE /LPF Urine Bacteria TRACE /HPF Urine Casts NONE /LPF Urine Mucus NEGATIVE /LPF Urine Culture Indicated NO Urine Opiates Screen NEGATIVE NEGATIVE Urine Oxycodone Screen NEGATIVE NEGATIVE Urine Methadone Screen NEGATIVE NEGATIVE Urine Propoxyphene Screen NEGATIVE NEGATIVE Urine Barbiturates Screen NEGATIVE NEGATIVE Ur Tricyclic Antidepressants Screen NEGATIVE NEGATIVE Urine Phencyclidine Screen NEGATIVE NEGATIVE Urine Amphetamines Screen NEGATIVE NEGATIVE Urine Methamphetamines Screen NEGATIVE NEGATIVE Urine Benzodiazepines Screen POSITIVE H NEGATIVE Urine Cocaine Screen NEGATIVE NEGATIVE Urine Cannabinoids Screen NEGATIVE NEGATIVE White Blood Count 8.3 4.3-11.0 10^3/uL Red Blood Count 4.72 3.80-5.11 10^6/uL Hemoglobin 12.4 11.5-16.0 g/dL Hematocrit 37 35-52 % Mean Corpuscular Volume 79 L 80-99 fL Mean Corpuscular Hemoglobin 26 25-34 pg Mean Corpuscular Hemoglobin Concent 33 32-36 g/dL Red Cell Distribution Width 14.4 10.0-14.5 % Platelet Count 368 130-400 10^3/uL Mean Platelet Volume 9.2 9.0-12.2 fL Immature Granulocyte % (Auto) 0 % Neutrophils (%) (Auto) 74 42-75 % Lymphocytes (%) (Auto) 20 12-44 % Monocytes (%) (Auto) 6 0-12 % Eosinophils (%) (Auto) 0 0-10 % Basophils (%) (Auto) 1 0-10 % Neutrophils # (Auto) 6.1 1.8-7.8 10^3/uL Lymphocytes # (Auto) 1.6 1.0-4.0 10^3/uL Monocytes # (Auto) 0.5 0.0-1.0 10^3/uL Eosinophils # (Auto) 0.0 0.0-0.3 10^3/uL Basophils # (Auto) 0.0 0.0-0.1 10^3/uL Immature Granulocyte # (Auto) 0.0 0.0-0.1 10^3/uL Sodium Level 137 135-145 MMOL/L Potassium Level 3.1 L 3.6-5.0 MMOL/L Chloride Level 99 98-107 MMOL/L Carbon Dioxide Level 23 21-32 MMOL/L Anion Gap 15 H 5-14 MMOL/L Blood Urea Nitrogen 5 L 7-18 MG/DL Creatinine 0.70 0.60-1.30 MG/DL Estimat Glomerular Filtration Rate 110 BUN/Creatinine Ratio 7 Glucose Level 91 70-105 MG/DL Calcium Level 8.7 8.5-10.1 MG/DL Corrected Calcium 9.2 8.5-10.1 MG/DL Total Bilirubin 0.5 0.1-1.0 MG/DL Aspartate Amino Transf (AST/SGOT) 30 5-34 U/L Alanine Aminotransferase (ALT/SGPT) 14 0-55 U/L Alkaline Phosphatase 84 40-136 U/L Total Protein 6.7 6.4-8.2 GM/DL Albumin 3.4 3.2-4.5 GM/DL Salicylates Level < 5.0 L 5.0-20.0 MG/DL Acetaminophen Level < 10 L 10-30 UG/ML Serum Alcohol 191 H <10 MG/DL My Orders Orders - COLTEN LACEY APRN Ua Culture If Indicated (07/29/22 18:33) Cbc With Automated Diff (07/29/22 18:33) Comprehensive Metabolic Panel (07/29/22 18:33) Alcohol (07/29/22 18:33) Drug Screen Stat (Urine) (07/29/22 18:33) Acetaminophen (07/29/22 18:33) Salicylate (07/29/22 18:33) Ekg Tracing (07/29/22 18:33) Ns Iv 1000 Ml (Sodium Chloride 0.9%) (07/29/22 18:45) Vital Signs/I&O 07/29/22 18:20 Temp 36.8 Pulse 105 Resp 16 B/P (MAP) 127/81 (96) Pulse Ox 97 O2 Delivery Room Air Blood Pressure Mean: 96 Progress Progress Note : Progress Note Patient presents to the emergency department with alcohol intoxication and suicidal ideations. Will obtain labs and have patient screened if medically cleared. 1914: Patient requesting to leave at this time. Instructed that she needs to stay here in the emergency department until we get labs back because she had thoughts of wanting to kill herself. She currently denies those thoughts. But due to previous statements she needs to stay in the emergency department until she is screened. Could all be induced at this time due to alcohol consumption. Alcohol level and electrolytes remain pending. 1951: Patient ran out the department and eloped. [place] police department was called to let them know the patient eloped from the department. Initial ECG Impression Date: Jul 29, 2022 Initial ECG Impression Time: 18:39 Initial ECG Rate: 95 Initial ECG Rhythm: Normal Sinus Departure Impression Primary Impression: Eloped from emergency department Disposition: 07 AGAINST MEDICAL ADVICE Condition: Against Medical Advice (eloped) Departure-Patient Inst. Decision time for Depature: 19:52 Referrals: [facility] (PCP/Family) Primary Care Physician COLTEN LACEY APRN Jul 29, 2022 18:32
[2022-07-29] MEDS ORDERED: NS IV 1000 ML 1,000 ML IV SCH (18:45)
[2022-07-29 18:55] LABS: BILIRUBIN,URINE NEGATIVE (NEGATIVE); CLARITY,URINE CLEAR; COLOR,URINE YELLOW; GLUCOSE, URINE (UA) NEGATIVE (NEGATIVE); KETONES,URINE NEGATIVE (NEGATIVE); LEUKOCYTE ESTERASE ,URINE NEGATIVE (NEGATIVE); NITRITE,URINE NEGATIVE (NEGATIVE); PH,URINE 6.5 (5-9); PROTEIN,URINE NEGATIVE (NEGATIVE)
[2022-07-29 19:04] LABS: BASOPHILS % (AUTO) 1 % (0-10); EOSINOPHILS % (AUTO) 0 % (0-10); HEMATOCRIT 37 % (35-52); HEMOGLOBIN 12.4 g/dL (11.5-16.0); LYMPHOCYTES # (AUTO) 1.6 10^3/uL (1.0-4.0); LYMPHOCYTES % (AUTO) 20 % (12-44); MEAN CORPUSCULAR HEMOGLOBIN 26 pg (25-34); MEAN CORPUSCULAR HGB CONC 33 g/dL (32-36); MEAN CORPUSCULAR VOLUME 79 fL (80-99); MEAN PLATELET VOLUME 9.2 fL (9.0-12.2); MONOCYTES # (AUTO) 0.5 10^3/uL (0.0-1.0); MONOCYTES % (AUTO) 6 % (0-12); NEUTROPHILS # (AUTO) 6.1 10^3/uL (1.8-7.8); NEUTROPHILS % (AUTO) 74 % (42-75); PLATELET COUNT 368 10^3/uL (130-400); WHITE BLOOD COUNT 8.3 10^3/uL (4.3-11.0)
[2022-07-29 19:09] LABS: BACTERIA,URINE TRACE /HPF; RBC,URINE RARE /HPF
[2022-07-29 19:10] LABS: AMPHETAMINE SCREEN, URINE NEGATIVE (NEGATIVE); BARBITURATE SCREEN URINE NEGATIVE (NEGATIVE); BENZODIAZEPINES SCREEN URINE POSITIVE (NEGATIVE); CANNABINOID SCREEN, URINE NEGATIVE (NEGATIVE); COCAINE SCREEN URINE NEGATIVE (NEGATIVE); METHADONE STAT NEGATIVE (NEGATIVE); OPIATE SCREEN URINE NEGATIVE (NEGATIVE); OXYCODONE STAT NEGATIVE (NEGATIVE); PROPOXYPHENE STAT NEGATIVE (NEGATIVE); TRICYCLIC ANTIDEPRESSANTS SCRE NEGATIVE (NEGATIVE)
[2022-07-29 19:20] LABS: ALBUMIN 3.4 GM/DL (3.2-4.5)
[2022-07-29 19:22] LABS: CALCIUM 8.7 MG/DL (8.5-10.1)
[2022-07-29 19:23] LABS: GLUCOSE 91 MG/DL (70-105); TOTAL PROTEIN 6.7 GM/DL (6.4-8.2)
[2022-07-29 19:24] LABS: CARBON DIOXIDE 23 MMOL/L (21-32); CHLORIDE 99 MMOL/L (98-107); POTASSIUM 3.1 MMOL/L (3.6-5.0); SODIUM 137 MMOL/L (135-145)
[2022-07-29 19:25] LABS: BILIRUBIN,TOTAL 0.5 MG/DL (0.1-1.0)
[2022-07-29 19:27] LABS: ALKALINE PHOSPHATASE 84 U/L (40-136); GFR ESTIMATED 110
[2022-07-29 19:28] LABS: BUN/CREATININE RATIO 7
[2022-07-29 19:29] LABS: SALICYLATE < 5.0 MG/DL (5.0-20.0)
[2022-07-29 19:30] LABS: ALANINE AMINOTRANSFERASE 14 U/L (0-55)
[2022-07-29 19:37] LABS: ACETAMINOPHEN < 10 UG/ML (10-30)
== END 2022-07-29 19:53 | disposition left against medical advice (07) ==
LOC: EDUNIT# 18:20 → ER 18:21
DX: R45.851 Suicidal ideations (principal); F10.129 Alcohol abuse with intoxication, unspecified; F17.290 Nicotine dependence, other tobacco product, uncomplicated; Y90.6 Blood alcohol level of 120-199 mg/100 ml
CPT/HCPCS: 80053; 80306; 81000; 85025; 93005; 99283; G0480 ×3; 36415; 80320; 80329

== ENCOUNTER 2022-10-17 10:29 | Emergency (ER) | payer BC ==
[~2022-10-17] VITALS: Ht 160 cm; Wt 52.1 kg
[2022-10-17 10:35] VITALS: BP 105/76
[2022-10-17] MEDS ORDERED: NS IV 1000 ML 1,000 ML IV STA (10:50)
[2022-10-17] MEDS ORDERED: D5 NS 1000 ML IV SOLUTION 1,000 ML IV STA (10:50)
[2022-10-17 11:01] LABS: BASOPHILS % (AUTO) 0 % (0-10); EOSINOPHILS % (AUTO) 0 % (0-10); HEMATOCRIT 40 % (35-52); HEMOGLOBIN 13.1 g/dL (11.5-16.0); LYMPHOCYTES % (AUTO) 22 % (12-44); MEAN CORPUSCULAR HEMOGLOBIN 27 pg (25-34); MEAN CORPUSCULAR HGB CONC 32 g/dL (32-36); MEAN CORPUSCULAR VOLUME 82 fL (80-99); MEAN PLATELET VOLUME 9.3 fL (9.0-12.2); MONOCYTES # (AUTO) 0.4 10^3/uL (0.0-1.0); MONOCYTES % (AUTO) 10 % (0-12); NEUTROPHILS # (AUTO) 3.1 10^3/uL (1.8-7.8); NEUTROPHILS % (AUTO) 67 % (42-75); PLATELET COUNT 334 10^3/uL (130-400); WHITE BLOOD COUNT 4.6 10^3/uL (4.3-11.0)
[2022-10-17 11:05] LABS: CHLORIDE 111 MMOL/L (98-107); POTASSIUM 3.4 MMOL/L (3.6-5.0); SODIUM 140 MMOL/L (135-145)
[2022-10-17 11:06] LABS: ALBUMIN 3.3 GM/DL (3.2-4.5)
[2022-10-17 11:07] LABS: CALCIUM 8.2 MG/DL (8.5-10.1)
[2022-10-17 11:08] LABS: GLUCOSE 84 MG/DL (70-105); TOTAL PROTEIN 6.5 GM/DL (6.4-8.2)
[2022-10-17 11:09] LABS: CARBON DIOXIDE 17 MMOL/L (21-32)
[2022-10-17 11:10] LABS: BILIRUBIN,TOTAL 0.2 MG/DL (0.1-1.0)
[2022-10-17 11:12] LABS: ALKALINE PHOSPHATASE 57 U/L (40-136); GFR ESTIMATED 110
[2022-10-17 11:13] LABS: BUN/CREATININE RATIO 10
[2022-10-17 11:14] LABS: ACETAMINOPHEN < 10 UG/ML (10-30); SALICYLATE < 5.0 MG/DL (5.0-20.0)
[2022-10-17 11:15] LABS: ALANINE AMINOTRANSFERASE 18 U/L (0-55)
--- NOTE | 2022-10-17 11:23 | ED General ---
General Chief Complaint: Altered Mental Status Stated Complaint: ALTERED MENTAL STATUS Nursing Triage Note: pt presents to ed via ems from scene. per ems pt was found laying on the ground next to a dumpster by someone who lived near by. pt able to open eyes and answers yes no questions but appears fatigued and slow to respond. Source of Information: EMS Exam Limitations: Intoxication History of Present Illness Date Seen by Provider: Oct 17, 2022 Time Seen by Provider: 10:40 Initial Comments Patient is a 41-year-old female who presents to the emergency department chief complaint altered mental status, concern for alcohol intoxication. Apparently EMS was notified by bystanders of an unresponsive person located outside. No history of present illness other than from EMS is available at this time. Patient's vital signs are stable, EMS reported a blood sugar of 114. Normal blood pressure, not tachycardic. Not considerably hypothermic per TM temperature. 96. She is arousable to verbal stimuli, will open her eyes but is not talking. Slow to respond to noxious stimuli. No obvious external signs of trauma. Smells heavily of alcohol. Patient's nurse BAY Medina was able to speak with the who states that Anna has a slight goal of starting on her bipolar medications and then she will quit taking them and go on an alcohol binge. He states to hand and that he and their son left the home on of this week. The last time Anna's saw her was last night. He states when she goes on these alcohol benders they will typically leave the house to not expose the 15-year-old to her behaviors. He checks on her daily to make sure that she is still alive. Reportedly she had an inpatient stay at [facility] in [place] several weeks ago. suspects that she has been off of her medications for about a week. HPI, review of systems, past medical family and social history unobtainable from the patient due to her suspected intoxicated state. Timing/Duration: Other (unknown) Severity: Severe Allergies and Home Medications Allergies Coded Allergies: vancomycin (Unverified Allergy, Severe, 05/11/10) metoclopramide (Unverified Adverse Reaction, Intermediate, 05/11/10) Uncoded Allergies: DARVOCET (Allergy, Intermediate, 05/11/10) Patient Home Medication List Home Medication List Reviewed: Yes Alprazolam (Alprazolam) 0.5 Mg Tablet, (Reported) Entered as Reported by: CHIKA PERAZA on 01/20/20 0511 Chlordiazepoxide HCl (Chlordiazepoxide HCl) 25 Mg Capsule, 25 MG PO UD Prescribed by: LOS HENSON on 08/17/20 0946 Diazepam (Diazepam) 5 Mg Tablet, 5 MG PO UD Prescribed by: IGOR MARIANO on 08/23/202001 Hydrocodone/Acetaminophen (Hydrocodone-Acetamin 10-325 mg) 1 Each Tablet, (Reported) Entered as Reported by: CHIKA PERAZA on 01/20/20 05 [place] Carbonate ([place] Carbonate) 150 Mg Capsule, Unknown Dose PO, (Reported) Entered as Reported by: CHIKA PERAZA on 01/02/18 0205 Olanzapine (Zyprexa) 10 Mg Tablet, 10 MG PO DAILY Prescribed by: IGOR MARIANO on 01/20/201957 Thiamine Mononitrate (Vitamin B-1) 100 Mg Tablet, 100 MG PO DAILY Prescribed by: IGOR MARIANO on 08/16/202150 Review of Systems Review of Systems Constitutional: see HPI unobtainable due to intoxicated state Past Rojjikm-Anddai-Zvfqjf Hx Patient Social History Smoking Status: Unknown if Ever Smoked Substance use?: Unable to obtain Alcohol Use?: Unable to obtain Pt feels they are or have been: Unable to obtain Immunizations Up To Date Tetanus Booster (TDap): Unknown First/Initial COVID19 Vaccinat: UNKNOWN Second COVID19 Vaccination Jose: UNKNOWN Third COVID19 Vaccination Date: UNKNOWN Seasonal Allergies Seasonal Allergies: No Past Medical History Surgeries: Yes (SMALL BOWEL RESECTION FOR CROHN'S) Abdominal, Bowel Surgery, Gallbladder, Tubal Ligation Respiratory: No Cardiac: No Neurological: No 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 Disorders: No 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 oz. 54.900404cx; 20.00 BMI Method:Stated General Appearance: No Apparent Distress, Thin Eyes: Bilateral Eye Normal Inspection, Bilateral Eye PERRL HEENT: Other (no jin's sign, no raccoon eyes; no obvious signs or findings of hear trauma) Neck: Supple Respiratory: Lungs Clear, Normal Breath Sounds, No Accessory Muscle Use, No Respiratory Distress Cardiovascular: Regular Rate, Rhythm, Gallop/S3, Tachycardia (HR97) Gastrointestinal: Normal Bowel Sounds, Soft; No Distended Back: Normal Inspection, Other (no step offs; no bruising) Extremity: Normal Capillary Refill, Normal Inspection, No Pedal Edema Neurologic/Psychiatric: Other (GCS - 8) Skin: Normal Color, Warm/Dry Progress/Results/Core Measures Suspected Sepsis SIRS Temperature: Pulse: 93 Respiratory Rate: 22 Laboratory Tests 10/17/22 10:39: White Blood Count 4.6 Blood Pressure 105 /76 Mean: 86 Laboratory Tests 10/17/22 10:39: Creatinine 0.70, Platelet Count 334, Total Bilirubin 0.2 Results/Orders Lab Results Laboratory Tests Test 10/17/22 10:39 10/17/22 10:44 Range/Units White Blood Count 4.6 4.3-11.0 10^3/uL Red Blood Count 4.93 3.80-5.11 10^6/uL Hemoglobin 13.1 11.5-16.0 g/dL Hematocrit 40 35-52 % Mean Corpuscular Volume 82 80-99 fL Mean Corpuscular Hemoglobin 27 25-34 pg Mean Corpuscular Hemoglobin Concent 32 32-36 g/dL Red Cell Distribution Width 15.4 H 10.0-14.5 % Platelet Count 334 130-400 10^3/uL Mean Platelet Volume 9.3 9.0-12.2 fL Immature Granulocyte % (Auto) 0 % Neutrophils (%) (Auto) 67 42-75 % Lymphocytes (%) (Auto) 22 12-44 % Monocytes (%) (Auto) 10 0-12 % Eosinophils (%) (Auto) 0 0-10 % Basophils (%) (Auto) 0 0-10 % Neutrophils # (Auto) 3.1 1.8-7.8 10^3/uL Lymphocytes # (Auto) 1.0 1.0-4.0 10^3/uL Monocytes # (Auto) 0.4 0.0-1.0 10^3/uL Eosinophils # (Auto) 0.0 0.0-0.3 10^3/uL Basophils # (Auto) 0.0 0.0-0.1 10^3/uL Immature Granulocyte # (Auto) 0.0 0.0-0.1 10^3/uL Sodium Level 140 135-145 MMOL/L Potassium Level 3.4 L 3.6-5.0 MMOL/L Chloride Level 111 H 98-107 MMOL/L Carbon Dioxide Level 17 L 21-32 MMOL/L Anion Gap 12 5-14 MMOL/L Blood Urea Nitrogen 7 7-18 MG/DL Creatinine 0.70 0.60-1.30 MG/DL Estimat Glomerular Filtration Rate 110 BUN/Creatinine Ratio 10 Glucose Level 84 70-105 MG/DL Calcium Level 8.2 L 8.5-10.1 MG/DL Corrected Calcium 8.8 8.5-10.1 MG/DL Total Bilirubin 0.2 0.1-1.0 MG/DL Aspartate Amino Transf (AST/SGOT) 25 5-34 U/L Alanine Aminotransferase (ALT/SGPT) 18 0-55 U/L Alkaline Phosphatase 57 40-136 U/L Total Protein 6.5 6.4-8.2 GM/DL Albumin 3.3 3.2-4.5 GM/DL Serum Test, Qualitative NEGATIVE NEGATIVE Salicylates Level < 5.0 L 5.0-20.0 MG/DL Acetaminophen Level < 10 L 10-30 UG/ML Serum Alcohol 401 *H <10 MG/DL Glucometer 87 70-110 MG/DL My Orders Orders - BATSHEVA DAS MD Cbc With Automated Diff (10/17/22 10:50) Comprehensive Metabolic Panel (10/17/22 10:50) Alcohol (10/17/22 10:50) Acetaminophen (10/17/22 10:50) Salicylate (10/17/22 10:50) Ed Iv/Invasive Line Start (10/17/22 10:50) Monitor-Rhythm Ecg Trace Only (10/17/22 10:50) Bh Status Checks/Observation O Q15M (10/17/22 10:50) Ed Iv/Invasive Line Start (10/17/22 10:50) Hcg,Qualitative Serum (10/17/22 10:50) Ns Iv 1000 Ml (Sodium Chloride 0.9%) (10/17/22 10:50) D5 Ns 1000 Ml Iv Solution (Dextrose 5%/0 (10/17/22 10:50) Vital Signs/I&O 10/17/22 10:35 Temp 35.6 Pulse 93 Resp 22 B/P (MAP) 105/76 (86) Pulse Ox 96 Capillary Refill : Less Than 3 Seconds Blood Pressure Mean: 86 Progress Note #1: Time: 11:38 Progress Note patient stumbled up and out of the bed attempting to get on the bedside commode to provide a urine sample. She is answering questions, one-word answers. She is quite intoxicated with a blood alcohol greater than 400. D5 NS running at 75 cc an hour with a 1 L fluid bolus of normal 16. The rest of her lab work, CBC is within normal limits, competence of metabolic panel CO2 of 17 and a slightly low potassium at 3.4. Normal LFTs. Aspirin and Tylenol levels are negative. Progress Note #2: Time: 12:38 Progress Note NOtified by RN that patient pulled out her IV and went through the ambulance doors, eloping from the hospital. Left her shoes and jacket - only in her stocking feet. Had just been starting to converse with the nurse. We were getting her a meal tray. PD called. Apparently they made contact with her - she denied SI/HI apparently, they took care of getting her home. Departure Impression Primary Impression: Alcohol intoxication Qualified Codes: F10.921 - Alcohol use, unspecified with intoxication delirium Disposition: AGAINST MEDICAL ADVICE Condition: Against Medical Advice Departure-Patient Inst. Referrals: [facility] (PCP/Family) Primary Care Physician BATSHEVA ADS MD Oct 17, 2022 11:23
== END 2022-10-17 12:28 | disposition left against medical advice (07) ==
LOC: EDUNIT# 10:29 → ER 10:30
DX: F10.129 Alcohol abuse with intoxication, unspecified (principal); E87.6 Hypokalemia; Y90.8 Blood alcohol level of 240 mg/100 ml or more
CPT/HCPCS: 80053; 82947; 84703; 85025; 93041; 99283; G0480 ×3; 36415; 80320; 80329

== ENCOUNTER 2022-10-20 16:04 | Inpatient (IN) | payer BC ==
[~2022-10-20] VITALS: Ht 165.1 cm; Wt 55.2 kg
[2022-10-20] MEDS ORDERED: NS IV 1000 ML 1,000 ML IV ONE (16:15)
[2022-10-20 16:22] LABS: BILIRUBIN,URINE NEGATIVE (NEGATIVE); CLARITY,URINE CLEAR; COLOR,URINE YELLOW; GLUCOSE, URINE (UA) NEGATIVE (NEGATIVE); KETONES,URINE 1+ (NEGATIVE); LEUKOCYTE ESTERASE ,URINE NEGATIVE (NEGATIVE); NITRITE,URINE NEGATIVE (NEGATIVE); PROTEIN,URINE NEGATIVE (NEGATIVE)
[2022-10-20 16:22] LABS: BASOPHILS % (AUTO) 0 % (0-10); EOSINOPHILS % (AUTO) 0 % (0-10); HEMATOCRIT 43 % (35-52); HEMOGLOBIN 14.4 g/dL (11.5-16.0); LYMPHOCYTES # (AUTO) 1.1 10^3/uL (1.0-4.0); LYMPHOCYTES % (AUTO) 9 % (12-44); MEAN CORPUSCULAR HEMOGLOBIN 27 pg (25-34); MEAN CORPUSCULAR HGB CONC 34 g/dL (32-36); MEAN CORPUSCULAR VOLUME 79 fL (80-99); MONOCYTES # (AUTO) 0.3 10^3/uL (0.0-1.0); MONOCYTES % (AUTO) 3 % (0-12); NEUTROPHILS # (AUTO) 10.2 10^3/uL (1.8-7.8); NEUTROPHILS % (AUTO) 88 % (42-75); PLATELET COUNT 363 10^3/uL (130-400); WHITE BLOOD COUNT 11.6 10^3/uL (4.3-11.0)
[2022-10-20] MEDS ORDERED: PROPOFOL DRIP (ICU) 100 ML IV SCH (16:30)
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
[2022-10-20 16:37] LABS: ALBUMIN 4.1 GM/DL (3.2-4.5); CHLORIDE 101 MMOL/L (98-107); POTASSIUM 4.5 MMOL/L (3.6-5.0); SODIUM 140 MMOL/L (135-145)
[2022-10-20 16:38] LABS: CALCIUM 8.8 MG/DL (8.5-10.1)
[2022-10-20 16:40] LABS: AMPHETAMINE SCREEN, URINE NEGATIVE (NEGATIVE); BARBITURATE SCREEN URINE NEGATIVE (NEGATIVE); BENZODIAZEPINES SCREEN URINE NEGATIVE (NEGATIVE); CANNABINOID SCREEN, URINE NEGATIVE (NEGATIVE); COCAINE SCREEN URINE NEGATIVE (NEGATIVE); METHADONE STAT NEGATIVE (NEGATIVE); OPIATE SCREEN URINE NEGATIVE (NEGATIVE); OXYCODONE STAT NEGATIVE (NEGATIVE); PROPOXYPHENE STAT NEGATIVE (NEGATIVE); TRICYCLIC ANTIDEPRESSANTS SCRE NEGATIVE (NEGATIVE)
[2022-10-20 16:40] LABS: GLUCOSE 108 MG/DL (70-105); TOTAL PROTEIN 8.1 GM/DL (6.4-8.2)
[2022-10-20 16:41] LABS: BILIRUBIN,TOTAL 0.5 MG/DL (0.1-1.0); CARBON DIOXIDE 19 MMOL/L (21-32)
[2022-10-20 16:43] LABS: ALKALINE PHOSPHATASE 99 U/L (40-136); CREATININE SERUM 0.74 MG/DL (0.60-1.30); GFR ESTIMATED 103
[2022-10-20 16:45] LABS: BUN/CREATININE RATIO 8
[2022-10-20 16:46] LABS: SALICYLATE < 5.0 MG/DL (5.0-20.0)
[2022-10-20 16:47] LABS: ALANINE AMINOTRANSFERASE 47 U/L (0-55)
[2022-10-20 16:52] LABS: ACETAMINOPHEN < 10 UG/ML (10-30)
[2022-10-20 17:06] LABS: BACTERIA,URINE TRACE /HPF; HYALINE CASTS, URINE RARE /LPF; RBC,URINE RARE /HPF; SQUAMOUS EPITHELIAL CELL,UR RARE /HPF
[2022-10-20 17:12] LABS: MAGNESIUM 2.1 MG/DL (1.6-2.4)
--- NOTE | 2022-10-20 17:22 | Diagnostic Imaging Report ---
PROCEDURE: CT head without contrast. TECHNIQUE: Multiple contiguous axial images were obtained through the brain without the use of intravenous contrast. Auto Exposure Controls were utilized during the CT exam to meet ALARA standards for radiation dose reduction. INDICATION: Overdose, unresponsive. Comparison is made with prior head CT from 11/02/2018. FINDINGS: Ventricles and sulci are within normal limits. No sulcal effacement or midline shift is identified. No acute intra-axial or extra-axial hemorrhage is detected. Cisterns are patent. Visualized paranasal sinuses are clear. IMPRESSION: No acute intracranial process is detected. Dictated by: Dictated on workstation # [id number]
[2022-10-20 17:27] LABS: ABG BASE EXCESS -7.2 MMOL/L (-2.5-2.5); ABG OXYGEN SATURATION 99 % (94-100); ABG PCO2 36 MMHG (35-45); ABG PO2 157 MMHG (79-93); ABG TCO2 18.9 MMOL/L (21.0-31.0)
[2022-10-20 17:28] LABS: ALLENS TEST YES-POS; INSPIRED O2 30%; VENTILATOR YES
[2022-10-20 17:29] LABS: PATIENT TEMP 37
[2022-10-20 17:30] LABS: ABG PH 7.31 (7.37-7.43)
[2022-10-20] MEDS ORDERED: LACTATED RINGERS 1,000 ML IV ONE (17:30)
--- NOTE | 2022-10-20 17:51 | Diagnostic Imaging Report ---
INDICATION: Intubation. TIME OF EXAM: 05:22 p.m. FINDINGS: ET tube has tip in good position above the sacha. NG tube passes into the stomach. Heart size is normal. Lungs appear to be clear. No infiltrates are seen. There is no effusion or pneumothorax identified. IMPRESSION: Satisfactory endotracheal tube placement. Dictated by: Dictated on workstation # [id number]
[2022-10-20] MEDS ORDERED: ETOMIDATE IV SOLN 20 MG/10 ML VIAL IV ONE (18:01)
[2022-10-20] MEDS ORDERED: fentaNYL INJ 100 MCG/2 ML AMP IV ONE (18:01)
[2022-10-20] MEDS ORDERED: ROCURONIUM 10 MG/ML 5 ML SYRINGE IV ONE (18:01)
[2022-10-20] MEDS ORDERED: MIDAZOLAM 5 MG/5 ML (VERSED) VIAL INJ ONE (18:01)
[2022-10-20] MEDS ORDERED: SUCCINYLCHOLINE INJ 20 MG/1 ML 10 ML VIAL INJ ONE (18:01)
[2022-10-20 18:46] VITALS: BP 95/63
[2022-10-20 18:59] VITALS: BP 95/63
[2022-10-20] MEDS ORDERED: LACTULOSE SYRUP 10GM/15ML (ENULOSE) 30ML UDC PO PRN (19:00)
[2022-10-20] MEDS ORDERED: DexMEDEtomidine 250 ML DRIP 250 ML IV SCH (19:00)
[2022-10-20] MEDS ORDERED: diphenhydrAMINE 50 MG/ML INJ (BENADRYL) IVP PRN (19:00)
[2022-10-20] MEDS ORDERED: MIDAZOLAM DRIP PRE-MIX 100 ML IV SCH (19:00)
[2022-10-20] MEDS ORDERED: ONDANSETRON 4 MG/2 ML (SDV) Z0FRAN IV PRN (19:00)
[2022-10-20] MEDS ORDERED: NS IV 1000 ML 1,000 ML IV SCH (19:00)
[2022-10-20] MEDS ORDERED: ONDANSETRON 4 MG (ZOFRAN) ORAL DISSOLVE TAB PO PRN (19:00)
[2022-10-20] MEDS ORDERED: diphenhydrAMINE 25 MG TAB (BENADRYL) PO PRN (19:00)
[2022-10-20] MEDS ORDERED: CALCIUM CARBONATE 500 MG (TUMS) TAB.CHEW PO PRN (19:00)
[2022-10-20] MEDS ORDERED: ANTACID SUSP 30 ML UDC (MYLANTA) PO PRN (19:00)
[2022-10-20] MEDS ORDERED: HALOPERIDOL 5 MG/ML (HALDOL) VIAL IV PRN (19:00)
[2022-10-20] MEDS ORDERED: polyethylene glycoL POWDER 17 GM (MIRALAX) PACK PO PRN (19:00)
[2022-10-20] MEDS ORDERED: NS IV 500 ML 500 ML IV PRN (19:00)
[2022-10-20] MEDS ORDERED: BISACODYL 10 MG SUPP (DULCOLAX) PR PRN (19:00)
[2022-10-20] MEDS ORDERED: MELATONIN 3 MG TABLET PO PRN (19:00)
[2022-10-20] MEDS ORDERED: MILK OF MAGNESIA 400 MG/5 ML 30 ML UDC PO PRN (19:00)
[2022-10-20] MEDS ORDERED: LACTATED RINGERS 1,000 ML IV SCH (19:30)
--- NOTE | 2022-10-20 19:42 | Tele-ICU Progress Note ---
Progress Note 41F with BiPolar d/o, EtOH dependence with multiple admists for intoxication and suicidal ideations is admitted with AMS. Per family, has been off her meds for 2 months, drinking large quantities to control her symptoms. Has had multiple falls recently. Today drank quite a bit of vodka and took flexeril 20 mg. Was able to walk over to son's girlfriends house. An hour prior to presentation, she became nonverbal prompting family to call EMS. In ED, CT head was negative for acute pathology. UDS negative, APAP <10, ASA <5, EtOH 302 (was 401 in ED 3 days ago). She was intubated to facilitate work up. They were unable to obtain CT due to constant movement, not following commands or purposeful. Since intubation has required increasing sedation for vent synchrony. No reports of purposeful movements during that time. - ARF: secondary to neurologic process. May get worse before getting better. Will maintain mechanical ventilation tonight unless she shows purposeful neurologic recovery. Otherwise, will have sedation vacation in AM per protocol. When mental status is improving, will assess for extubation. - AMS: suspected overdose. Unlikely to be from 20 mg baclofen. Unclear whether she took higher doses of baclofen or whether another drug is involved. Will send lithium levels to ensure she did not take an old supply. Currently pupils are pinpoint, not consistent with baclofen OD which would cause fixed and dilated pupils. Could be from fentanl in ED. Poison control following. Maintain electrolytes and monitor EKGs. - CK elevation: mild to moderate elevation at 4545, no renal impairment. Will change fluids to LR at 200, maintain brisk UOP. Monitor q6 CK levels until downtrending. Monitor UOP. Avoid further nephrotoxins. Potentially from down time, unwitnessed seizure or direct drug effect. Rhabdo is a known effect of flexeril toxicity. - metabolic acidosis: potentially secodary to early rhabdo vs drug effect vs alcoholic ketosis. Will repeat BMP with next CK level. Patient evaluated with real-time video audio communications. CCT 31 min Focused Exam Height, Weight, BMI Height: 5'4.00" Weight: 120lbs. oz. 54.883977bw; 19.11 BMI Method:Stated GRIFFIN PULLIAM MD Oct 20, 2022 19:42
[2022-10-20] MEDS ORDERED: NS IV 1000 ML 1,000 ML ONE (19:48)
[2022-10-20] MEDS: PROPOFOL DRIP (ICU) 100 ML IV SCH ×2 (19:55→21:45)
[2022-10-20 19:58] VITALS: BP 142/106
[2022-10-20] MEDS: fentaNYL DRIP PRE-MIX 250 ML IV SCH (20:01)
[2022-10-20] MEDS ORDERED: RT-ALBUTEROL SULF 2.5 MG/3 ML PRE-MIX VIAL INH PRN (20:15)
[2022-10-20] MEDS: ENOXAPARIN 40 MG/0.4 ML (LOVENOX) SYR SC SCH (20:47)
[2022-10-20 22:15] VITALS: BP 101/63
[2022-10-20] MEDS ORDERED: MIDAZOLAM 2 MG/2 ML (VERSED) VIAL IVP ONE (22:15)
[2022-10-20 22:55] LABS: POTASSIUM 3.6 MMOL/L (3.6-5.0)
[2022-10-20 22:56] LABS: CALCIUM 7.5 MG/DL (8.5-10.1)
[2022-10-20 23:01] LABS: CREATININE SERUM 0.67 MG/DL (0.60-1.30); PHOSPHORUS 3.4 MG/DL (2.3-4.7)
[2022-10-20 23:03] LABS: MAGNESIUM 1.9 MG/DL (1.6-2.4)
[2022-10-20] MEDS: DOCUSATE SODIUM 100 MG (COLACE) CAP PO SCH (23:07)
[2022-10-20] MEDS ORDERED: DEXTROSE 50% 50 ML (IMS) SYR ONE (23:15)
[2022-10-20] MEDS ORDERED: MAGNESIUM 1 GM/100 ML IVPB 100 ML IV ONE (23:30)
[2022-10-20] MEDS ORDERED: DEXTROSE 50% 50 ML (IMS) SYR IV ONE (23:30)
[2022-10-20] MEDS: SENNOSIDES 8.6 MG (SENOKOT) TAB PO SCH (23:58)
[2022-10-20] MEDS: POTASSIUM CL 10MEQ/50ML IVPB 50 ML IV SCH (23:58)
[2022-10-21] MEDS: D5 LR IV SOLUTION 1,000 ML IV SCH ×6 (00:12→23:09)
[2022-10-21] MEDS: POTASSIUM CL 10MEQ/50ML IVPB 50 ML IV SCH ×4 (00:54→06:17)
[2022-10-21 02:14] VITALS: BP 95/63
[2022-10-21] MEDS: fentaNYL DRIP PRE-MIX 250 ML IV SCH (03:21)
[2022-10-21 05:28] LABS: BASOPHILS % (AUTO) 0 % (0-10); EOSINOPHILS % (AUTO) 0 % (0-10); HEMATOCRIT 30 % (35-52); HEMOGLOBIN 9.8 g/dL (11.5-16.0); LYMPHOCYTES # (AUTO) 1.4 10^3/uL (1.0-4.0); LYMPHOCYTES % (AUTO) 20 % (12-44); MEAN CORPUSCULAR HEMOGLOBIN 27 pg (25-34); MEAN CORPUSCULAR HGB CONC 33 g/dL (32-36); MEAN CORPUSCULAR VOLUME 81 fL (80-99); MEAN PLATELET VOLUME 9.5 fL (9.0-12.2); MONOCYTES # (AUTO) 0.3 10^3/uL (0.0-1.0); MONOCYTES % (AUTO) 4 % (0-12); NEUTROPHILS # (AUTO) 5.1 10^3/uL (1.8-7.8); NEUTROPHILS % (AUTO) 75 % (42-75); PLATELET COUNT 252 10^3/uL (130-400); WHITE BLOOD COUNT 6.8 10^3/uL (4.3-11.0)
[2022-10-21 05:30] LABS: ABG BASE EXCESS -0.6 MMOL/L (-2.5-2.5); ABG OXYGEN SATURATION 98 % (94-100); ABG PCO2 41 MMHG (35-45); ABG PH 7.38 (7.37-7.43); ABG PO2 95 MMHG (79-93)
[2022-10-21 05:32] LABS: ALLENS TEST YES-POS; INSPIRED O2 25%; PATIENT TEMP 37.1; VENTILATOR NO
[2022-10-21 05:53] LABS: ALBUMIN 2.6 GM/DL (3.2-4.5); BILIRUBIN,TOTAL 0.6 MG/DL (0.1-1.0); CALCIUM 7.7 MG/DL (8.5-10.1); CREATININE SERUM 0.75 MG/DL (0.60-1.30); MAGNESIUM 2.1 MG/DL (1.6-2.4); PHOSPHORUS 2.4 MG/DL (2.3-4.7); POTASSIUM 4.3 MMOL/L (3.6-5.0); TOTAL PROTEIN 5.1 GM/DL (6.4-8.2)
[2022-10-21] MEDS: MAGNESIUM 1 GM/100 ML IVPB 100 ML IV SCH (06:17)
[2022-10-21] MEDS: KCL 20 MEQ TAB (K-DUR) PO SCH (06:18)
[2022-10-21 06:45] VITALS: BP 105/68
[2022-10-21] MEDS ORDERED: fentaNYL INJ 1,250 MCG in NS (IVPB) 225 ML IV SCH (07:15)
--- NOTE | 2022-10-21 07:39 | Diagnostic Imaging Report ---
INDICATION: OG placement FINDINGS: OG catheter is in the stomach. ET tube mid thoracic trachea. Lungs clear. No failure, effusion or pneumothorax. IMPRESSION: Clear chest with support apparatus projecting in good alignment. Dictated by: Dictated on workstation # [id number]
[2022-10-21] MEDS: DOCUSATE SODIUM 100 MG (COLACE) CAP PO SCH ×2 (07:49→20:23)
[2022-10-21] MEDS: PANTOPRAZOLE 40 MG (PROTONIX) VIAL IV SCH (08:21)
--- NOTE | 2022-10-21 09:02 | Physical Therapy Progress Note ---
Therapy Progress Note Received orders for PT evaluation. Patient is currently intubated and sedated. Will monitor and start when appropriate and patient can participate. ANA RIVERA PT Oct 21, 2022 09:01
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
[2022-10-21 10:14] VITALS: BP 118/73
[2022-10-21 10:24] VITALS: BP 118/73
--- NOTE | 2022-10-21 10:47 | Occ Therapy Progress Note ---
Therapy Progress Note OT order received, chart reviewed, patient intubated an don hold for therapy service, OT will continue to monitor for appropriateness for evaluation CAMILO VALDES OT Oct 21, 2022 10:47
[2022-10-21] MEDS ORDERED: LORazepam INJ 2 MG/ML (ATIVAN) VIAL IM/IV PRN (11:15)
[2022-10-21] MEDS ORDERED: SENNA W/DOCUSATE (SENOKOT S) TABLET PO PRN (11:15)
[2022-10-21] MEDS ORDERED: 1/2 NS IV SOLUTION 1,000 ML IV PRN (11:15)
[2022-10-21] MEDS ORDERED: LORazepam INJ 2 MG/ML (ATIVAN) VIAL IV PRN (11:15)
[2022-10-21] MEDS ORDERED: D5 1/2 NS 1000 ML IV SOLUTION 1,000 ML IV PRN (11:15)
[2022-10-21] MEDS ORDERED: ANTACID SUSP 30 ML UDC (MYLANTA) PO PRN (11:15)
--- NOTE | 2022-10-21 11:31 | History & Physical-Hospitalist ---
ORBERTO GALVAN 10/21/22 1131: History of Present Illness HPI/Chief Complaint 41 yo F with a history of alcohol dependence, bipolar disorder, and Chron's disease presented to the ER on 10/20 after her family became concerned an alcohol overdose. Per her family, she had consumed a large amount of Vodka as well as Flexaril 20 mg and become non-verbal within the previous hour. Reportedly, her ipolar disorder was well controlled by lithium for several years but in the past few months had discontinued the medication and had been using alcohol to control her symptoms. During this time, she had had numerous manic episodes and falls. Upon arrival to the ER, she was nonverbal - though responsive to stimuli - restless, and unable to follow commands. Due to her AMS and airway concerns, she was intubated for further evaluation and airway protection. Workup revealed an serum etOH of 401, CK of over 4500, metabolic acidosis (7.31), and mildly elevated LFTs. CT, UDS and UA were negative. She was transferred to [facility] ICU for further management. Source: family, RN/MD Date Seen 10/21/22 Attending Physician [facility] PCP Admitting Physician: Flori Maynard DO Attending Physician: Flori Maynard DO Referring Physician Date of Admission Oct 20, 2022 at 17:53 Home Medications & Allergies Home Medications Reviewed patient Home Medication Reconciliation performed by pharmacy medication reconciliations property technician and/or nursing. Patients Allergies have been reviewed. Allergies Allergies Coded Allergies vancomycin (Unverified Allergy, Severe, 05/11/10) metoclopramide (Unverified Adverse Reaction, Intermediate, 05/11/10) Uncoded Allergies DARVOCET ( Allergy, Intermediate, 05/11/10) Past Fhqutbh-Onxrme-Pcodqh Hx Patient Social History Smoking Status: Unknown if Ever Smoked Smokeless Tobacco Frequency: Unknown if Ever Used Use of E-Cig and/or Vaping Angel: Unknown if Ever Used Substance use?: Unable to obtain Alcohol Use?: Yes Additional alcohol type: PT SEDATED AND INTUBATED Alcohol Frequency: Daily Pt feels they are or have been: Unable to obtain Immunizations Up To Date First/Initial COVID19 Vaccinat: UNKNOWN Second COVID19 Vaccination Jose: UNKNOWN Tetanus Booster (TDap): Unknown Seasonal Allergies Seasonal Allergies: No Current Status status: No status: Unable to obtain Advance Directives: Unable to obtain Primary Language: British Preferred Spoken Language: British Past Medical History Surgeries: Abdominal, Bowel Surgery, Gallbladder, 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 oz. 54.225509pt; 19.11 BMI Method:Stated General Appearance: Other (sedated and intubated) Respiratory: Lungs Clear Cardiovascular: Regular Rate, Rhythm Gastrointestinal: Normal Bowel Sounds Back: Normal Inspection Skin: Normal Color Results Results/Procedures Labs Laboratory Tests 10/20/22 16:10 10/20/22 22:36 10/21/22 04:33 Patient resulted labs reviewed. Assessment/Plan Assessment and Plan Acute alcohol intoxication causing AMS - known history of alcohol dependence - binge on 10/20 in combination with Flexaril 20 mg - intubated and sedated since 10/20 (450/14//25%) due to severe AMS - E-ICU following and will determine readiness for SBT/extubation - Poison control following and recommended EKGs q2h: sinus rhythm with short MN, possible RV conduction delay, possible LA enlargement on serial EKGS done 10/21 Rhabdomyolysis - CK improved from ED (0369 today) - IV fluids maintained Anemia - Hb 9.8 today - monitor Metabolic acidosis (resolved) Bipolar Disorder - previously medicated; pt unmedicated for several months - discuss resuming appropatiate medications after recovery FLORI MAYNARD DO 10/21/22 3830: History of Present Illness Source: family, RN/MD Exam Limitations: clinical condition Time Seen by a Provider: 10:00 Review of Systems Constitutional: see HPI Physical Exam Physical Exam General Appearance: No Apparent Distress, Other (sedated and intubated) Respiratory: Lungs Clear Cardiovascular: Regular Rate, Rhythm Assessment/Plan Admission Diagnosis Assessment: Respiratory failure OD ETOH intox Bipolar Plan: Vent mngt Admission Status: Inpatient Order (span 2 midnights) Reason for Inpatient Admission: resp failure Supervisory-Addendum Brief Verification & Attestation Participated in pt care: history, MDM, physical Personally performed: exam, history, MDM, supervision of care Care discussed with: Medical Student Procedures: n/a Results interpretation: Verified all documentation Verification and Attestation of Medical Student E/M Service A medical student performed and documented this service in my presence. I reviewed and verified all information documented by the medical student and made modifications to such information, when appropriate. I personally performed the physical exam and medical decision making. Flori Maynard, Oct 21, 2022,16:29 ROBERTO GALVAN Oct 21, 2022 11:31 FLORI MAYNARD DO Oct 21, 2022 16:29
[2022-10-21] MEDS ORDERED: ATOM40CA6 PO (11:39)
[2022-10-21] MEDS ORDERED: LTH450TCR PO (11:39)
[2022-10-21] MEDS ORDERED: OLAN2.5T3 PO (11:39)
[2022-10-21] MEDS: SENNOSIDES 8.6 MG (SENOKOT) TAB PO SCH ×2 (11:51→20:20)
[2022-10-21] MEDS: ACETAMINOPHEN 325 MG TABLET PO PRN ×2 (11:54→18:31)
[2022-10-21] MEDS ORDERED: LACTATED RINGERS 1,000 ML IV ONE ×2 (14:45→14:48)
[2022-10-21] MEDS: ENOXAPARIN 40 MG/0.4 ML (LOVENOX) SYR SC SCH (18:02)
[2022-10-21] MEDS: LORazepam 1 MG (ATIVAN) TAB PO PRN (18:31)
[2022-10-21] MEDS: LITHIUM CARB SR 450 MG (ESKALITH-CR) TAB PO SCH (20:20)
[2022-10-21] MEDS: OLANZapine 2.5 MG (ZyPREXA) TAB PO SCH (20:20)
[2022-10-22 02:13] LABS: BASOPHILS % (AUTO) 0 % (0-10); EOSINOPHILS # (AUTO) 0.1 10^3/uL (0.0-0.3); EOSINOPHILS % (AUTO) 3 % (0-10); HEMATOCRIT 31 % (35-52); HEMOGLOBIN 10.1 g/dL (11.5-16.0); LYMPHOCYTES # (AUTO) 1.3 10^3/uL (1.0-4.0); LYMPHOCYTES % (AUTO) 27 % (12-44); MEAN CORPUSCULAR HEMOGLOBIN 27 pg (25-34); MEAN CORPUSCULAR HGB CONC 32 g/dL (32-36); MEAN CORPUSCULAR VOLUME 83 fL (80-99); MEAN PLATELET VOLUME 9.8 fL (9.0-12.2); MONOCYTES # (AUTO) 0.2 10^3/uL (0.0-1.0); MONOCYTES % (AUTO) 4 % (0-12); NEUTROPHILS # (AUTO) 3.3 10^3/uL (1.8-7.8); NEUTROPHILS % (AUTO) 66 % (42-75); PLATELET COUNT 190 10^3/uL (130-400)
[2022-10-22 02:18] LABS: ALBUMIN 2.5 GM/DL (3.2-4.5); POTASSIUM 3.4 MMOL/L (3.6-5.0)
[2022-10-22 02:19] LABS: CALCIUM 7.8 MG/DL (8.5-10.1)
[2022-10-22 02:22] LABS: BILIRUBIN,TOTAL 0.6 MG/DL (0.1-1.0)
[2022-10-22 02:24] LABS: CREATININE SERUM 0.52 MG/DL (0.60-1.30); PHOSPHORUS 2.4 MG/DL (2.3-4.7)
[2022-10-22 02:27] LABS: MAGNESIUM 1.8 MG/DL (1.6-2.4)
[2022-10-22] MEDS: KCL 20 MEQ TAB (K-DUR) PO SCH (03:48)
[2022-10-22] MEDS: MAGNESIUM 1 GM/100 ML IVPB 100 ML IV SCH (03:48)
[2022-10-22] MEDS: POTASSIUM CL 10MEQ/50ML IVPB 50 ML IV SCH ×3 (03:48→05:50)
[2022-10-22] MEDS: ACETAMINOPHEN 325 MG TABLET PO PRN (04:35)
[2022-10-22] MEDS: D5 LR IV SOLUTION 1,000 ML IV SCH ×2 (05:51→08:22)
--- NOTE | 2022-10-22 06:07 | Progress Note - Hospitalist ---
Subjective HPI/CC On Admission Date Seen by Provider: Oct 22, 2022 Time Seen by Provider: 11:00 Subjective/Events-last exam Much improved Move to 4th floor CPK improved Save Line contacted Focused Exam Lactate Level 10/20/22 22:36: Lactic Acid Level 1.75 Objective Exam Vital Signs Vital Signs Date Time Temp Pulse Resp B/P (MAP) Pulse Ox O2 Delivery O2 Flow Rate FiO2 10/23/22 03:12 36.2 72 16 129/76 (93) 99 Room Air 10/22/22 21:09 0.00 10/21/22 10:24 25 Capillary Refill : Less Than 3 Seconds General Appearance: No Apparent Distress, WD/WN, Chronically ill Respiratory: Lungs Clear, Normal Breath Sounds Cardiovascular: Regular Rate, Rhythm Neurologic/Psychiatric: Alert, Oriented x3 Results/Procedures Lab Laboratory Tests 10/22/22 15:28 Patient resulted labs reviewed. Assessment/Plan Assessment and Plan Assess & Plan/Chief Complaint Assessment: s/p OD with Flexeril and ETOH intoxication requiring intubation Bipolar d/o Plan: IVF RAMSES ANTONIO DO Oct 22, 2022 06:07
[2022-10-22] MEDS: PANTOPRAZOLE 40 MG (PROTONIX) VIAL IV SCH (08:22)
[2022-10-22] MEDS: LITHIUM CARB SR 450 MG (ESKALITH-CR) TAB PO SCH ×2 (08:22→21:36)
[2022-10-22] MEDS: LORazepam 1 MG (ATIVAN) TAB PO PRN ×3 (08:22→20:57)
[2022-10-22] MEDS: SENNOSIDES 8.6 MG (SENOKOT) TAB PO SCH ×2 (08:31→21:36)
[2022-10-22] MEDS: DOCUSATE SODIUM 100 MG (COLACE) CAP PO SCH ×2 (08:31→21:36)
[2022-10-22] MEDS ORDERED: ATOMOXETINE HCL 40 MG PO SCH (09:00)
[2022-10-22] MEDS ORDERED: THIAMINE INJECTION 100 MG, FOLIC ACID INJECTION 1 MG in NS (IVPB) 50 ML IV SCH (09:00)
--- NOTE | 2022-10-22 09:13 | Diagnostic Imaging Report ---
INDICATION: Respiratory failure. Frontal chest obtained at 02:22 a.m. compared to 10/20/2022 FINDINGS: Compared to the prior study, patient has been extubated and NG tube removed. Heart is normal in size. There is no focal pulmonary infiltrate or pneumothorax or pleural fluid. IMPRESSION: Status post extubation. No focal infiltrate or pneumothorax or pleural fluid. Dictated by: Dictated on workstation # [id number]
--- NOTE | 2022-10-22 10:06 | Physical Therapy Evaluation ---
PT Evaluation-General Medical Diagnosis Admission Date Oct 20, 2022 at 17:53 Medical Diagnosis: alcohol intoxication/closed head injury Onset Date: Oct 20, 2022 Therapy Diagnosis Therapy Diagnosis: debility Height/Weight Height (Feet): 5 Height (Inches): 4.00 Weight (Pounds): 120 Precautions Precautions/Isolations: Fall Prevention, Standard Precautions Referral Physician: Caesar Reason for Referral: Evaluation/Treatment Medical History Pertinent Medical History: Alcoholism, Hypothroidism Additional Medical History Crohn's/bipolar Current History ER via family secondary to excessive intake of alcohol and medication per report Reviewed History: Yes Social History Home: Single Level Current Living Status: Spouse Prior Prior Level of Function SCALE: Activities may be completed with or without assistive devices. 9-Cmlxbivira-gjfmdas completes the activity by him/herself with no assistance from a helper. 5-Set-up or Clean-up Assistance-helper sets up or cleans up; patient completes activity. [place] assists only prior to or following the activity. 4-Supervision or Touching Assistance-helper provides verbal cues and/or touching/steadying and/or contact guard assistance as patient completes activity. Assistance may be provided throughout the activity or intermittently. 3-Partial/Moderate Assistance-helper does LESS THAN HALF the effort. [place] lifts, holds or supports trunk or limbs, but provides less than half the effort. 2-Substantial/Maximal Assistance-helper does MORE THAN HALF the effort. [place] lifts or holds trunk or limbs and provides more than half the effort. 8-Idshhclfk-bzczwo does ALL the effort. Patient does none of the effort to complete the activity. Or, the assistance of 2 or more helpers is required for the patient to complete the activity. If activity was not attempted, code reason: 7-Patient Refused. 9-Not Applicable-not attempted and the patient did not perform the activity before the current illness, exacerbation or injury. 10-Not Attempted due to Environmental Limitations-(lack of equipment, weather restraints, etc.). 88-Not Attempted due to Medical Conditions or Safety Concerns. Bed Mobility: 6 Transfers (B,C,W/C): 6 Gait: 6 Stairs: 6 Indoor Mobility (Ambulation): Independent Stairs: Independent Prior Devices Use: None PT Evaluation-Current Subjective Patient agrees to PT. Objective Patient Orientation: Normal For Age Attachments: Oxygen, Mckeon Catheter, IV ROM/Strength ROM Lower Extremities bilateral LE WFL Strength Lower Extremities 4/5 grossly bilateral LE all planes Integumentary/Posture Bladder Incontinence: Mckeon Cath Posture WFL Neuromuscular (Tone, Coordination, Reflexes) grossly intact Sensory Vision: Functional Hearing: Functional Transfers Lying to Sitting/Side of Bed(Q: 6 Sit to Stand (QC): 6 Chair/Mai-kk-Npksv Xfer(QC): 6 Gait Mode of Locomotion: Walk Anticipated Mode of Locomotion: Walk Walk 10 feet (QC): 6 Gait Assistive Device: None Comments/Gait Description safe and functional with no deviation Balance Sitting Static: Normal Sitting Dynamic: Normal Standing Static: Normal Standing Dynamic: Normal Assessment/Needs Patient declined to ambulate farther distance. Patient is currently at independent PLOF with all gross motor skills and does not require skilled PT intervention. Rehab Potential: Fair PT Plan Treatment/Plan Treatment Plan: Discontinue PT Treatment Duration: Oct 22, 2022 Frequency: 1 time per week Estimated Hrs Per Day: .25 hour per day Patient and/or Family Agrees t: Yes Time Time In: 735 Time Out: 745 DATE: Oct 22, 2022 Total Billed Treatment Time: 10 Total Billed Treatment 1 visit EVLowC 10 min JELANI SILVESTRE PT Oct 22, 2022 10:06
--- NOTE | 2022-10-22 10:59 | Occupational Therapy Eval ---
OT Evaluation-General/PLF Medical Diagnosis Admission Date Oct 20, 2022 at 17:53 Medical Diagnosis: alcohol intoxication/closed head injury Onset Date: Oct 20, 2022 Therapy Diagnosis Therapy Diagnosis: impaired coordination Height/Weight Height (Feet): 5 Height (Inches): 4.00 Weight (Pounds): 120 Precautions Precautions/Isolations: Fall Prevention, Standard Precautions Weight Bear Status Weight Bearing Restriction: Weight Bearing/Tolerated Referral Physician: Caesar Referral Reason: Evaluation/Treatment Medical History Pertinent Medical History: Alcoholism, Hypothroidism Current History c/c overdose medication w/ ETOH,, family report of noncompliance and inconsistent medication methods. Admission to and intubated 10/21/22 for precaution, extubated 10/21/22 Reviewed History: Yes Social History Home: Multilevel Current Living Status: Spouse Entry Into Home: Stairs With Railing Steps Into Home: 3 Steps Inside Home: 13 Patient reports living with and son in a 2 story house w/ her bedroom on second floor. ADL-Prior Level of Function SCALE: Activities may be completed with or without assistive devices. 9-Hejnkzuort-sysemuv completes the activity by him/herself with no assistance from a helper. 5-Set-up or Clean-up Assistance-helper sets up or cleans up; patient completes activity. [place] assists only prior to or following the activity. 4-Supervision or Touching Assistance-helper provides verbal cues and/or touching/steadying and/or contact guard assistance as patient completes activity. Assistance may be provided throughout the activity or intermittently. 3-Partial/Moderate Assistance-helper does LESS THAN HALF the effort. [place] lifts, holds or supports trunk or limbs, but provides less than half the effort. 2-Substantial/Maximal Assistance-helper does MORE THAN HALF the effort. [place] lifts or holds trunk or limbs and provides more than half the effort. 2-Szopwjkyu-qfqfia does ALL the effort. Patient does none of the effort to complete the activity. Or, the assistance of 2 or more helpers is required for the patient to complete the activity. If activity was not attempted, code reason: 7-Patient Refused. 9-Not Applicable-not attempted and the patient did not perform the activity before the current illness, exacerbation or injury. 10-Not Attempted due to Environmental Limitations-(lack of equipment, weather restraints, etc.). 88-Not Attempted due to Medical Conditions or Safety Concerns. Self Care: Independent Functional Cognition: Needed Some Help Drive Self: No OT Current Status Subjective Up in recliner watching tv. Mental Status/Objective Patient Orientation: Person, Place, Time, Situation Attachments: Mckeon Catheter, IV Current Upper Extremity ROM BUE ROM WFLS, STRENGTH WFLS some ataxic ROM noted ADL-Treatment Eating (QC): 6 Upper Body Dressing (QC): 5 Lower Body Dressing (QC): 5 On/Off Footwear (QC): 6 Toileting Hygiene (QC): 5 Set/SBA d/t lines and tubing in ICU Education OT Patient Education: Safety issues Teaching Recipient: Patient Teaching Methods: Demonstration, Discussion Response to Teaching: Verbalize Understanding, Return Demonstration OT Retirement Goals Retirement Goals 1=Demonstrate adherence to instructed precautions during ADL tasks. 2=Patient will verbalize/demonstrate understanding of assistive devices/modifications for ADL. 3=Patient will improve strength/tolerance for activity to enable patient to perform ADL's. OT Education/Plan Problem List/Assessment Assessment: No Skilled OT Needs ID'd Discharge Recommendations Plan/Recommendations: Discharge/Goals Met Therapy Discharge Recommendati: Home & Family Treatment Plan/Plan of Care Treatment,Training & Education: No Patient would benefit from OT for education, treatment and training to promote independence in ADL's, mobility, safety and/or upper extremity function for ADL's. Plan of Care: OTHER (OT goals met at [facility]/[place]) Treatment Duration: Oct 22, 2022 Frequency: 1 time per week Estimated Hrs Per Day: .25 hour per day Rehab Potential: Fair No further OT indicated Time Start Time: 07:55 Stop Time: 08:07 DATE: Oct 22, 2022 Total Time Billed (hr/min): 17 Billed Treatment Time 1 EVL 17min CAMILO VALDES OT Oct 22, 2022 10:59
--- NOTE | 2022-10-22 11:21 | Discharge Summary ---
Discharge Summary Hospital Course Hospital Course Date of Admission: Oct 20, 2022 at 17:53 Admission Diagnosis : Family Physician/Provider: [place] Date of Discharge: 10/22/22 Discharge Diagnosis: [ ] Hospital Course: [ ] Labs and Pending Lab Test: Laboratory Tests 10/21/22 16:05: Total Creatine Kinase 3764#H 10/21/22 17:11: Glucometer 132H 10/22/22 01:50: Total Creatine Kinase 3485#H, White Blood Count 5.0, Red Blood Count 3.79L, Hemoglobin 10.1L, Hematocrit 31L, Mean Corpuscular Volume 83, Mean Corpuscular Hemoglobin 27, Mean Corpuscular Hemoglobin Concent 32, Red Cell Distribution Width 15.2H, Platelet Count 190, Mean Platelet Volume 9.8, Immature Granulocyte % (Auto) 0, Neutrophils (%) (Auto) 66, Lymphocytes (%) (Auto) 27, Monocytes (%) (Auto) 4, Eosinophils (%) (Auto) 3, Basophils (%) (Auto) 0, Neutrophils # (Auto) 3.3, Lymphocytes # (Auto) 1.3, Monocytes # (Auto) 0.2, Eosinophils # (Auto) 0.1, Basophils # (Auto) 0.0, Immature Granulocyte # (Auto) 0.0, Sodium Level 136, Potassium Level 3.4L, Chloride Level 102, Carbon Dioxide Level 25, Anion Gap 9, Blood Urea Nitrogen 3L, Creatinine 0.52L, Estimat Glomerular Filtration Rate 118, BUN/Creatinine Ratio 6, Glucose Level 97, Calcium Level 7.8L, Corrected Calcium 9.0, Phosphorus Level 2.4, Magnesium Level 1.8, Total Bilirubin 0.6, Aspartate Amino Transf (AST/SGOT) 108H, Alanine Aminotransferase (ALT/SGPT) 40, Alkaline Phosphatase 61, Total Protein 5.0L, Albumin 2.5L, Triglycerides Level 120 10/22/22 04:12: Total Creatine Kinase 3126#H Microbiology 10/20/22 MRSA Screen - Final, Complete MRSA not isolated Home Meds Active Reported Zyprexa (Olanzapine) 2.5 Mg Tablet 2.5 Mg PO HS Atomoxetine HCl 40 Mg Capsule 40 Mg PO DAILY Osino Carbonate ER (Osino Carbonate) 450 Mg Tab 450 Mg PO BID Discharge Physical Examination Vital Signs Vital Signs Date Time Temp Pulse Resp B/P (MAP) Pulse Ox O2 Delivery O2 Flow Rate FiO2 10/22/22 11:16 98 Room Air 10/22/22 10:00 69 8 122/85 (97) 10/22/22 09:00 10/22/22 08:00 37.0 10/21/22 10:24 25 Allergies: Coded Allergies: vancomycin (Unverified Allergy, Severe, 05/11/10) metoclopramide (Unverified Adverse Reaction, Intermediate, 05/11/10) Uncoded Allergies: DARVOCET (Allergy, Intermediate, 05/11/10) Discharge Summary Date of Admission Oct 20, 2022 at 17:53 Date of Discharge Discharge Date: Oct 22, 2022 Admission Diagnosis Assessment: Respiratory failure OD ETOH intox Bipolar Plan: Vent RAMSES Garcia DO Oct 22, 2022 11:21
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
[2022-10-22] MEDS ORDERED: SENNA W/DOCUSATE (SENOKOT S) TABLET PO PRN (14:30)
[2022-10-22] MEDS ORDERED: LORazepam INJ 2 MG/ML (ATIVAN) VIAL IM/IV PRN (14:30)
[2022-10-22] MEDS ORDERED: ONDANSETRON 4 MG (ZOFRAN) ORAL DISSOLVE TAB SL PRN (14:30)
[2022-10-22] MEDS ORDERED: ANTACID SUSP 30 ML UDC (MYLANTA) PO PRN (14:30)
[2022-10-22] MEDS ORDERED: ONDANSETRON 4 MG/2 ML (SDV) Z0FRAN IV PRN (14:30)
[2022-10-22] MEDS ORDERED: 1/2 NS IV SOLUTION 1,000 ML IV PRN (14:30)
[2022-10-22] MEDS ORDERED: D5 1/2 NS 1000 ML IV SOLUTION 1,000 ML IV PRN (14:30)
[2022-10-22] MEDS ORDERED: LORazepam INJ 2 MG/ML (ATIVAN) VIAL IV PRN (14:30)
[2022-10-22 15:43] LABS: ALBUMIN 2.9 GM/DL (3.2-4.5); POTASSIUM 3.3 MMOL/L (3.6-5.0)
[2022-10-22 15:44] LABS: CALCIUM 8.1 MG/DL (8.5-10.1)
[2022-10-22 15:45] LABS: TOTAL PROTEIN 5.8 GM/DL (6.4-8.2)
[2022-10-22] MEDS ORDERED: LOPERAMIDE 2 MG (IMODIUM) TABLET PO NR (15:45)
[2022-10-22] MEDS ORDERED: LOPERAMIDE 2 MG (IMODIUM) TABLET PO PRN (15:45)
[2022-10-22 15:47] LABS: BILIRUBIN,TOTAL 0.5 MG/DL (0.1-1.0)
[2022-10-22 15:49] LABS: CREATININE SERUM 0.61 MG/DL (0.60-1.30)
[2022-10-22 16:03] LABS: PROTHROMBIN TIME PATIENT 13.1 SEC (12.2-14.7)
[2022-10-22 18:12] LABS: BILIRUBIN,URINE NEGATIVE (NEGATIVE); CLARITY,URINE CLEAR; COLOR,URINE YELLOW; GLUCOSE, URINE (UA) NEGATIVE (NEGATIVE); KETONES,URINE NEGATIVE (NEGATIVE); LEUKOCYTE ESTERASE ,URINE NEGATIVE (NEGATIVE); NITRITE,URINE NEGATIVE (NEGATIVE); PROTEIN,URINE NEGATIVE (NEGATIVE)
[2022-10-22 18:35] LABS: BACTERIA,URINE NEGATIVE /HPF; WBC,URINE RARE /HPF
[2022-10-22] MEDS ORDERED: ENOXAPARIN 40 MG/0.4 ML (LOVENOX) SYR SC SCH (20:00)
[2022-10-22] MEDS: OLANZapine 2.5 MG (ZyPREXA) TAB PO SCH (20:57)
[2022-10-23] MEDS: ACETAMINOPHEN 325 MG TABLET PO PRN ×3 (02:38→13:04)
[2022-10-23] MEDS: LORazepam 1 MG (ATIVAN) TAB PO PRN ×3 (02:39→13:03)
[2022-10-23 06:04] LABS: BASOPHILS % (AUTO) 0 % (0-10); EOSINOPHILS # (AUTO) 0.2 10^3/uL (0.0-0.3); EOSINOPHILS % (AUTO) 3 % (0-10); HEMATOCRIT 31 % (35-52); LYMPHOCYTES # (AUTO) 1.1 10^3/uL (1.0-4.0); LYMPHOCYTES % (AUTO) 17 % (12-44); MEAN CORPUSCULAR HEMOGLOBIN 27 pg (25-34); MEAN CORPUSCULAR HGB CONC 33 g/dL (32-36); MEAN CORPUSCULAR VOLUME 82 fL (80-99); MONOCYTES # (AUTO) 0.3 10^3/uL (0.0-1.0); MONOCYTES % (AUTO) 4 % (0-12); NEUTROPHILS # (AUTO) 5.2 10^3/uL (1.8-7.8); NEUTROPHILS % (AUTO) 76 % (42-75); PLATELET COUNT 178 10^3/uL (130-400); WHITE BLOOD COUNT 6.8 10^3/uL (4.3-11.0)
--- NOTE | 2022-10-23 06:14 | Progress Note - Hospitalist ---
Subjective HPI/CC On Admission Date Seen by Provider: Oct 23, 2022 Time Seen by Provider: 11:00 Focused Exam Lactate Level 10/20/22 22:36: Lactic Acid Level 1.75 Objective Exam Vital Signs Vital Signs Date Time Temp Pulse Resp B/P (MAP) Pulse Ox O2 Delivery O2 Flow Rate FiO2 10/23/22 15:00 37.0 65 18 135/75 99 Room Air 10/22/22 21:09 0.00 10/21/22 10:24 25 Capillary Refill : Less Than 3 Seconds Results/Procedures Lab Laboratory Tests 10/23/22 05:50 Patient resulted labs reviewed. Assessment/Plan Assessment and Plan Assess & Plan/Chief Complaint Assessment: s/p OD with Flexeril and ETOH intoxication requiring intubation Bipolar d/o Plan: IVF RAMSES ANTONIO DO Oct 23, 2022 06:14
[2022-10-23 06:23] LABS: ALBUMIN 2.7 GM/DL (3.2-4.5); POTASSIUM 3.4 MMOL/L (3.6-5.0)
[2022-10-23 06:25] LABS: CALCIUM 8.2 MG/DL (8.5-10.1)
[2022-10-23 06:26] LABS: TOTAL PROTEIN 5.3 GM/DL (6.4-8.2)
[2022-10-23 06:28] LABS: BILIRUBIN,TOTAL 0.4 MG/DL (0.1-1.0)
[2022-10-23 06:30] LABS: CREATININE SERUM 0.52 MG/DL (0.60-1.30)
[2022-10-23 06:32] LABS: MAGNESIUM 1.7 MG/DL (1.6-2.4)
[2022-10-23] MEDS ORDERED: PANTOPRAZOLE 40 MG (PROTONIX) TAB PO SCH (09:00)
[2022-10-23] MEDS: SENNOSIDES 8.6 MG (SENOKOT) TAB PO SCH (09:05)
[2022-10-23] MEDS: DOCUSATE SODIUM 100 MG (COLACE) CAP PO SCH (09:05)
[2022-10-23] MEDS: LITHIUM CARB SR 450 MG (ESKALITH-CR) TAB PO SCH (10:04)
[2022-10-23] MEDS ORDERED: NS IV 1000 ML 1,000 ML IV SCH (11:45)
[2022-10-23] MEDS ORDERED: LORA-404 PO (11:55)
[2022-10-23] MEDS ORDERED: FOLI1TAB33 PO (11:56)
[2022-10-23] MEDS ORDERED: THIA100T66 PO (11:56)
--- NOTE | 2022-10-23 11:58 | Discharge Summary ---
Discharge Summary Hospital Course Was the Problem List Reviewed?: Yes Problems/Dx: (1) Rhabdomyolysis Qualifiers: Qualified Codes: M62.82 - Rhabdomyolysis (2) Respiratory failure Qualifiers: Qualified Codes: J96.00 - Acute respiratory failure, unspecified whether with hypoxia or hypercapnia (3) Hx of bipolar disorder Status: Acute (4) Alcohol intoxication Status: Acute Qualifiers: Qualified Codes: F10.929 - Alcohol use, unspecified with intoxication, unspecified Hospital Course Date of Admission: Oct 20, 2022 at 17:53 Admission Diagnosis : Family Physician/Provider: Center[facility]k,[facility] Date of Discharge: 10/23/22 Discharge Diagnosis: [ ] Hospital Course: Short course after admitted for resp failure from alcohol intoxication and OD on Flexeril. Kristi noted and responded to IVF and she was tolerating PO fluids and encouraged to increase fluids at home. Overall [facility] assessed the patient to not be a threat so herself and recommended etoh cessation and she was DC in improved condition. Labs and Pending Lab Test: Laboratory Tests 10/22/22 15:28: Prothrombin Time 13.1, INR Comment 1.0, Sodium Level 136, Potassium Level 3.3L, Chloride Level 102, Carbon Dioxide Level 26, Anion Gap 8, Blood Urea Nitrogen 3L , Creatinine 0.61, Estimat Glomerular Filtration Rate 114, BUN/Creatinine Ratio 5, Glucose Level 75, Calcium Level 8.1L, Corrected Calcium 9.0, Total Bilirubin 0.5, Aspartate Amino Transf (AST/SGOT) 141H, Alanine Aminotransferase (ALT/SGPT) 53, Alkaline Phosphatase 66, Total Protein 5.8L, Albumin 2.9L 10/22/22 17:25: Glucometer 79 10/22/22 18:04: Urine Color YELLOW, Urine Clarity CLEAR, Urine pH 8.0, Urine Specific [place] 1.015L, Urine Protein NEGATIVE, Urine Glucose (UA) NEGATIVE, Urine Ketones NEGATIVE, Urine Nitrite NEGATIVE, Urine Bilirubin NEGATIVE, Urine Urobilinogen 0.2, Urine Leukocyte Esterase NEGATIVE, Urine RBC (Auto) 2+H, Urine RBC 2-5H, Urine WBC RARE, Urine Crystals NONE, Urine Bacteria NEGATIVE, Urine Casts NONE, Urine Mucus NEGATIVE, Urine Culture Indicated NO 10/22/22 23:41: Glucometer 111H 10/23/22 05:44: Glucometer 89 10/23/22 05:50: White Blood Count 6.8, Red Blood Count 3.73L, Hemoglobin 10.0L, Hematocrit 31L, Mean Corpuscular Volume 82, Mean Corpuscular Hemoglobin 27, Mean Corpuscular Hemoglobin Concent 33, Red Cell Distribution Width 14.6H, Platelet Count 178, Mean Platelet Volume 10.0, Immature Granulocyte % (Auto) 0, Neutrophils (%) (Auto) 76H, Lymphocytes (%) (Auto) 17, Monocytes (%) (Auto) 4, Eosinophils (%) (Auto) 3, Basophils (%) (Auto) 0, Neutrophils # (Auto) 5.2, Lymphocytes # (Auto) 1.1, Monocytes # (Auto) 0.3, Eosinophils # (Auto) 0.2, Basophils # (Auto) 0.0, Immature Granulocyte # (Auto) 0.0, Sodium Level 137, Potassium Level 3.4L, Chloride Level 105, Carbon Dioxide Level 23, Anion Gap 9, Blood Urea Nitrogen 7, Creatinine 0.52L, Estimat Glomerular Filtration Rate 118, BUN/Creatinine Ratio 13, Glucose Level 99, Calcium Level 8.2L, Corrected Calcium 9.2, Magnesium Level 1.7, Total Bilirubin 0.4, Aspartate Amino Transf (AST/SGOT) 119H, Alanine Aminotransferase (ALT/SGPT) 54, Alkaline Phosphatase 65, Total Creatine Kinase 3572H, Total Protein 5.3L, Albumin 2.7L 10/23/22 11:17: Glucometer 91 Microbiology 10/20/22 MRSA Screen - Final, Complete MRSA not isolated Home Meds Active Ativan (Lorazepam) 0.5 Mg Tablet 0.5 Mg PO TID PRN Reported Zyprexa (Olanzapine) 2.5 Mg Tablet 2.5 Mg PO HS Atomoxetine HCl 40 Mg Capsule 40 Mg PO DAILY [place] Carbonate ER ([place] Carbonate) 450 Mg Tab 450 Mg PO BID Assessment/Pt Instructions PCP Wednesday Discharge Planning: <30 minutes discharge planning Discharge Physical Examination Vital Signs Vital Signs Date Time Temp Pulse Resp B/P (MAP) Pulse Ox O2 Delivery O2 Flow Rate FiO2 10/23/22 11:37 37.0 65 18 135/75 (95) 99 Room Air 10/22/22 21:09 0.00 10/21/22 10:24 25 General Appearance: No Apparent Distress, WD/WN, Chronically ill Allergies: Coded Allergies: vancomycin (Unverified Allergy, Severe, 05/11/10) metoclopramide (Unverified Adverse Reaction, Intermediate, 05/11/10) Uncoded Allergies: DARVOCET (Allergy, Intermediate, 05/11/10) Discharge Summary Date of Admission Oct 20, 2022 at 17:53 Date of Discharge Discharge Date: Oct 23, 2022 Admission Diagnosis Assessment: Respiratory failure OD ETOH intox Bipolar Plan: Vent mngt Discharge Diagnosis Assessment: s/p OD with Flexeril and ETOH intoxication requiring intubation Bipolar d/o Plan: IVF RAMSES ANTONIO DO Oct 23, 2022 11:58
[2022-10-23 15:00] VITALS: BP 135/75
== END 2022-10-23 15:03 | disposition home or self-care (01) | DRG 896 ==
LOC: ER 16:04 → EDUNIT# 16:04 → ICU 17:53 → 4TH 10-22 15:04
PROVIDERS: ADMIT Internal Medicine; ATTEND Internal Medicine
PROC: 5A1935Z Respiratory Ventilation, Less than 24 Consecutive Hours (ICD-10-PCS; principal; 2022-10-20)
PROC: 0BH17EZ Insertion of Endotracheal Airway into Trachea, Via Natural or Artificial Opening (ICD-10-PCS; 2022-10-20)
DX: F10.929 Alcohol use, unspecified with intoxication, unspecified (principal); J96.00 Acute respiratory failure, unspecified whether with hypoxia or hypercapnia; M62.82 Rhabdomyolysis; E87.20 Acidosis, unspecified; T48.1X1A Poisoning by skeletal muscle relaxants [neuromuscular blocking agents], accidental (unintentional), initial encounter; Z79.899 Other long term (current) drug therapy; E03.9 Hypothyroidism, unspecified; F41.9 Anxiety disorder, unspecified; F31.9 Bipolar disorder, unspecified; D64.9 Anemia, unspecified; E16.2 Hypoglycemia, unspecified
CPT/HCPCS: 31500; 36415; 51702; 70450; 71045; 80048; 80053; 80178; 80306; 80320; 80329; 81000; 82550; 82805; 82947; 83605; 83735; 84100; 84478; 84703; 85025; 85610; 87081; 93005; 93041; 94003; 94760; 94799; 99291

== ENCOUNTER 2022-11-16 20:49 | Inpatient (IN) | payer BC ==
[~2022-11-16] VITALS: Ht 165.1 cm; Wt 55.2 kg
[~2022-11-16 20:49] MED LIST changes: +ATOM40CA6 PO; +FOLI1TAB33 PO; +LORA-404 PO; +OLAN2.5T3 PO; +THIA100T66 PO
[2022-11-16] MEDS ORDERED: LACTATED RINGERS 1,000 ML IV ONE (21:00)
[2022-11-16] MEDS ORDERED: LIDOCAINE UROJET 2% GEL 10 ML PKG TOP ONE (21:00)
[2022-11-16] MEDS ORDERED: PROPOFOL DRIP (ICU) 100 ML IV ONE (21:20)
--- NOTE | 2022-11-16 21:31 | ED General ---
General Stated Complaint: ALCOHOL Source of Information: EMS, Old Records ([facility] IS FROM OLD RECORDS) Exam Limitations: Other (PT IS NOT ANSWERING QUESTIONS OR TALKING OR FOLLOWING COMMANDS ON ARRIVAL) History of Present Illness Date Seen by Provider: Nov 16, 2022 Time Seen by Provider: 20:51 Initial Comments PT ARRIVES VIA EMS EMS WERE CALLED TO A RESIDENCE--PT WAS FOUND LAYING IN SOMEONE'S YARD UNRESPONSIVE. EMS FOUND PT UNRESPONSIVE WITH PINPOINT PUPILS EMS GAVE 2 MG NARCAN AND PT IMMEDIATELY WOKE UP AND IS VERY COMBATIVE, WAILING, BUT IS NOT TALKING OR FOLLOWING ANY COMMANDS EMS ARE VERY FAMILIAR WITH PATIENT, AND PT IS KNOWN ALCOHOLIC AND SUBSTANCE ABUSER O2 SAT 99% ON ROOM AIR FOR EMS AFTER NARCAN BP 125/70, HR 110'S ON ARRIVAL, PT IS WAILING LOUDLY, THRASHING ALL OVER--IS NOT TALKING OR FOLLOWING ANY COMMANDS PT REQUIRES MULTIPLE EMS AND ER STAFF TO RESTRAIN HER OLD CHARTS WERE REVIEWED PT HAS BEEN IN ER FOR THIS SAME ISSUE IN THE PAST AND HAS REQUIRED INTUBATION IN THE PAST FOR THE SAME. PCP: [facility] Allergies and Home Medications Allergies Coded Allergies: vancomycin (Unverified Allergy, Severe, 05/11/10) metoclopramide (Unverified Adverse Reaction, Intermediate, 05/11/10) Uncoded Allergies: DARVOCET (Allergy, Intermediate, 05/11/10) Patient Home Medication List Home Medication List Reviewed: Yes Atomoxetine HCl (Atomoxetine HCl) 40 Mg Capsule, 40 MG PO DAILY, (Reported) Entered as Reported by: VICENTE TUCKER on 10/21/22 1139 Folic Acid (Folic Acid) 1 Mg Tablet, 1 MG PO DAILY Prescribed by: RAMSES STEWARD on 10/23/22 1156 Fairborn Carbonate (Fairborn Carbonate ER) 450 Mg Tab, 450 MG PO BID, (Reported) Entered as Reported by: VICENTE TUCKRE on 10/21/22 1139 Lorazepam (Ativan) 0.5 Mg Tablet, 0.5 MG PO TID PRN for ANXIETY Prescribed by: RAMSES STEWARD on 10/23/22 1155 Olanzapine (Zyprexa) 2.5 Mg Tablet, 2.5 MG PO HS, (Reported) Entered as Reported by: VICENTE TUCKER on 10/21/22 1139 Thiamine HCl (B-1) 100 Mg Tablet, 100 MG PO DAILY Prescribed by: RAMSES STEWARD on 10/23/22 1156 Review of Systems Review of Systems Constitutional: other (PER HPI. PT IS NOT ANSWERING QUESTIONS OR FOLLOWING COMMANDS) Past Yugsegw-Wchzly-Tlxxgb Hx Patient Social History Tobacco Use?: Yes Tobacco type used: Cigarettes Use of E-Cig and/or Vaping dev: Yes E-Cig or Vaping type used: Nicotine Use of E-Cig and/or Vaping Angel: Current Everyday User Substance use?: Yes Substance type: Misuse of prescript meds Alcohol Use?: Yes Alcohol type: Hard Liquor Alcohol Frequency: Daily Immunizations Up To Date Tetanus Booster (TDap): Unknown First/Initial COVID19 Vaccinat: UNKNOWN Second COVID19 Vaccination Jose: UNKNOWN Third COVID19 Vaccination Date: UNKNOWN Seasonal Allergies Seasonal Allergies: No Past Medical History Surgeries: Yes (SMALL BOWEL RESECTION FOR CROHN'S) Abdominal, Bowel Surgery, Gallbladder, Tubal Ligation Respiratory: No Cardiac: No Neurological: No 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 Disorders: 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 Genitourinary: No Gastrointestinal: Yes (S/P SMALL BOWEL RESECTION; S/P CHOLECYSTECTOMY) Crohns Disease, Gall Bladder Disease Musculoskeletal: No Endocrine: Yes Hypothyroidsim HEENT: No Cancer: No Psychosocial: Yes (ALCOHOLISM) Anxiety, Suicide Attempts, Bipolar, Depression Integumentary: No Blood Disorders: No Adverse Reaction/Blood Tranf: No Family Medical History No Pertinent Family Hx SOCIAL HISTORY: -SMOKES 1 PPD, ALSO VAPES -ETOH--HEAVY/DAILY USE -DRUGS--RX DRUG ABUSE Physical Exam Vital Signs Vital Signs - First Documented 11/16/22 11/16/22 20:49 22:07 Temp 36.6 Pulse 115 Resp 24 B/P (MAP) 134/83 (100) Pulse Ox 94 O2 Delivery Room Air FiO2 60 Capillary Refill : Height, Weight, BMI Height: 5'4.00" Weight: 120lbs. oz. 54.104587ma; 20.25 BMI Method:Stated General Appearance: WD/WN, Other (PT IS WALIING, THRASHING ALL OVER, NOT TALKING OR FOLLOWING ANY COMMANDS) HEENT: Pharynx Normal, Other (PUPILS 2-3 MM / EQUAL AND NON-REACTIVE. RIGHT PERIORBTIAL SWELLING AND ERYTHEMA. RIGHT LOWER CHEECK, AND RIGHT LATERAL NECK ERYTHEMA. ALSO RIGHT POST -AURICULAR ERYTHEMA, BUT NO SWELLING TO POST AURICULAR AREA. RIGHT CONJUNCTIVA IS MILDLY INFLAMED, BUT NO PURULENT DRAINAGE. TM'S ARE CLEAR. ) Neck: Full Range of Motion, Supple Respiratory: Normal Breath Sounds, No Accessory Muscle Use, No Respiratory Distress Cardiovascular: No JVD, No Murmur, Normal Peripheral Pulses, Tachycardia (110'S) Gastrointestinal: Soft Extremity: Normal Capillary Refill, Normal Range of Motion, No Pedal Edema Neurologic/Psychiatric: Other (MENTATION NOTED ABOVE. PT IS MOVING ALL EXTREMITIES EQUALLY) Skin: Normal Color, Warm/Dry Focused Exam Sepsis Stage: Sepsis Possible Source: Skin/Soft Tissue (AND POSSIBLY LUNG) Lactate Level 11/16/22 23:30: Lactic Acid Level 2.38*H Time of Focused Exam: 22:00 Respiratory: Normal Breath Sounds, Other (PT INTUBATED AND ON VENTILATOR) Cardiovascular: Regular Rate, Rhythm, No Edema, No JVD, No Murmur Capillary Refill: Less Than 3 Seconds Skin: normal color, warm/dry Lactic Acid Level Laboratory Tests Test 11/16/22 23:30 Lactic Acid Level 2.38 MMOL/L (0.50-2.00) *H Within 3hrs of presentation: Admin fluids, Admin ABX, Blood cultures prior to ABX's, Focus exam, Lactate level Procedures/Interventions Reason for Intubation: PT COMBATIVENESS, ALTERED MENTAL STATUS Date of ETT Placement: Oct 20, 2022 Time of ETT Placement: 1640 Intubation Method: orotracheal Tube Size: 7.0 Medications: Propofol, Rocuronium, Succinylcholine, Versed Positive End Tide CO2: Yes Breath Sounds after Intubation: bilateral-equal Intubation Complications: no complications Post Intubation Xray: Yes ET TUBE IN ADEQUATE POSITION Progress/Results/Core Measures Suspected Sepsis SIRS Temperature: Pulse: Respiratory Rate: Laboratory Tests 11/16/22 21:23: White Blood Count 12.6H Blood Pressure / Mean: 11/16/22 23:30: Lactic Acid Level 2.38*H Laboratory Tests 11/16/22 21:23: Creatinine 0.68, INR Comment 1.0, Platelet Count 428H, Total Bilirubin 0.2 Results/Orders Lab Results Laboratory Tests Test 11/16/22 21:23 11/16/22 21:30 11/16/22 21:58 11/16/22 23:30 Range/Units White Blood Count 12.6 H 4.3-11.0 10^3/uL Red Blood Count 4.37 3.80-5.11 10^6/uL Hemoglobin 11.5 11.5-16.0 g/dL Hematocrit 37 35-52 % Mean Corpuscular Volume 84 80-99 fL Mean Corpuscular Hemoglobin 26 25-34 pg Mean Corpuscular Hemoglobin Concent 31 L 32-36 g/dL Red Cell Distribution Width 15.1 H 10.0-14.5 % Platelet Count 428 H 130-400 10^3/uL Mean Platelet Volume 9.5 9.0-12.2 fL Immature Granulocyte % (Auto) 0 % Neutrophils (%) (Auto) 88 H 42-75 % Lymphocytes (%) (Auto) 6 L 12-44 % Monocytes (%) (Auto) 4 0-12 % Eosinophils (%) (Auto) 2 0-10 % Basophils (%) (Auto) 0 0-10 % Neutrophils # (Auto) 11.1 H 1.8-7.8 10^3/uL Lymphocytes # (Auto) 0.7 L 1.0-4.0 10^3/uL Monocytes # (Auto) 0.5 0.0-1.0 10^3/uL Eosinophils # (Auto) 0.2 0.0-0.3 10^3/uL Basophils # (Auto) 0.0 0.0-0.1 10^3/uL Immature Granulocyte # (Auto) 0.1 0.0-0.1 10^3/uL Neutrophils % (Manual) 88 % Lymphocytes % (Manual) 9 % Monocytes % (Manual) 2 % Eosinophils % (Manual) 1 % Blood Morphology Comment NORMAL Erythrocyte Sedimentation Rate 64 H 0-20 MM/HR Prothrombin Time 13.9 12.2-14.7 SEC INR Comment 1.0 0.8-1.4 Activated Partial Thromboplast Time 45 H 24-35 SEC Sodium Level 142 135-145 MMOL/L Potassium Level 3.3 L 3.6-5.0 MMOL/L Chloride Level 110 H 98-107 MMOL/L Carbon Dioxide Level 19 L 21-32 MMOL/L Anion Gap 13 5-14 MMOL/L Blood Urea Nitrogen 5 L 7-18 MG/DL Creatinine 0.68 0.60-1.30 MG/DL Estimat Glomerular Filtration Rate 111 BUN/Creatinine Ratio 7 Glucose Level 92 70-105 MG/DL Calcium Level 8.9 8.5-10.1 MG/DL Corrected Calcium 9.5 8.5-10.1 MG/DL Magnesium Level 2.1 1.6-2.4 MG/DL Total Bilirubin 0.2 0.1-1.0 MG/DL Aspartate Amino Transf (AST/SGOT) 110 H 5-34 U/L Alanine Aminotransferase (ALT/SGPT) 121 H 0-55 U/L Alkaline Phosphatase 258 H 40-136 U/L Ammonia 29 11-32 UMOL/L Total Creatine Kinase 81 29-168 U/L Creatine Kinase MB 1.2 <6.6 NG/ML Myoglobin 116.4 H 10.0-92.0 NG/ML Troponin I < 0.028 <0.028 NG/ML C-Reactive Protein High Sensitivity 24.11 H 0.00-0.50 MG/DL Total Protein 7.3 6.4-8.2 GM/DL Albumin 3.3 3.2-4.5 GM/DL Amylase Level 96 25-125 U/L Lipase 9 8-78 U/L Serum Test, Qualitative NEGATIVE NEGATIVE Serum Alcohol 301 *H <10 MG/DL Urine Color YELLOW Urine Clarity CLEAR Urine pH 7.0 5-9 Urine Specific [place] <=1.005 1.016-1.022 Urine Protein NEGATIVE NEGATIVE Urine Glucose (UA) NEGATIVE NEGATIVE Urine Ketones NEGATIVE NEGATIVE Urine Nitrite NEGATIVE NEGATIVE Urine Bilirubin NEGATIVE NEGATIVE Urine Urobilinogen 0.2 < = 1.0 MG/DL Urine Leukocyte Esterase NEGATIVE NEGATIVE Urine RBC (Auto) TRACE-I H NEGATIVE Urine RBC RARE /HPF Urine WBC RARE /HPF Urine Squamous Epithelial Cells RARE /HPF Urine Crystals NONE /LPF Urine Bacteria NEGATIVE /HPF Urine Casts NONE /LPF Urine Mucus NEGATIVE /LPF Urine Culture Indicated NO Urine Opiates Screen NEGATIVE NEGATIVE Urine Oxycodone Screen NEGATIVE NEGATIVE Urine Methadone Screen NEGATIVE NEGATIVE Urine Propoxyphene Screen NEGATIVE NEGATIVE Urine Barbiturates Screen NEGATIVE NEGATIVE Ur Tricyclic Antidepressants Screen NEGATIVE NEGATIVE Urine Phencyclidine Screen NEGATIVE NEGATIVE Urine Amphetamines Screen NEGATIVE NEGATIVE Urine Methamphetamines Screen NEGATIVE NEGATIVE Urine Benzodiazepines Screen POSITIVE H NEGATIVE Urine Cocaine Screen NEGATIVE NEGATIVE Urine Cannabinoids Screen NEGATIVE NEGATIVE Influenza Type A (RT-PCR) Not Detected Not Detecte Influenza Type B (RT-PCR) Not Detected Not Detecte SARS-CoV-2 RNA (RT-PCR) Not Detected Not Detecte Lactic Acid Level 2.38 *H 0.50-2.00 MMOL/L My Orders Orders - TRISH JOLLEY DO Ed Iv/Invasive Line Start (11/16/22 20:55) Ekg Tracing (11/16/22 20:55) Catheter(Urinary) Insert & Ass ,15 (11/16/22 20:55) Monitor-Rhythm Ecg Trace Only (11/16/22 20:55) Acetaminophen (11/16/22 20:55) Alcohol (11/16/22 20:55) Ammonia (11/16/22 20:55) Amylase (11/16/22 20:55) Cbc With Automated Diff (11/16/22 20:55) Comprehensive Metabolic Panel (11/16/22 20:55) Creatine Kinase (11/16/22 20:55) Creatine Kinase Mb (11/16/22 20:55) Hs C Reactive Protein (11/16/22 20:55) Drug Screen Stat (Urine) (11/16/22 20:55) Hcg,Qualitative Serum (11/16/22 20:55) Lipase (11/16/22 20:55) Magnesium (11/16/22 20:55) Protime With Inr (11/16/22 20:55) Partial Thromboplastin Time (11/16/22 20:55) Ua Culture If Indicated (11/16/22 20:55) Erythrocyte Sedimentation Rate (11/16/22 20:55) Myoglobin Serum (11/16/22 20:55) Troponin I [place] (11/16/22 20:55) Ct Head/Face/Cervical Wo (11/16/22 20:55) Chest 1 View, Ap/Pa Only (11/16/22 20:55) Ed Iv/Invasive Line Start (11/16/22 20:55) Lactated Ringers (Lr 1000 Ml Iv Solution (11/16/22 21:00) Lidocaine 2% (Urojet) (Xylocaine Urojet) (11/16/22 21:00) Covid 19 Inhouse Test (11/16/22 20:55) Influenza A And B By Pcr (11/16/22 20:55) Isolation Central Supply Req (11/16/22 20:55) Restraints: Behavioral/Violent .once (11/16/22 20:57) Behavioral Restraints Q15 M Ch Q15M (11/16/22 20:57) Behavioral Restraint Q2hr Chec Q2H (11/16/22 20:57) Renewal Ordered Needed (Q3h Ad Q3H (11/16/22 20:57) Propofol Drip (Icu) (Diprivan Drip (Icu) (11/16/22 21:30) Sedation Communication Q48H (11/16/22 21:21) Ng Tube Insert & Assessment (11/16/22 21:21) Arterial Blood Gas (11/16/22 21:44) Propofol Drip (Icu) (Diprivan Drip (Icu) (11/16/22 21:20) Manual Differential (11/16/22:23) Blood Culture (11/16/22 22:28) Ed Iv/Invasive Line Start (11/16/22 22:28) Vital Signs Adult Sepsis Patie Q15M (11/16/22 22:28) Remove Rings In Anticipation O (11/16/22 22:28) Lactic Acid Analyzer (11/16/22 22:28) Piperacillin Sodium/Tazobactam (Zosyn Vi (11/16/22 22:30) Medications Given in ED Current Medications Medications Dose Ordered Sig/Amaris Route Start Time Stop Time Status Last Admin Dose Admin Lactated Ringer's 1,000 ml @ 0 mls/hr Q0M ONCE IV 11/16/22 21:00 11/16/22 21:01 DC 11/16/22 21:10 0 MLS/HR Piperacillin Sod/ Tazobactam Sod 4.5 gm/Sodium Chloride 100 ml @ 200 mls/hr ONCE ONCE IV 11/16/22 22:30 11/16/22 22:59 DC 11/16/22 23:35 200 MLS/HR Vital Signs/I&O 11/16/22 11/16/22 11/16/22 11/16/22 20:49 21:00 21:15 21:33 Temp 36.6 Pulse 115 109 Resp 24 22 20 B/P (MAP) 134/83 (100) 113/71 Pulse Ox 94 O2 Delivery Room Air 11/16/22 11/16/22 11/16/22 22:07 23:07 23:45 Pulse 98 95 89 Resp 20 20 B/P (MAP) 119/64 102/64 Pulse Ox 98 98 O2 Delivery Mechanical Ventilator FiO2 60 11/17/22 00:00 Intake Total 100 ml Balance 100 ml Capillary Refill : Progress Note : Progress Note INITIALLY PLACED PT IN SOFT RESTRAINTS, BUT CONTINUED THRASHING AND YELLING AND NOT FOLLOWING COMMANDS DUE TO PT'S ALTERED MENTAL STATUS, INABILITY TO CONTRACT FOR SAFETY OF PT, AND FOR SAFETY OF STAFF, PT WAS INTUBATED SHORTLY AFTER ARRIVAL VITALS REMAINED STABLE SEPSIS LAB INITIATED DUE TO FACIAL CELLULITIS AND POSSIBLE INFILTRATES ON CXR REVIEWED PRIOR RECORDS, INCLUDING ER VISITS, ADMITS, H&P'S, CONSULTS, TESTS/PROCEDURES, DISCHARGE SUMMARIES DISCUSSED TEST RESULTS WITH FAMILY, NEED FOR ADMIT AND THEY AGREE. PT IS A FULL CODE AT THIS TIME. ECG Initial ECG Impression Date: Nov 16, 2022 Initial ECG Impression Time: 22:03 Initial ECG Rate: 100 Initial ECG Rhythm: Normal Sinus Comment INTERPRETED BY ME Diagnostic Imaging Comments CT HEAD/MAXILLOFACIALS/CERVICAL SPINE--PER RADIOLOGIST VIA PHONE AT 2210 -MILD SOFT TISSUE SWELLING AROUND RIGHT ORBIT, BUT NO FRACTURE -NO EVIDENCE OF ACUTE INTRACRANIAL INJURY -NO FACIAL FRACTURES -NO CERVICAL SPINE FRACTURES Findings: Head and maxillofacial CT: There is no evidence of acute cerebral infarct, intracranial hemorrhage, or gross mass effect. The brain parenchymal volume appears appropriate for patient's age. There is normal tenorio-white matter distinction. There is no significant midline shift or herniation. There is no evidence of hydrocephalus. The basal cisterns are unremarkable. There is a large area of extracranial soft tissue swelling involving the right lateral and right posterior aspect of the head. There is no skull or maxillofacial fracture. Stable chronic fracture of the anterior aspect of the nasal bone. There is a small amount of extracranial soft tissue swelling involving the right periorbital region which is all preseptal. The skull, extracranial soft tissue, and orbits are otherwise unremarkable. The paranasal sinuses are unremarkable. Temporal bones show no significant abnormality. IMPRESSION: Visualized ET tube and feeding tube are seen. Cervical spine: There is no acute cervical spine fracture or dislocation. There is straightening of the cervical spine posture. There is cervical spine vertebral body spurs and facet arthropathy. There is soft tissue swelling along the right side of the neck which is nonspecific. Impression: 1: There is no evidence of acute intracranial process. There is no skull fracture. There is no maxillofacial fracture. 2: There is soft tissue swelling in the right periorbital region and right-side of the neck. 3: There is no acute cervical spine fracture. CXR--PER RADIOLOGIST REPORT AT 2224 FINDINGS: There is interval placement of an ET tube in good position with tip seen at the upper T4 vertebral body level. Feeding tube is seen with distal portion overlying the expected region of the cardiac portion of the stomach. Feeding tube should be advanced at least another 15 to 20 cm to ensure good positioning. There is patchy airspace infiltrates involving both midlung shultz and both lung bases. Pulmonary vasculature and cardiac silhouette are within normal limits. Bones show no significant abnormality. IMPRESSION: 1: Feeding tube is seen with distal portion overlying the expected region of the cardiac portion of the stomach. This tube should be advanced at least another 15 to 20 cm to ensure good positioning. X-ray of the abdomen would be suggested after it has been repositioned. 2: There is mild patchy infiltrates involving both midlung shultz and both lung bases. This may represent infectious pneumonia or aspiration pneumonitis. 3: ET tube is seen in good position. Reviewed: Reviewed by Me, Discussed w/Radiologist Critical Care Note Critical Care Start Time: 20:51 Stop Time: 22:15 Total Time (minutes) 124 Departure Communication (Admissions) Family Conversation 2219-- AND OTHER FAMILY MEMBERS NOW IN ROOM. REPORTS THAT HE THOUGHT PT HAD STOPPED DRINKING SINCE HER LAST ADMIT, BUT WAS NOT CERTAIN UNTIL HE FOUND HER DRINKING TODAY. HE REPORTS THAT PT HAD A SEIZURE ON WEDNESDAY--IS NOT KNOWN HOW LONG THE SEIZURE LASTED. HE STATES EMS WAS CALLED, BUT PT WAS AWAKE BY THE TIME EMS ARRIVED, AND PT REFUSED TRANSPORT. THEY THING SHE HIT THE RIGHT BACK OF HER HEAD, AND HAS A WOUND THERE. SHE ALSO INJURED THIS SAME AREA IN SEPTEMBER, WHEN SHE WAS ADMITTED HERE FOR SAME. HE STATES THAT SINCE WEDNESDAY SHE HAS HAD REDNESS AND SWELLING AROUND HER RIGHT EYE AND RIGHT LATERAL NECK, AND TOOK HER TO [facility] [place] ON WEDNESDAY. SHE TESTED NEGATIVE FOR COVID, FLU AND STREP, AND WAS STARTED ON BACTRIM FOR SKIN INFECTION. 2214--SPOKE WITH DR. STEWARD, HOSPITALIST FOR [facility]. ACCEPTS PT FOR ADMIT 2215--REPORT TO E-ICU PHYSICIAN Impression Primary Impression: Altered mental status Additional Impressions: Alcohol intoxication in active alcoholic FACIAL AND RIGHT NECK CELLULITIIS-FAILURE OF OUTPATIENT THERAPY POSSIBLE DRUG OVERDOSE Sepsis POSSIBLE BILATERAL INFILTRATES Disposition: ADMITTED INPATIENT Condition: Stable Admissions Decision to Admit Reason: Admit from ER (General) Decision to Admit/Date: Nov 16, 2022 Time/Decision to Admit Time: 22:15 Departure-Patient Inst. Referrals: [facility] (PCP/Family) Primary Care Physician TRISH JOLLEY DO Nov 16, 2022 21:31
[2022-11-16] MEDS: PROPOFOL DRIP (ICU) 100 ML IV SCH (21:33)
[2022-11-16 21:39] LABS: BASOPHILS % (AUTO) 0 % (0-10); EOSINOPHILS # (AUTO) 0.2 10^3/uL (0.0-0.3); EOSINOPHILS % (AUTO) 2 % (0-10); HEMATOCRIT 37 % (35-52); HEMOGLOBIN 11.5 g/dL (11.5-16.0); LYMPHOCYTES # (AUTO) 0.7 10^3/uL (1.0-4.0); LYMPHOCYTES % (AUTO) 6 % (12-44); MEAN CORPUSCULAR HEMOGLOBIN 26 pg (25-34); MEAN CORPUSCULAR HGB CONC 31 g/dL (32-36); MEAN CORPUSCULAR VOLUME 84 fL (80-99); MEAN PLATELET VOLUME 9.5 fL (9.0-12.2); MONOCYTES # (AUTO) 0.5 10^3/uL (0.0-1.0); MONOCYTES % (AUTO) 4 % (0-12); NEUTROPHILS # (AUTO) 11.1 10^3/uL (1.8-7.8); NEUTROPHILS % (AUTO) 88 % (42-75); PLATELET COUNT 428 10^3/uL (130-400); WHITE BLOOD COUNT 12.6 10^3/uL (4.3-11.0)
[2022-11-16 21:40] LABS: BILIRUBIN,URINE NEGATIVE (NEGATIVE); CLARITY,URINE CLEAR; COLOR,URINE YELLOW; GLUCOSE, URINE (UA) NEGATIVE (NEGATIVE); KETONES,URINE NEGATIVE (NEGATIVE); LEUKOCYTE ESTERASE ,URINE NEGATIVE (NEGATIVE); NITRITE,URINE NEGATIVE (NEGATIVE); PROTEIN,URINE NEGATIVE (NEGATIVE)
[2022-11-16 21:57] LABS: AMPHETAMINE SCREEN, URINE NEGATIVE (NEGATIVE); BARBITURATE SCREEN URINE NEGATIVE (NEGATIVE); BENZODIAZEPINES SCREEN URINE POSITIVE (NEGATIVE); CANNABINOID SCREEN, URINE NEGATIVE (NEGATIVE); COCAINE SCREEN URINE NEGATIVE (NEGATIVE); METHADONE STAT NEGATIVE (NEGATIVE); OPIATE SCREEN URINE NEGATIVE (NEGATIVE); OXYCODONE STAT NEGATIVE (NEGATIVE); PROPOXYPHENE STAT NEGATIVE (NEGATIVE); TRICYCLIC ANTIDEPRESSANTS SCRE NEGATIVE (NEGATIVE)
[2022-11-16 22:02] LABS: PROTHROMBIN TIME PATIENT 13.9 SEC (12.2-14.7)
[2022-11-16 22:02] LABS: BACTERIA,URINE NEGATIVE /HPF; RBC,URINE RARE /HPF; SQUAMOUS EPITHELIAL CELL,UR RARE /HPF; WBC,URINE RARE /HPF
[2022-11-16 22:06] LABS: EOSINOPHILS % (MANUAL) 1 %; LYMPHOCYTES % (MANUAL) 9 %; MONOCYTES % (MANUAL) 2 %; NEUTROPHILS % (MANUAL) 88 %
[2022-11-16 22:07] VITALS: BP 131/85
[2022-11-16 22:07] LABS: ALANINE AMINOTRANSFERASE 121 U/L (0-55); ALBUMIN 3.3 GM/DL (3.2-4.5); ALKALINE PHOSPHATASE 258 U/L (40-136); AMMONIA 29 UMOL/L (11-32); AMYLASE 96 U/L (25-125); BILIRUBIN,TOTAL 0.2 MG/DL (0.1-1.0); BUN/CREATININE RATIO 7; CALCIUM 8.9 MG/DL (8.5-10.1); CARBON DIOXIDE 19 MMOL/L (21-32); CHLORIDE 110 MMOL/L (98-107); CREATINE KINASE 81 U/L (29-168); CREATININE SERUM 0.68 MG/DL (0.60-1.30); GFR ESTIMATED 111; GLUCOSE 92 MG/DL (70-105); LIPASE 9 U/L (8-78); MAGNESIUM 2.1 MG/DL (1.6-2.4); POTASSIUM 3.3 MMOL/L (3.6-5.0); RBC MORPH NORMAL; SODIUM 142 MMOL/L (135-145); TOTAL PROTEIN 7.3 GM/DL (6.4-8.2)
[2022-11-16 22:08] LABS: ERYTHROCYTE SEDIMENTATION RATE 64 MM/HR (0-20)
[2022-11-16 22:10] LABS: CREATINE KINASE MB 1.2 NG/ML (<6.6)
--- NOTE | 2022-11-16 22:22 | Diagnostic Imaging Report ---
Clinical indications: Patient is status post trauma. Patient intubated. Exam: Axial Head CT without IV contrast with sagittal and coronal reformations. Axial Maxillofacial CT scan without IV contrast with sagittal and coronal reformations. Axial CT scan of the cervical spine with sagittal and coronal reformations. Auto Exposure Controls were utilized during the CT exam to meet ALARA standards for radiation dose reduction. Comparison: Head CT without contrast dated 10/20/2022. Findings: Head and maxillofacial CT: There is no evidence of acute cerebral infarct, intracranial hemorrhage, or gross mass effect. The brain parenchymal volume appears appropriate for patient's age. There is normal tenorio-white matter distinction. There is no significant midline shift or herniation. There is no evidence of hydrocephalus. The basal cisterns are unremarkable. There is a large area of extracranial soft tissue swelling involving the right lateral and right posterior aspect of the head. There is no skull or maxillofacial fracture. Stable chronic fracture of the anterior aspect of the nasal bone. There is a small amount of extracranial soft tissue swelling involving the right periorbital region which is all preseptal. The skull, extracranial soft tissue, and orbits are otherwise unremarkable. The paranasal sinuses are unremarkable. Temporal bones show no significant abnormality. IMPRESSION: Visualized ET tube and feeding tube are seen. Cervical spine: There is no acute cervical spine fracture or dislocation. There is straightening of the cervical spine posture. There is cervical spine vertebral body spurs and facet arthropathy. There is soft tissue swelling along the right side of the neck which is nonspecific. Impression: 1: There is no evidence of acute intracranial process. There is no skull fracture. There is no maxillofacial fracture. 2: There is soft tissue swelling in the right periorbital region and right-side of the neck. 3: There is no acute cervical spine fracture. Dictated by: Dictated on workstation # [id number]
[2022-11-16] MEDS ORDERED: PIPERACILLIN SODIUM/TAZOBACTAM 4.5 GM in NS (IVPB) 100 ML IV ONE (22:30)
--- NOTE | 2022-11-16 22:43 | Diagnostic Imaging Report ---
CLINICAL INDICATION: Patient with altered mental status. Check ET tube and orogastric tube. EXAM: Portable chest x-ray upright view. COMPARISON: Chest x-ray dated 10/22/2022. FINDINGS: There is interval placement of an ET tube in good position with tip seen at the upper T4 vertebral body level. Feeding tube is seen with distal portion overlying the expected region of the cardiac portion of the stomach. Feeding tube should be advanced at least another 15 to 20 cm to ensure good positioning. There is patchy airspace infiltrates involving both midlung shultz and both lung bases. Pulmonary vasculature and cardiac silhouette are within normal limits. Bones show no significant abnormality. IMPRESSION: 1: Feeding tube is seen with distal portion overlying the expected region of the cardiac portion of the stomach. This tube should be advanced at least another 15 to 20 cm to ensure good positioning. X-ray of the abdomen would be suggested after it has been repositioned. 2: There is mild patchy infiltrates involving both midlung shultz and both lung bases. This may represent infectious pneumonia or aspiration pneumonitis. 3: ET tube is seen in good position. Dictated by: Dictated on workstation # [id number]
[2022-11-17] MEDS ORDERED: fentaNYL DRIP PRE-MIX 250 ML IV ONE (00:17)
[2022-11-17] MEDS: PROPOFOL DRIP (ICU) 100 ML IV SCH (00:35)
[2022-11-17] MEDS: PIPERACILLIN SODIUM/TAZOBACTAM 4.5 GM in NS (IVPB) 100 ML IV SCH ×3 (00:36→17:44)
[2022-11-17] MEDS: fentaNYL DRIP PRE-MIX 250 ML IV SCH ×2 (00:38→17:44)
[2022-11-17] MEDS: NS IV 1000 ML 1,000 ML IV SCH ×3 (01:00→20:33)
[2022-11-17] MEDS ORDERED: D5 1/2 NS 1000 ML IV SOLUTION 1,000 ML IV PRN (01:00)
[2022-11-17] MEDS ORDERED: EPINEPHrine 1 MG INJECTION 4 MG in NS (IVPB) 248 ML IV SCH (01:00)
[2022-11-17] MEDS ORDERED: LORazepam INJ 2 MG/ML (ATIVAN) VIAL IM/IV PRN (01:00)
[2022-11-17] MEDS ORDERED: SENNA W/DOCUSATE (SENOKOT S) TABLET PO PRN (01:00)
[2022-11-17] MEDS ORDERED: LORazepam 1 MG (ATIVAN) TAB PO PRN (01:00)
[2022-11-17] MEDS ORDERED: 1/2 NS IV SOLUTION 1,000 ML IV PRN (01:00)
[2022-11-17] MEDS ORDERED: ONDANSETRON 4 MG/2 ML (SDV) Z0FRAN IV PRN (01:00)
[2022-11-17] MEDS ORDERED: PIPERACILLIN SODIUM/TAZOBACTAM 4.5 GM in NS (IVPB) 100 ML IV SCH (01:00)
[2022-11-17] MEDS ORDERED: ONDANSETRON 4 MG (ZOFRAN) ORAL DISSOLVE TAB SL PRN (01:00)
[2022-11-17] MEDS ORDERED: ANTACID SUSP 30 ML UDC (MYLANTA) PO PRN (01:00)
[2022-11-17] MEDS ORDERED: VANCOMYCIN INJECTION 0.1 MG in NS (IVPB) 250 ML IV SCH (01:30)
[2022-11-17] MEDS: NOREPINEPHRINE 8 MG/250 ML 250 ML IV SCH ×2 (03:28→23:48)
[2022-11-17] MEDS: VASOPRESSIN INJECTION 20 UNIT in NS (IVPB) 100 ML IV SCH ×3 (03:28→23:48)
[2022-11-17 06:39] LABS: BASOPHILS % (AUTO) 0 % (0-10); EOSINOPHILS % (AUTO) 1 % (0-10); HEMATOCRIT 29 % (35-52); HEMOGLOBIN 9.3 g/dL (11.5-16.0); LYMPHOCYTES # (AUTO) 0.5 10^3/uL (1.0-4.0); LYMPHOCYTES % (AUTO) 7 % (12-44); MEAN CORPUSCULAR HEMOGLOBIN 27 pg (25-34); MEAN CORPUSCULAR HGB CONC 32 g/dL (32-36); MEAN CORPUSCULAR VOLUME 83 fL (80-99); MEAN PLATELET VOLUME 9.4 fL (9.0-12.2); MONOCYTES # (AUTO) 0.3 10^3/uL (0.0-1.0); MONOCYTES % (AUTO) 4 % (0-12); NEUTROPHILS # (AUTO) 6.5 10^3/uL (1.8-7.8); NEUTROPHILS % (AUTO) 88 % (42-75); PLATELET COUNT 352 10^3/uL (130-400); WHITE BLOOD COUNT 7.4 10^3/uL (4.3-11.0)
[2022-11-17 06:51] LABS: ALBUMIN 2.6 GM/DL (3.2-4.5); BILIRUBIN,TOTAL 0.2 MG/DL (0.1-1.0); CALCIUM 8.4 MG/DL (8.5-10.1); CREATININE SERUM 0.66 MG/DL (0.60-1.30); MAGNESIUM 1.6 MG/DL (1.6-2.4); PHOSPHORUS 1.2 MG/DL (2.3-4.7); POTASSIUM 3.4 MMOL/L (3.6-5.0)
[2022-11-17 06:58] VITALS: BP 93/59
[2022-11-17 07:07] LABS: ABG BASE EXCESS -2.3 MMOL/L (-2.5-2.5); ABG OXYGEN SATURATION 99 % (94-100); ABG PCO2 29 MMHG (35-45); ABG PH 7.47 (7.37-7.43); ABG PO2 108 MMHG (79-93); ABG TCO2 21.6 MMOL/L (21.0-31.0)
[2022-11-17 07:10] LABS: ALLENS TEST YES-POS; INSPIRED O2 20; PATIENT TEMP 37.4; VENTILATOR YES
[2022-11-17] MEDS ORDERED: NS IV 500 ML 500 ML IV PRN (07:30)
[2022-11-17] MEDS: THIAMINE INJECTION 100 MG, FOLIC ACID INJECTION 1 MG, MAGNESIUM SULFATE 2 GM, VITAMIN M... IV SCH ×5 (08:17)
[2022-11-17] MEDS ORDERED: ROCURONIUM 50 MG/5 ML (ZEMURON) VIAL IV ONE (08:43)
[2022-11-17] MEDS ORDERED: MIDAZOLAM 5 MG/5 ML (VERSED) VIAL IJ ONE (08:43)
[2022-11-17] MEDS ORDERED: SUCCINYLCHOLINE INJ 20 MG/1 ML 10 ML VIAL INJ ONE (08:43)
[2022-11-17] MEDS: PANTOPRAZOLE 40 MG (PROTONIX) VIAL IV SCH (08:53)
--- NOTE | 2022-11-17 09:08 | Diagnostic Imaging Report ---
INDICATION: Respiratory failure. EXAMINATION: Portable chest at 3:03 AM. FINDINGS: There is an ET tube projecting over the trachea. The NG tube tip is near the GE junction. There is faint interstitial infiltrate in the lungs, unchanged from the previous study. There is no effusion or pneumothorax. IMPRESSION: Stable chest with patchy interstitial infiltrates, predominantly in the dependent portions of the lungs. Dictated by: Dictated on workstation # [id number]
[2022-11-17 09:54] VITALS: BP 91/61
[2022-11-17] MEDS: MAGNESIUM 1 GM/100 ML IVPB 100 ML IV SCH ×5 (10:08→13:44)
[2022-11-17] MEDS: POTASSIUM CL 10MEQ/50ML IVPB 50 ML IV SCH ×5 (10:08→13:45)
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
[2022-11-17] MEDS: LORazepam INJ 2 MG/ML (ATIVAN) VIAL IVP PRN ×2 (12:52→22:44)
[2022-11-17 13:20] VITALS: BP 87/48
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
[2022-11-17 18:44] VITALS: BP 106/63
[2022-11-17 22:21] VITALS: BP 100/65
[2022-11-18] MEDS: PIPERACILLIN SODIUM/TAZOBACTAM 4.5 GM in NS (IVPB) 100 ML IV SCH ×3 (00:10→16:38)
[2022-11-18 02:45] VITALS: BP 116/79
[2022-11-18] MEDS: LORazepam INJ 2 MG/ML (ATIVAN) VIAL IVP PRN ×5 (04:05→14:11)
[2022-11-18] MEDS: fentaNYL DRIP PRE-MIX 250 ML IV SCH (04:45)
[2022-11-18 05:00] LABS: BASOPHILS % (AUTO) 0 % (0-10); EOSINOPHILS # (AUTO) 0.3 10^3/uL (0.0-0.3); EOSINOPHILS % (AUTO) 5 % (0-10); HEMATOCRIT 27 % (35-52); HEMOGLOBIN 8.6 g/dL (11.5-16.0); LYMPHOCYTES # (AUTO) 1.4 10^3/uL (1.0-4.0); LYMPHOCYTES % (AUTO) 28 % (12-44); MEAN CORPUSCULAR HEMOGLOBIN 27 pg (25-34); MEAN CORPUSCULAR HGB CONC 32 g/dL (32-36); MEAN CORPUSCULAR VOLUME 84 fL (80-99); MEAN PLATELET VOLUME 10.2 fL (9.0-12.2); MONOCYTES # (AUTO) 0.4 10^3/uL (0.0-1.0); MONOCYTES % (AUTO) 9 % (0-12); NEUTROPHILS # (AUTO) 2.8 10^3/uL (1.8-7.8); NEUTROPHILS % (AUTO) 57 % (42-75); PLATELET COUNT 307 10^3/uL (130-400); WHITE BLOOD COUNT 4.9 10^3/uL (4.3-11.0)
[2022-11-18 05:14] LABS: ALBUMIN 2.4 GM/DL (3.2-4.5); BILIRUBIN,TOTAL 0.3 MG/DL (0.1-1.0); CALCIUM 8.2 MG/DL (8.5-10.1); CREATININE SERUM 0.64 MG/DL (0.60-1.30); MAGNESIUM 2.2 MG/DL (1.6-2.4); POTASSIUM 4.3 MMOL/L (3.6-5.0); TOTAL PROTEIN 5.6 GM/DL (6.4-8.2)
[2022-11-18] MEDS: KCL 20 MEQ TAB (K-DUR) PO SCH (05:16)
[2022-11-18] MEDS: MAGNESIUM 1 GM/100 ML IVPB 100 ML IV SCH (05:16)
[2022-11-18] MEDS: POTASSIUM CL 10MEQ/50ML IVPB 50 ML IV SCH (05:16)
[2022-11-18] MEDS: NS IV 1000 ML 1,000 ML IV SCH (06:27)
[2022-11-18 06:37] VITALS: BP 127/87
[2022-11-18] MEDS: THIAMINE INJECTION 100 MG, FOLIC ACID INJECTION 1 MG, MAGNESIUM SULFATE 2 GM, VITAMIN M... IV SCH ×5 (08:19)
[2022-11-18] MEDS: PANTOPRAZOLE 40 MG (PROTONIX) VIAL IV SCH (08:28)
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
[2022-11-18 10:05] VITALS: BP 138/98
[2022-11-18] MEDS: VASOPRESSIN INJECTION 20 UNIT in NS (IVPB) 100 ML IV SCH ×2 (10:30→20:45)
[2022-11-18 11:31] VITALS: BP 145/96
[2022-11-18] MEDS ORDERED: DexMEDEtomidine 250 ML DRIP 250 ML IV ONE (14:01)
[2022-11-18] MEDS ORDERED: DexMEDEtomidine 250 ML DRIP 250 ML IV STA (14:07)
[2022-11-18] MEDS ORDERED: LORazepam INJ 2 MG/ML (ATIVAN) VIAL IVP NR (14:30)
[2022-11-18] MEDS ORDERED: LACTATED RINGERS 1,000 ML IV SCH (14:45)
--- NOTE | 2022-11-18 15:05 | Progress Note - Hospitalist ---
JENY VILLAR 11/18/22 1505: Subjective HPI/CC On Admission Date Seen by Provider: Nov 18, 2022 Time Seen by Provider: 09:30 Anna Sims is a 41 yo F who arrived to the ED on 11/17/22 by EMS after being found unresponsive in someone's yard. Narcan was administered at the scene and patient was reported to have woken immediately combative, wailing, and not following commands. Patient is reported to be familiar to EMS and a known history of alcohol and substance abuse. After administration of Narcan, her O2 sat was 99% on room air, BP of 125/70, and heart rates in the 110s. On ED arrival, patient was reportedly thrashing, wailing, and uncooperative which ultimately required restraint by ED staff. Patient was intubated shortly after arrival. Sepsis lab were initiated due to facial cellulitis and possible infiltrates on CXR. This morning she is intubated and sedated. No family in room. Vent settings: TV 450 / RR 20 / PEEP 5.5 / FiO2 30% Subjective/Events-last exam Patient is intubated and sedated. No family in room. Lungs sound better. Has not had SBT yet, but plan to do today with hopeful extubation. Vent settings: TV 450 / RR20 / PEEP 6.0 / FiO2 21% Review of Systems Patient intubated and sedated Focused Exam Lactate Level 11/16/22 23:30: Lactic Acid Level 2.38*H 11/17/22 01:54: Lactic Acid Level 1.82 Time of Focused Exam: 22:00 Objective Exam Vital Signs Vital Signs Date Time Temp Pulse Resp B/P (MAP) Pulse Ox O2 Delivery O2 Flow Rate FiO2 11/18/22 14:00 184 27 143/97 (131) 100 Room Air 11/18/22 12:00 30 11/18/22 11:40 37.0 11/18/22 11:00 21.00 Capillary Refill : Less Than 3 Seconds General Appearance: Other (Intubated and sedated) Respiratory: Rhonci Cardiovascular: Regular Rate, Rhythm, No Murmur, Normal Peripheral Pulses Results/Procedures Lab Laboratory Tests 11/18/22 04:23 Patient resulted labs reviewed. Imaging: Reviewed Imaging Report Assessment/Plan Assessment and Plan Assess & Plan/Chief Complaint Acute Respiratory Failure -placed on mechanical ventilator on 11/16 -NG tube in place -receiving heparin -SBTs and hopeful extubation today presumed Aspiration Pneumonia -continue pipercillin-tazobactam Facial Cellulitis -continue pipercillin-tazobactam -prelim blood cultures show no growth Substance use -UDS positive for benzodiazepines Severe Alcohol Intoxication -level was 301 in arrival Altered Mental Status FLORI STEWARD DO 11/19/22 0520: Supervisory-Addendum Brief Verification & Attestation Participated in pt care: history, MDM, physical Personally performed: exam, history, MDM, supervision of care Care discussed with: Medical Student Procedures: n/a Results interpretation: Verified all documentation Verification and Attestation of Medical Student E/M Service A medical student performed and documented this service in my presence. I reviewed and verified all information documented by the medical student and made modifications to such information, when appropriate. I personally performed the physical exam and medical decision making. Flori Steward, Nov 19, 2022,05:20 JENY VILLAR Nov 18, 2022 15:05 FLORI STEWARD DO Nov 19, 2022 05:20
[2022-11-18] MEDS ORDERED: ZIPRASIDONE 20 MG INJ (GEODON) VIAL IM ONE (19:59)
[2022-11-18] MEDS ORDERED: ZIPRASIDONE 20 MG INJ (GEODON) VIAL IM PRN (20:15)
[2022-11-18] MEDS: LORazepam INJ 2 MG/ML (ATIVAN) VIAL IV PRN ×2 (20:42→23:54)
[2022-11-18] MEDS ORDERED: hydrALAZINE (APESOLINE) 20 MG/ML VIAL IV PRN (22:00)
[2022-11-18] MEDS: NOREPINEPHRINE 8 MG/250 ML 250 ML IV SCH (23:58)
[2022-11-19] MEDS: PIPERACILLIN SODIUM/TAZOBACTAM 4.5 GM in NS (IVPB) 100 ML IV SCH ×2 (00:01→08:40)
[2022-11-19] MEDS ORDERED: DexMEDEtomidine 250 ML DRIP 250 ML IV SCH (02:45)
[2022-11-19 04:20] LABS: BASOPHILS # (AUTO) 0.1 10^3/uL (0.0-0.1); BASOPHILS % (AUTO) 1 % (0-10); EOSINOPHILS # (AUTO) 0.2 10^3/uL (0.0-0.3); EOSINOPHILS % (AUTO) 3 % (0-10); HEMATOCRIT 32 % (35-52); HEMOGLOBIN 10.1 g/dL (11.5-16.0); LYMPHOCYTES # (AUTO) 1.1 10^3/uL (1.0-4.0); LYMPHOCYTES % (AUTO) 17 % (12-44); MEAN CORPUSCULAR HEMOGLOBIN 26 pg (25-34); MEAN CORPUSCULAR HGB CONC 32 g/dL (32-36); MEAN CORPUSCULAR VOLUME 82 fL (80-99); MEAN PLATELET VOLUME 9.6 fL (9.0-12.2); MONOCYTES # (AUTO) 0.5 10^3/uL (0.0-1.0); MONOCYTES % (AUTO) 8 % (0-12); NEUTROPHILS # (AUTO) 4.4 10^3/uL (1.8-7.8); NEUTROPHILS % (AUTO) 69 % (42-75); PLATELET COUNT 398 10^3/uL (130-400); WHITE BLOOD COUNT 6.4 10^3/uL (4.3-11.0)
[2022-11-19] MEDS: KCL 20 MEQ TAB (K-DUR) PO SCH (04:27)
[2022-11-19 04:42] LABS: ALBUMIN 2.8 GM/DL (3.2-4.5); POTASSIUM 3.9 MMOL/L (3.6-5.0)
[2022-11-19 04:43] LABS: CALCIUM 8.3 MG/DL (8.5-10.1)
[2022-11-19 04:45] LABS: TOTAL PROTEIN 6.2 GM/DL (6.4-8.2)
[2022-11-19 04:46] LABS: BILIRUBIN,TOTAL 0.4 MG/DL (0.1-1.0)
[2022-11-19] MEDS: POTASSIUM CL 10MEQ/50ML IVPB 50 ML IV SCH ×2 (04:47→05:38)
[2022-11-19 04:48] LABS: CREATININE SERUM 0.59 MG/DL (0.60-1.30); PHOSPHORUS 4.4 MG/DL (2.3-4.7)
[2022-11-19 04:51] LABS: MAGNESIUM 1.6 MG/DL (1.6-2.4)
[2022-11-19] MEDS: MAGNESIUM 1 GM/100 ML IVPB 100 ML IV SCH ×4 (05:04→07:10)
[2022-11-19 07:50] VITALS: BP 134/70
[2022-11-19] MEDS: VASOPRESSIN INJECTION 20 UNIT in NS (IVPB) 100 ML IV SCH (07:50)
[2022-11-19] MEDS: PANTOPRAZOLE 40 MG (PROTONIX) VIAL IV SCH (08:41)
[2022-11-19] MEDS ORDERED: LORazepam 1 MG (ATIVAN) TAB PO PRN (10:30)
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
--- NOTE | 2022-11-19 11:09 | Progress Note - Hospitalist ---
Subjective HPI/CC On Admission Date Seen by Provider: Nov 19, 2022 Anna Sims is a 41 yo F who arrived to the ED on 11/17/22 by EMS after being found unresponsive in someone's yard. Narcan was administered at the scene and patient was reported to have woken immediately combative, wailing, and not following commands. Patient is reported to be familiar to EMS and a known history of alcohol and substance abuse. After administration of Narcan, her O2 sat was 99% on room air, BP of 125/70, and heart rates in the 110s. On ED arrival, patient was reportedly thrashing, wailing, and uncooperative which ultimately required restraint by ED staff. Patient was intubated shortly after arrival. Sepsis lab were initiated due to facial cellulitis and possible infiltrates on CXR. This morning she is intubated and sedated. No family in room. Vent settings: TV 450 / RR 20 / PEEP 5.5 / FiO2 30% Focused Exam Lactate Level 11/16/22 23:30: Lactic Acid Level 2.38*H 11/17/22 01:54: Lactic Acid Level 1.82 Time of Focused Exam: 22:00 Objective Exam Vital Signs Vital Signs Date Time Temp Pulse Resp B/P (MAP) Pulse Ox O2 Delivery O2 Flow Rate FiO2 11/19/22 12:39 91 11/19/22 12:00 24 142/75 (97) 98 Nasal Cannula 2.00 11/19/22 08:00 37.2 11/18/22 16:00 30 Capillary Refill : Less Than 3 Seconds Results/Procedures Lab Laboratory Tests 11/19/22 04:00 Patient resulted labs reviewed. Imaging: Reviewed Imaging Report Assessment/Plan Critical Care Ventilator Management RAMSES STEWARD DO Nov 19, 2022 11:09
[2022-11-19] MEDS: THIAMINE INJECTION 100 MG, FOLIC ACID INJECTION 1 MG, MAGNESIUM SULFATE 2 GM, VITAMIN M... IV SCH ×5 (12:05)
--- NOTE | 2022-11-19 15:17 | Discharge Summary ---
Discharge Summary Hospital Course Was the Problem List Reviewed?: Yes Problems/Dx: (1) Altered mental status Status: Acute (2) Alcohol intoxication in active alcoholic Status: Acute (3) Sepsis Status: Acute (4) Rhabdomyolysis Hospital Course Date of Admission: Nov 16, 2022 at 23:46 Admission Diagnosis : Family Physician/Provider: [facility] Date of Discharge: 11/19/22 Discharge Diagnosis: [ ] Hospital Course: Standard course after she was intubated in ER and maintained ICU care for p resumed aspiration PNA. She was ultimately extubated by herself and decided to leave [place] after she had become O x 4. Labs and Pending Lab Test: Laboratory Tests 11/18/22 18:36: Glucometer 110 11/18/22 23:44: Glucometer 99 11/19/22 04:00: White Blood Count 6.4, Red Blood Count 3.89, Hemoglobin 10.1L, Hematocrit 32L, Mean Corpuscular Volume 82, Mean Corpuscular Hemoglobin 26, Mean Corpuscular Hemoglobin Concent 32, Red Cell Distribution Width 14.9H, Platelet Count 398, Mean Platelet Volume 9.6, Immature Granulocyte % (Auto) 3, Neutrophils (%) (Auto) 69, Lymphocytes (%) (Auto) 17, Monocytes (%) (Auto) 8, Eosinophils (%) (A uto) 3, Basophils (%) (Auto) 1, Neutrophils # (Auto) 4.4, Lymphocytes # (Auto) 1.1, Monocytes # (Auto) 0.5, Eosinophils # (Auto) 0.2, Basophils # (Auto) 0.1, Immature Granulocyte # (Auto) 0.2H, Sodium Level 142, Potassium Level 3.9, Chloride Level 113H, Carbon Dioxide Level 17L, Anion Gap 12, Blood Urea Nitrogen 4L, Creatinine 0.59L, Estimat Glomerular Filtration Rate 115, BUN/Creatinine Ratio 7, Glucose Level 95, Calcium Level 8.3L, Corrected Calcium 9.3, Phosphorus Level 4.4, Magnesium Level 1.6, Total Bilirubin 0.4, Aspartate Amino Transf (AST/SGOT) 15, Alanine Aminotransferase (ALT/SGPT) 39, Alkaline Phosphatase 178H , Total Protein 6.2L, Albumin 2.8L, Triglycerides Level 222H Microbiology 11/17/22 MRSA Screen - Final, Complete MRSA not isolated 11/16/22 Blood Culture - Preliminary, Resulted No growth Home Meds Active Folic Acid 1 Mg Tablet 1 Mg PO DAILY B-1 (Thiamine HCl) 100 Mg Tablet 100 Mg PO DAILY Ativan (Lorazepam) 0.5 Mg Tablet 0.5 Mg PO TID PRN Reported Zyprexa (Olanzapine) 2.5 Mg Tablet 2.5 Mg PO HS Atomoxetine HCl 40 Mg Capsule 40 Mg PO DAILY [place] Carbonate ER ([place] Carbonate) 450 Mg Tab 450 Mg PO BID Assessment/Pt Instructions left ama Discharge Planning: <30 minutes discharge planning Discharge Instructions Discharge Diet: No Restrictions Discharge Physical Examination Vital Signs Vital Signs Date Time Temp Pulse Resp B/P (MAP) Pulse Ox O2 Delivery O2 Flow Rate FiO2 11/19/22 12:39 91 11/19/22 12:00 24 142/75 (97) 98 Nasal Cannula 2.00 11/19/22 08:00 37.2 11/18/22 16:00 30 Allergies: Coded Allergies: vancomycin (Unverified Allergy, Severe, 05/11/10) metoclopramide (Unverified Adverse Reaction, Intermediate, 05/11/10) Uncoded Allergies: DARVOCET (Allergy, Intermediate, 05/11/10) Discharge Summary Date of Admission Nov 16, 2022 at 23:46 Date of Discharge Nov 19, 2022 at 13:35 Admission Diagnosis resp failure RAMSES STEWARD DO Nov 19, 2022 15:17
== END 2022-11-19 13:35 | disposition left against medical advice (07) | DRG 871 ==
LOC: EDUNIT# 20:49 → ER 20:50 → ICU 23:46
PROVIDERS: ADMIT Internal Medicine; ATTEND Internal Medicine
PROC: 5A1945Z Respiratory Ventilation, 24-96 Consecutive Hours (ICD-10-PCS; principal; 2022-11-16)
PROC: 0BH17EZ Insertion of Endotracheal Airway into Trachea, Via Natural or Artificial Opening (ICD-10-PCS; 2022-11-16)
DX: A41.9 Sepsis, unspecified organism (principal); J69.0 Pneumonitis due to inhalation of food and vomit; J96.00 Acute respiratory failure, unspecified whether with hypoxia or hypercapnia; L03.211 Cellulitis of face; L03.221 Cellulitis of neck; M62.82 Rhabdomyolysis; F19.10 Other psychoactive substance abuse, uncomplicated; F10.129 Alcohol abuse with intoxication, unspecified; F17.210 Nicotine dependence, cigarettes, uncomplicated; E03.9 Hypothyroidism, unspecified; F41.9 Anxiety disorder, unspecified; F32.A Depression, unspecified; D64.9 Anemia, unspecified; Z20.822 Contact with and (suspected) exposure to COVID-19
CPT/HCPCS: 36415; 36600; 51702; 70450; 70486; 71045; 72125; 80053; 80306; 80320; 81000; 82140; 82150; 82550; 82553; 82805; 82947; 83605; 83690; 83735; 83874; 84100; 84478; 84484; 84703; 85007; 85025; 85027; 85610; 85652; 85730; 86141; 87040; 87077; 87081; 87636; 93005; 93041; 94002; 94003; 94799

== ENCOUNTER 2023-05-11 17:12 | Emergency (ER) | payer BC ==
[~2023-05-11] VITALS: Ht 162 cm; Wt 54.0 kg
[~2023-05-11 17:12] MED LIST changes: +POTA-330 PO; -POTA-51 PO
[2023-05-11] MEDS ORDERED: NS IV 1000 ML 1,000 ML IV SCH (17:45)
[2023-05-11] MEDS ORDERED: LevETIRAcetam 500 MG TABLET PO ONE (17:45)
[2023-05-11 17:54] LABS: BASOPHILS % (AUTO) 1 % (0-10); EOSINOPHILS # (AUTO) 0.1 10^3/uL (0.0-0.3); EOSINOPHILS % (AUTO) 1 % (0-10); HEMATOCRIT 37 % (35-52); HEMOGLOBIN 11.3 g/dL (11.5-16.0); LYMPHOCYTES % (AUTO) 12 % (12-44); MEAN CORPUSCULAR HEMOGLOBIN 24 pg (25-34); MEAN CORPUSCULAR HGB CONC 31 g/dL (32-36); MEAN CORPUSCULAR VOLUME 80 fL (80-99); MEAN PLATELET VOLUME 9.2 fL (9.0-12.2); MONOCYTES # (AUTO) 0.4 10^3/uL (0.0-1.0); MONOCYTES % (AUTO) 4 % (0-12); NEUTROPHILS # (AUTO) 7.2 10^3/uL (1.8-7.8); NEUTROPHILS % (AUTO) 83 % (42-75); PLATELET COUNT 495 10^3/uL (130-400); WHITE BLOOD COUNT 8.6 10^3/uL (4.3-11.0)
[2023-05-11 17:56] LABS: ALBUMIN 3.9 GM/DL (3.2-4.5); CHLORIDE 106 MMOL/L (98-107); POTASSIUM 3.3 MMOL/L (3.6-5.0); SODIUM 139 MMOL/L (135-145)
[2023-05-11 17:57] LABS: CALCIUM 9.1 MG/DL (8.5-10.1)
--- NOTE | 2023-05-11 17:57 | ED Neurological Problem ---
General Chief Complaint: Neurological Problems Stated Complaint: SEIZURE Nursing Triage Note: WITNESSED GRANDMAL SEIZURE AT HOME THAT LASTED APPX 5 MINUTES. PT HIT HER HEAD ON THE FLOOR AND BIT HER TONGUE ON BOTH SIDES. PT STOPPED HER KEPPRA IN NOVEMBER. STATES SHE TOOK ONE APPX 2 WEEKS AGO. PT HAS HAS HAD X3 SEIZURES IN THE LAST YEAR. Source: patient Exam Limitations: no limitations History of Present Illness Date Seen by Provider: May 11, 2023 Time Seen by Provider: 17:30 Initial Comments 42-year-old female presents the ER via EMS for a seizure. Seizure was witnessed, he states that he thinks the seizure lasted approximately 5 minutes. He states that she was standing and started making a funny noise, she then fell backwards into the fireplace and onto the ground, then she started convulsing. She hit her head, laceration noted to left side of head. She also bit both sides of her tongue. She denies any recent illness. States she has been feeling fine. She states she was outside doing a lot of yard work today and got hot. She is currently alert and oriented x4. EMS reports that she was still mildly confused when they arrived. She has had seizures in the past, was taking Keppra, but stopped because she did not think she needed it. She has a history of alcohol abuse, states that she last drank alcohol 1 month ago. Denies any drug use. Allergies and Home Medications Allergies Coded Allergies: vancomycin (Unverified Allergy, Severe, 05/11/10) metoclopramide (Unverified Adverse Reaction, Intermediate, 05/11/10) Uncoded Allergies: DARVOCET (Allergy, Intermediate, 05/11/10) Patient Home Medication List Home Medication List Reviewed: Yes Atomoxetine HCl (Atomoxetine HCl) 40 Mg Capsule, 40 MG PO DAILY, (Reported) Entered as Reported by: VICENTE TUCKER on 10/21/22 1139 Folic Acid (Folic Acid) 1 Mg Tablet, 1 MG PO DAILY Prescribed by: RAMSES STEWARD on 10/23/22 1156 [place] Carbonate ([place] Carbonate ER) 450 Mg Tab, 450 MG PO BID, (Reported) Entered as Reported by: VICENTE TUCKER on 10/21/22 1139 Lorazepam (Ativan) 0.5 Mg Tablet, 0.5 MG PO TID PRN for ANXIETY Prescribed by: RAMSES STEWARD on 10/23/22 1155 Olanzapine (Zyprexa) 2.5 Mg Tablet, 2.5 MG PO HS, (Reported) Entered as Reported by: VICENTE TUCKER on 10/21/22 1139 Thiamine HCl (B-1) 100 Mg Tablet, 100 MG PO DAILY Prescribed by: RAMSES STEWARD on 10/23/22 1156 Review of Systems Review of Systems Constitutional: see HPI Past Xuirzdi-Yzrwbo-Lwpiqx Hx Patient Social History Tobacco Use?: Yes Use of E-Cig and/or Vaping dev: Yes E-Cig or Vaping type used: Nicotine Alcohol Use?: No Immunizations Up To Date Tetanus Booster (TDap): Unknown First/Initial COVID19 Vaccinat: UNKNOWN Second COVID19 Vaccination Jose: UNKNOWN Third COVID19 Vaccination Date: UNKNOWN Seasonal Allergies Seasonal Allergies: No Past Medical History Surgery/Hospitalization HX: bipolar Surgeries: Yes (SMALL BOWEL RESECTION FOR CROHN'S) Abdominal, Bowel Surgery, Gallbladder, Tubal Ligation Respiratory: No Cardiac: No Neurological: No 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 Disorders: No MEDICAL RECORD SPECIALIST History: Tubal Ligation Genitourinary: No Gastrointestinal: Yes (S/P SMALL BOWEL RESECTION; S/P CHOLECYSTECTOMY) Crohns Disease, Gall Bladder Disease Musculoskeletal: No Endocrine: Yes Hypothyroidsim HEENT: No Cancer: No Psychosocial: Yes (ALCOHOLISM) Anxiety, Suicide Attempts, Bipolar, Depression Integumentary: No Blood Disorders: No Adverse Reaction/Blood Tranf: No Family Medical History No Pertinent Family Hx SOCIAL HISTORY: -SMOKES 1 PPD, ALSO VAPES -ETOH--HEAVY/DAILY USE -DRUGS--RX DRUG ABUSE Physical Exam Vital Signs Vital Signs - First Documented 05/11/23 17:18 Temp 37.0 Pulse 109 Resp 16 B/P (MAP) 145/102 (116) Pulse Ox 95 O2 Delivery Room Air Capillary Refill : Less Than 3 Seconds Height, Weight, BMI Height: 5'4.00" Weight: 120lbs. oz. 54.689016he; 20.00 BMI Method:Stated General Appearance: WD/WN, no apparent distress Neck: supple, normal inspection Respiratory: lungs clear, normal breath sounds, no respiratory distress, no accessory muscle use Cardiovascular: regular rate, rhythm Extremities: normal range of motion, normal inspection Neurologic/Psychiatric: him assistant II-XII nml as tested, no motor/sensory deficits, alert, normal mood/affect, oriented x 3 Cra[place] Nerves: normal hearing, normal speech, PERRL Skin: normal color, warm/dry Procedures/Interventions Date of ETT Placement: Nov 16, 2022 Time of ETT Placement: 2117 Wound Location: Scalp Other Wound Location Left-sided of head Wound Length (cm): 2.5 Wound's Depth, Shape: linear Betadine Prep?: Yes Anesthesia: 1% Lidocaine Volume Anesthetic (ccs): 2 Staple Repair: Stapler 35W Number of Sutures: 4 Progress/Results/Core Measures Results/Orders Lab Results Laboratory Tests Test 05/11/23 17:19 05/11/23 17:32 05/11/23 18:09 Range/Units White Blood Count 8.6 4.3-11.0 10^3/uL Red Blood Count 4.64 3.80-5.11 10^6/uL Hemoglobin 11.3 L 11.5-16.0 g/dL Hematocrit 37 35-52 % Mean Corpuscular Volume 80 80-99 fL Mean Corpuscular Hemoglobin 24 L 25-34 pg Mean Corpuscular Hemoglobin Concent 31 L 32-36 g/dL Red Cell Distribution Width 19.6 H 10.0-14.5 % Platelet Count 495 H 130-400 10^3/uL Mean Platelet Volume 9.2 9.0-12.2 fL Immature Granulocyte % (Auto) 0 % Neutrophils (%) (Auto) 83 H 42-75 % Lymphocytes (%) (Auto) 12 12-44 % Monocytes (%) (Auto) 4 0-12 % Eosinophils (%) (Auto) 1 0-10 % Basophils (%) (Auto) 1 0-10 % Neutrophils # (Auto) 7.2 1.8-7.8 10^3/uL Lymphocytes # (Auto) 1.0 1.0-4.0 10^3/uL Monocytes # (Auto) 0.4 0.0-1.0 10^3/uL Eosinophils # (Auto) 0.1 0.0-0.3 10^3/uL Basophils # (Auto) 0.0 0.0-0.1 10^3/uL Immature Granulocyte # (Auto) 0.0 0.0-0.1 10^3/uL Sodium Level 139 135-145 MMOL/L Potassium Level 3.3 L 3.6-5.0 MMOL/L Chloride Level 106 98-107 MMOL/L Carbon Dioxide Level 23 21-32 MMOL/L Anion Gap 10 5-14 MMOL/L Blood Urea Nitrogen 5 L 7-18 MG/DL Creatinine 0.81 0.60-1.30 MG/DL Estimat Glomerular Filtration Rate 92 BUN/Creatinine Ratio 6 Glucose Level 134 H 70-105 MG/DL Calcium Level 9.1 8.5-10.1 MG/DL Corrected Calcium 9.2 8.5-10.1 MG/DL Magnesium Level 1.9 1.6-2.4 MG/DL Total Bilirubin 0.4 0.1-1.0 MG/DL Aspartate Amino Transf (AST/SGOT) 19 5-34 U/L Alanine Aminotransferase (ALT/SGPT) 9 0-55 U/L Alkaline Phosphatase 66 40-136 U/L Total Protein 7.5 6.4-8.2 GM/DL Albumin 3.9 3.2-4.5 GM/DL Serum Alcohol < 10 <10 MG/DL Glucometer 120 H 70-110 MG/DL Urine Color YELLOW Urine Clarity CLEAR Urine pH 7.0 5-9 Urine Specific [place] 1.010 L 1.016-1.022 Urine Protein NEGATIVE NEGATIVE Urine Glucose (UA) NEGATIVE NEGATIVE Urine Ketones NEGATIVE NEGATIVE Urine Nitrite NEGATIVE NEGATIVE Urine Bilirubin NEGATIVE NEGATIVE Urine Urobilinogen 0.2 < = 1.0 MG/DL Urine Leukocyte Esterase NEGATIVE NEGATIVE Urine RBC (Auto) NEGATIVE NEGATIVE Urine RBC NONE /HPF Urine WBC 0-2 /HPF Urine Squamous Epithelial Cells 10-25 H /HPF Urine Crystals NONE /LPF Urine Bacteria TRACE /HPF Urine Casts NONE /LPF Urine Mucus SMALL H /LPF Urine Culture Indicated NO Urine Opiates Screen NEGATIVE NEGATIVE Urine Oxycodone Screen NEGATIVE NEGATIVE Urine Methadone Screen NEGATIVE NEGATIVE Urine Propoxyphene Screen NEGATIVE NEGATIVE Urine Barbiturates Screen NEGATIVE NEGATIVE Ur Tricyclic Antidepressants Screen NEGATIVE NEGATIVE Urine Phencyclidine Screen NEGATIVE NEGATIVE Urine Amphetamines Screen NEGATIVE NEGATIVE Urine Methamphetamines Screen NEGATIVE NEGATIVE Urine Benzodiazepines Screen NEGATIVE NEGATIVE Urine Cocaine Screen NEGATIVE NEGATIVE Urine Cannabinoids Screen NEGATIVE NEGATIVE My Orders Orders - DESIRAE SANCHEZ R MINER ASSISTANT Cbc With Automated Diff (05/11/23 17:43) Comprehensive Metabolic Panel (05/11/23 17:43) Magnesium (05/11/23 17:43) Alcohol (05/11/23 17:43) Drug Screen Stat (Urine) (05/11/23 17:43) Ua Culture If Indicated (05/11/23 17:43) Ed Iv/Invasive Line Start (05/11/23 17:43) Ns Iv 1000 Ml (Sodium Chloride 0.9%) (05/11/23 17:45) Ct Head/Cervical Spine Wo (05/11/23 17:43) Levetiracetam Tablet (Levetiracetam Tabl (05/11/23 17:45) Potassium Chloride (Tablet) (Potassium C (05/11/23 18:30) Ibuprofen Tablet (Ibuprofen Tablet) (05/11/23 19:00) Ibuprofen Tablet (Ibuprofen Tablet) (05/11/23 18:50) Medications Given in ED Current Medications Medications Dose Ordered Sig/Amaris Route Start Time Stop Time Status Last Admin Dose Admin Ibuprofen 800 mg ONCE ONCE PO 05/11/23 19:00 05/11/23 19:01 DC 05/11/23 18:52 800 MG Levetiracetam 500 mg ONCE ONCE PO 05/11/23 17:45 05/11/23 17:46 DC 05/11/23 17:58 500 MG Potassium Chloride 40 meq ONCE ONCE PO 05/11/23 18:30 05/11/23 18:31 DC 05/11/23 18:51 40 MEQ Vital Signs/I&O 05/11/23 17:18 Temp 37.0 Pulse 109 Resp 16 B/P (MAP) 145/102 (116) Pulse Ox 95 O2 Delivery Room Air Blood Pressure Mean: 116 FSBG Bedside Testing Finger Stick Blood Glucose: 120 Progress Progress Note : Progress Note Patient seen and evaluated, resting comfortably in bed, no acute distress, she is currently alert and oriented, answering questions appropriately. Based on exam and symptoms, work-up initiated including CBC, CMP, magnesium, alcohol leve l, UA, urine drug screen, CT head and neck. IV fluids and Keppra ordered. Departure Impression Primary Impression: Seizure Additional Impressions: Head injury Laceration Disposition: HOME, SELF-CARE Condition: Stable Departure-Patient Inst. Decision time for Depature: 19:06 Referrals: [facility] (PCP/Family) Primary Care Physician Patient Instructions: Seizures Add. Discharge Instructions: Take your Keppra as prescribed. Return in 7 to 10 days to have the vicente removed. You may wash your hair, let water and soap run over it, do not scrub. Do not soak your head. Return for signs of infection including redness, swelling, abnormal drainage from the laceration site, abnormal behavior, difficulty doing normal activities, vision changes, weakness on one side your body, or any other new, concerning, or worsening symptoms. All discharge instructions reviewed with patient and/or family. Voiced understanding. Scripts Levetiracetam (Keppra) 500 Mg Tablet 500 MG PO BID for 30 Days, #60 TAB 0 Refills Prov: DESIRAE SANCHEZ APRN 05/11/23 DESIRAE SANCHEZ APRN May 11, 2023 17:57
[2023-05-11 17:58] LABS: GLUCOSE 134 MG/DL (70-105); TOTAL PROTEIN 7.5 GM/DL (6.4-8.2)
[2023-05-11 17:59] LABS: CARBON DIOXIDE 23 MMOL/L (21-32)
[2023-05-11 18:00] LABS: BILIRUBIN,TOTAL 0.4 MG/DL (0.1-1.0)
[2023-05-11 18:02] LABS: ALKALINE PHOSPHATASE 66 U/L (40-136); CREATININE SERUM 0.81 MG/DL (0.60-1.30); GFR ESTIMATED 92
[2023-05-11 18:03] LABS: BUN/CREATININE RATIO 6
[2023-05-11 18:05] LABS: ALANINE AMINOTRANSFERASE 9 U/L (0-55); MAGNESIUM 1.9 MG/DL (1.6-2.4)
--- NOTE | 2023-05-11 18:18 | Diagnostic Imaging Report ---
PROCEDURE: CT head and CT cervical spine without contrast. TECHNIQUE: Multiple contiguous axial images were obtained through the brain and cervical spine without the use of intravenous contrast. Sagittal and coronal reformations through the cervical spine were then performed. Auto Exposure Controls were utilized during the CT exam to meet ALARA standards for radiation dose reduction. INDICATION: Trauma. Seizure. Head injury. COMPARISON: 11/16/2022. FINDINGS: CT HEAD: No intracranial hemorrhage, mass effect, hydrocephalus or extra-axial fluid collections. No CT evidence of a territorial infarction. Osseous structures are intact. Visualized paranasal sinuses and mastoids are clear. CT CERVICAL SPINE: Mild to moderate spondylotic changes. Normal alignment. Vertebral body heights are preserved. No fractures. No CT evidence of high-grade spinal canal stenosis. Visualized paravertebral soft tissues are unremarkable. The lung apices are clear. IMPRESSION: No acute intracranial or cervical spine CT findings. Dictated by: Dictated on workstation # [id number]
[2023-05-11] MEDS ORDERED: POTASSIUM CHLORIDE 20 MEQ TABLET PO ONE (18:30)
[2023-05-11 18:31] LABS: BILIRUBIN,URINE NEGATIVE (NEGATIVE); CLARITY,URINE CLEAR; COLOR,URINE YELLOW; GLUCOSE, URINE (UA) NEGATIVE (NEGATIVE); KETONES,URINE NEGATIVE (NEGATIVE); NITRITE,URINE NEGATIVE (NEGATIVE); PROTEIN,URINE NEGATIVE (NEGATIVE)
[2023-05-11 18:32] LABS: BACTERIA,URINE TRACE /HPF; LEUKOCYTE ESTERASE ,URINE NEGATIVE (NEGATIVE); WBC,URINE 0-2 /HPF
[2023-05-11 18:33] LABS: AMPHETAMINE SCREEN, URINE NEGATIVE (NEGATIVE); BARBITURATE SCREEN URINE NEGATIVE (NEGATIVE); BENZODIAZEPINES SCREEN URINE NEGATIVE (NEGATIVE); CANNABINOID SCREEN, URINE NEGATIVE (NEGATIVE); COCAINE SCREEN URINE NEGATIVE (NEGATIVE); METHADONE STAT NEGATIVE (NEGATIVE); OPIATE SCREEN URINE NEGATIVE (NEGATIVE); OXYCODONE STAT NEGATIVE (NEGATIVE); PROPOXYPHENE STAT NEGATIVE (NEGATIVE); TRICYCLIC ANTIDEPRESSANTS SCRE NEGATIVE (NEGATIVE)
[2023-05-11] MEDS ORDERED: IBUPROFEN 800 MG TABLET PO ONE ×2 (18:50→19:00)
[2023-05-11] MEDS ORDERED: LEVE500T99 PO (19:10)
[2023-05-11 19:20] VITALS: BP 134/98
== END 2023-05-11 19:20 | disposition home or self-care (01) ==
LOC: EDUNIT# 17:12 → ER 17:13
DX: S09.90XA Unspecified injury of head, initial encounter (principal); S01.01XA Laceration without foreign body of scalp, initial encounter; G40.909 Epilepsy, unspecified, not intractable, without status epilepticus; T42.6X6A Underdosing of other antiepileptic and sedative-hypnotic drugs, initial encounter; F17.210 Nicotine dependence, cigarettes, uncomplicated; F17.290 Nicotine dependence, other tobacco product, uncomplicated; Z91.128 Patient's intentional underdosing of medication regimen for other reason; W18.30XA Fall on same level, unspecified, initial encounter
CPT/HCPCS: 36415; 70450; 72125; 80053; 80306; 80320; 81000; 82947; 83735; 85025

== ENCOUNTER → 2023-05-28 | Outpatient (CLI) | payer BC ==
[~2023-05-28] VITALS: Ht 162.6 cm; Wt 54.0 kg
[~2023-05-28] MED LIST changes: +GADOTERATE 0.5 MMOL/ML (CLARISCAN) 5 ML VIAL IV ONE; +HOLD METFORMIN - RECEIVED CONTRAST 20 ML VIAL IV SCH; +IOHEXOL 300 MG/ML 50 ML (OMNIPAQUE 300) VIAL IV ONE; +LEVE500T99 PO; +LIDOCAINE 1% INJ 10 ML VIAL INJ ONE
--- NOTE | 2023-05-28 14:24 | Diagnostic Imaging Report ---
INDICATION: Right hip pain. Patient presents for right hip injection prior to MRI. Patient was brought to the procedure room and placed on table in the supine position. The right hip was prepped and draped in the usual sterile fashion. A small amount of 1% lidocaine was utilized for local anesthesia. A 20-gauge needle was advanced into the right hip at the femoral head-neck junction laterally. 50 mL solution of iodinated contrast, normal saline, and gadolinium was injected under fluoroscopic observation. 17.8 seconds of fluoroscopic time was utilized. Reference air kerma is 44 mGy. IMPRESSION: Right hip injection using fluoroscopy for MRI. Dictated by: Dictated on workstation # [id number]
--- NOTE | 2023-05-28 14:58 | Diagnostic Imaging Report ---
EXAMINATION: Magnetic resonance imaging of the pelvis and right hip with intra-articular contrast DATE: May 28, 2023. COMPARISON: Radiographs of the pelvis November 02, 2018. Right hip arthrogram May 28, 2023. INDICATION: 42-year-old female, right hip pain. Instability. TECHNIQUE: Magnetic Resonance Imaging sequences were performed of the pelvis the right hip following the intra-articular administration of contrast. TENDONS AND MUSCLES: The gluteus toni muscles and their origins and insertions are intact bilaterally. The tendons and muscles of the greater trochanter - gluteus minimus, piriformis and gluteus medius - are intact bilaterally. Both common hamstring attachments on the ischial tuberosities are intact and the extensor muscles of the thigh are intact. The visualized portions of the flexors and adductor muscles of the thigh and their attachments on the pelvis and hips are intact. Both iliopsoas and iliacus muscles are intact. The bilateral iliopsoas tendons are intact. HIPS AND SACROILIAC JOINTS: There is incomplete coverage of the lateral aspect of the right femoral head by the acetabulum. There is no identified tear of the right hip labrum. There is no paralabral cyst. There is no identified intra-articular body or prominent synovitis. There is mild to moderate cartilage loss of the right hip joint. There is a large left hip joint effusion. There is no identified fluid-filled left hip labral tear or paralabral cyst. There is no definite discrete cartilage defect of the left hip. The sacroiliac joints are unremarkable. LUMBAR SPINE: There is severe disc height loss with endplate degenerative related changes at L5-S1. There is otherwise limited assessment of the lumbar spine. BONE: There is no acute fracture, bone contusion, or evidence of osteonecrosis. BURSAE AND SOFT TISSUES: There is a cystic left adnexal lesion measuring 4.2 cm in size which most likely reflects an ovarian cyst. There is a small amount of free pelvic fluid which is potentially physiologic. There is soft tissue edema near the right hip joint. IMPRESSION: 1. Incomplete coverage lateral aspect of the femoral head on the right by the acetabulum. 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 2. Large left hip joint effusion without identified cartilage defect. 3. Severe disc degenerative changes at L5-S1. 4. Intact muscles and tendons. 5. No acute fracture, bone contusion, or evidence of osteonecrosis. Dictated by: Dictated on workstation # [id number]
== END ==
LOC: RAD 12:00
PROVIDERS: ATTEND Family Medicine
DX: M16.11 Unilateral primary osteoarthritis, right hip (principal); M25.452 Effusion, left hip; M51.37 Other intervertebral disc degeneration, lumbosacral region; S73.00 Unspecified subluxation and dislocation of hip; K50.90 Crohn's disease, unspecified, without complications
CPT/HCPCS: 27093; 73525; 73722